=== PATIENT | female | born 1960 | race Caucasian/White ===

== ENCOUNTER 2018-04-14 08:26 | Emergency (ER) | payer BC ==
--- NOTE | 2018-04-14 09:09 | ED ---
Back Pain - HPI Summary HPI Summary: Pt. is a 57-year-old female who presents emergency department for right posterior rib pain since yesterday. Pt. states she has a history of COPD, smoker and a chronic cough. She states yesterday she went to get out of her recliner when she started coughing and felt a pop in her right low posterior rib cage. Pain is worse with deep inspiration and movement. She denies increase in SOB, cough, sputum production, fever. Pt. take lortab chronically at home. She does have a hx of blood clots but is currently therapeutic on Coumadin. Symptoms are mild in severity. - History of Current Complaint Chief Complaint: EDBackInjuryPain Stated Complaint: COUGH/BACK PAIN Time Seen by Provider: 04/14/18 08:48 Hx Obtained From: Patient Hx Last Menstrual Period: perimenopausal Pain Intensity: 10 - Allergies/Home Medications Allergies/Adverse Reactions: Allergies Allergy/AdvReac Type Severity Reaction Status Date / Time ciprofloxacin Allergy See Comment Verified 04/14/18 08:29 colchicine Allergy Nausea And Verified 04/14/18 08:29 Vomiting loratadine [From Claritin] Allergy Shortness Verified 04/14/18 08:29 of Breath Home Medications: Home Medications Allopurinol TAB* [Zyloprim 300 MG TAB*] 300 mg PO DAILY 04/14/18 [History Confirmed 04/14/18] Folic Acid 1 mg PO DAILY 04/14/18 [History Confirmed 04/14/18] Gabapentin CAP(*) [Neurontin 300 CAP(*)] 600 mg PO TID 04/14/18 [History Confirmed 04/14/18] Methotrexate TAB* 15 mg PO WEEKLY 04/14/18 [History Confirmed 04/14/18] Rosuvastatin Calcium 5 mg PO DAILY 04/14/18 [History Confirmed 04/14/18] PMH/Surg Hx/FS Hx/Imm Hx Previously Healthy: Yes Endocrine/Hematology History: Reports: Hx Anticoagulant Therapy, Hx Diabetes Denies: Hx Thyroid Disease Cardiovascular History: Reports: Hx Deep Vein Thrombosis, Hx Hypertension, Other Cardiovascular Problems/Disorders - HX OF 2 CLOTS IN LEFT LEG Denies: Hx Pacemaker/ICD Respiratory History: Reports: Hx Asthma, Hx Chronic Bronchitis, Hx Chronic Obstructive Pulmonary Disease (COPD), Hx Seasonal Allergies, Hx Sleep Apnea, Other Respiratory Problems/Disorders - COPD GI History: Reports: Hx Gastroesophageal Reflux Disease Denies: Hx Ulcer History: Denies: Hx Dialysis, Hx Renal Disease Musculoskeletal History: Reports: Hx Arthritis - PSORIATIC, Hx Back Problems - chronic low back pain, s/p laminectomy, Other Musculoskeletal History - right ankle pain Sensory History: Reports: Hx Contacts or Glasses - GLASSES Denies: Hx Hearing Aid Opthamlomology History: Reports: Hx Contacts or Glasses - GLASSES Psychiatric History: Reports: Hx Anxiety, Hx Depression Denies: Hx Panic Disorder - Surgical History Surgery Procedure, Year, and Place: laminectomy l-spine 2009. right ankle surgery X2 REMOVED ALL HARDWARE 10/31. carpal tunnel release right and left. GALLBLADDER Hx Anesthesia Reactions: No Infectious Disease History: Yes Infectious Disease History: Reports: Hx of Known/Suspected MRSA Denies: Hx Hepatitis, Hx Human Immunodeficiency Virus (HIV), Traveled Outside the [place] in Last 30 Days - Social History Occupation: Retired Lives: With Family Alcohol Use: Rare Substance Use Type: Reports: None Hx Tobacco Use: Yes - 1/2 PACK A DAY Smoking Status (MU): Current Every Day Smoker Type: Cigarettes Amount Used/How Often: 1 PPD X 30 YEARS Have You Smoked in the Last Year: Yes Review of Systems Constitutional: Negative Negative: Fever, Chills Cardiovascular: Negative Negative: Palpitations, Chest Pain Positive: Cough. Negative: Shortness Of Breath Neurological: Negative All Other Systems Reviewed And Are Negative: Yes Physical Exam Triage Information Reviewed: Yes Vital Signs On Initial Exam: Initial Vitals Temp Pulse Resp BP Pulse Ox 98.4 F 85 20 126/71 94 04/14/18 08:29 04/14/18 08:29 04/14/18 08:29 04/14/18 08:29 04/14/18 08:29 Vital Signs Reviewed: Yes Appearance: Positive: Well-Appearing - Pt. sitting on side of bed in NAD. Breathing easily on RA. Skin: Positive: Warm, Dry Head/Face: Positive: Normal Head/Face Inspection Eyes: Positive: Normal, EOMI Neck: Positive: Supple Respiratory/Lung Sounds: Positive: Other - Diminished breath sounds throughout without rales, wheezing or rhonchi. Pain on palpation to right low posterior rib cage Cardiovascular: Positive: Normal, RRR Neurological: Positive: Normal, CN Intact II-III Psychiatric: Positive: Affect/Mood Appropriate Diagnostics - Vital Signs Vital Signs Temp Pulse Resp BP Pulse Ox 04/14/18 08:29 98.4 F 85 20 126/71 94 - Laboratory Lab Statement: Any lab studies that have been ordered have been reviewed, and results considered in the medical decision making process. Back Pain Course/Dx - Course Assessment/Plan: Pt. presenting for rib pain after a coughing episode. She is afebrile. O2 saturation is 94% on RA which is low normal. Will obtain chest and rib xray. - Diagnoses Differential Diagnosis/HQI/PQRI: Positive: Strain, Sprain Provider Diagnoses: Pain in rib Discharge - Sign-Out/Discharge Documenting (check all that apply): Patient Departure - Discharge Plan Condition: Good Disposition: HOME Prescriptions: Azithromycin TAB* [Zithromax TAB (Z-ESAN) 250 mg #6 tabs] 2 tab PO .TODAY, THEN 1 DAILY #1 sean Patient Education Materials: Muscle Strain (ED), Bacterial Pneumonia (ED), Rib Contusion (ED) Referrals: Calixto Rodriguez MD [Primary Care Provider] - Additional Instructions: Schedule a follow up appointment with PCP Chest xray is showing possible pneumonia- given increase cough and sputum will start antibiotic Apply ice or heat to back Can continue pain medications as directed Return to ER for increased pain, fever, difficulty breathing - Billing Disposition and Condition Condition: GOOD Disposition: Home
--- NOTE | 2018-04-14 10:50 | RAD ---
INDICATION: Posterior right rib pain COMPARISON: CT of the chest dated August 08, 2017 TECHNIQUE: 7 views of the right ribs were obtained. FINDINGS: There are no radiographically apparent fractures or dislocations involving the ribs. There is a mild degree of cardiomegaly. The lungs overall exhibit mildly increased interstitial density. There is a questionable more focal density at the right lung base. IMPRESSION: 1. No radiographically apparent displaced rib fracture or pneumothorax. 2. Density at the right lung base possibly could represent pneumonia or atelectasis. 3. Overall the lungs exhibit increased interstitial density similar to the August 08, 2017 CT of the chest.
[2018-04-14 11:05] VITALS: BP 130/71
== END 2018-04-14 11:04 | disposition home or self-care (01) ==
LOC: ED 08:26
DX: R07.81 Pleurodynia (principal); J98.4 Other disorders of lung; I51.7 Cardiomegaly; F17.210 Nicotine dependence, cigarettes, uncomplicated; Z86.718 Personal history of other venous thrombosis and embolism; Z79.01 Long term (current) use of anticoagulants; Z88.3 Allergy status to other anti-infective agents; Z88.8 Allergy status to other drugs, medicaments and biological substances
CPT/HCPCS: 99282

== ENCOUNTER 2018-05-19 08:24 | Inpatient (IN) | payer BC ==
[2018-05-19] MEDS ORDERED: NS 0.9% 1000 ML* 1,000 ML IV ONE (09:05)
[2018-05-19] MEDS ORDERED: Diltiazem IV* 5 MG/ML 5 ML VIAL (for loading dose/IV Push) (25 MG) IV SLOW PU ONE (09:08)
--- NOTE | 2018-05-19 09:09 | ED ---
Back Pain - HPI Summary HPI Summary: This patient is a 57 year old F presenting to [facility] accompanied by with a chief complaint of R rib pain radiating to her back that began 8 weeks ago. The patient rates the pain 10/10 in severity. Symptoms aggravated by nothing. Symptoms alleviated by nothing. Patient reports swelling of bilateral feet and legs (began 3 days ago), tingling in bilateral feet (chronic), SOB, decreased urinary output, and loose stool with blood. Patient denies CP and palpitations. Patient states she was told she had a slightly dislocated rib after going to urgent care on 05/15/2018. - History of Current Complaint Chief Complaint: EDGeneral Stated Complaint: BACK PAIN Time Seen by Provider: 05/19/18 08:48 Hx Obtained From: Patient Hx Last Menstrual Period: perimenopausal Onset/Duration: Sudden Onset, Lasting Weeks, Still Present Onset/Duration: Started Weeks Ago, Still Present Timing: Constant Back Pain Location: Is Diffuse Severity Initially: Severe Severity Currently: Severe Pain Intensity: 10 Pain Scale Used: 0-10 Numeric Aggravating Symptom(s): Nothing Alleviating Symptom(s): Nothing Associated Signs And Symptoms: Positive: Other - Positive swelling of bilateral feet and legs (began 3 days ago), tingling in bilateral feet (chronic), SOB, decreased urinary output, and loose stool with blood. Negative CP and palpitations. - Allergies/Home Medications Allergies/Adverse Reactions: Allergies Allergy/AdvReac Type Severity Reaction Status Date / Time ciprofloxacin Allergy See Comment Verified 05/19/18 08:33 colchicine Allergy Nausea And Verified 05/19/18 08:33 Vomiting loratadine [From Claritin] Allergy Shortness Verified 05/19/18 08:33 of Breath Home Medications: Home Medications Gabapentin CAP(*) [Neurontin 300 CAP(*)] 1,200 mg PO BEDTIME 05/19/18 [History Confirmed 05/19/18] Warfarin TAB(*) [Coumadin TAB(*)] 5 mg PO TUTH 05/19/18 [History Confirmed 05/19] PMH/Surg Hx/FS Hx/Imm Hx Previously Healthy: No Endocrine/Hematology History: Reports: Hx Anticoagulant Therapy, Hx Diabetes Denies: Hx Thyroid Disease Cardiovascular History: Reports: Hx Deep Vein Thrombosis, Hx Hypertension, Other Cardiovascular Problems/Disorders - HX OF 2 CLOTS IN LEFT LEG Denies: Hx Pacemaker/ICD Respiratory History: Reports: Hx Asthma, Hx Chronic Bronchitis, Hx Chronic Obstructive Pulmonary Disease (COPD), Hx Seasonal Allergies, Hx Sleep Apnea, Other Respiratory Problems/Disorders - COPD GI History: Reports: Hx Gastroesophageal Reflux Disease Denies: Hx Ulcer History: Denies: Hx Dialysis, Hx Renal Disease Musculoskeletal History: Reports: Hx Arthritis - PSORIATIC, Hx Back Problems - chronic low back pain, s/p laminectomy, Other Musculoskeletal History - right ankle pain Denies: Hx Scoliosis Sensory History: Reports: Hx Contacts or Glasses - GLASSES Denies: Hx Hearing Aid Opthamlomology History: Reports: Hx Contacts or Glasses - GLASSES Neurological History: Denies: Hx Headaches Psychiatric History: Reports: Hx Anxiety, Hx Depression Denies: Hx Panic Disorder - Surgical History Surgery Procedure, Year, and Place: laminectomy l-spine 2009. right ankle surgery X2 REMOVED ALL HARDWARE 10/31. carpal tunnel release right and left. GALLBLADDER Hx Anesthesia Reactions: No - Immunization History Immunizations Up to Date: Yes Infectious Disease History: No Infectious Disease History: Reports: Hx of Known/Suspected MRSA Denies: Hx Hepatitis, Hx Human Immunodeficiency Virus (HIV), Traveled Outside the [place] in Last 30 Days - Family History Known Family History: Positive: Other - Negative anesthesia reaction - Social History Occupation: Retired Lives: With Family Alcohol Use: Rare Hx Substance Use: No Substance Use Type: Reports: None Hx Tobacco Use: Yes - 1/2 PACK A DAY Smoking Status (MU): Current Every Day Smoker Type: Cigarettes Amount Used/How Often: 1 PPD X 30 YEARS Have You Smoked in the Last Year: Yes Review of Systems Negative: Palpitations, Chest Pain Positive: Shortness Of Breath Positive: Diarrhea Genitourinary: Other - Positive decreased urinary output Positive: Edema Neurological: Other - Positive tingling in bilateral feet All Other Systems Reviewed And Are Negative: Yes Physical Exam - Summary Physical Exam Summary: VITAL SIGNS: Reviewed. GENERAL: Patient is a well-developed and obese female who is lying comfortable in the stretcher. Patient is not in any acute respiratory distress. She is able to speak in full sentences HEAD AND FACE: No signs of trauma. No ecchymosis, hematomas or skull depressions. No sinus tenderness. EYES: PERRLA, EOMI x 2, No injected conjunctiva, no nystagmus. EARS: Hearing grossly intact. Ear canals and tympanic membranes are within normal limits. MOUTH: Oropharynx within normal limits. NECK: Supple, trachea is midline, no adenopathy, no JVD, no carotid bruit, no c- spine tenderness, neck with full ROM. CHEST: Symmetric, no tenderness at palpation LUNGS: Clear to auscultation bilaterally. No wheezing or crackles. CVS: Regular rhythm, S1 and S2 present, no murmurs or gallops appreciated. Tachycardia at 160 BPM. Hypotensive ABDOMEN: Soft, non-tender. No signs of distention. No rebound no guarding, and no masses palpated. Bowel sounds are normal. EXTREMITIES: FROM in all major joints, no cyanosis or clubbing. Bilateral lower extremity swelling 2+ NEURO: Alert and oriented x 3. No acute neurological deficits. Speech is normal and follows commands. SKIN: Dry and warm Triage Information Reviewed: Yes Vital Signs On Initial Exam: Initial Vitals Temp Pulse Resp BP Pulse Ox 98.2 F 55 16 112/89 93 05/19/18 08:26 05/19/18 08:26 05/19/18 08:26 05/19/18 08:26 05/19/18 08:26 Vital Signs Reviewed: Yes Diagnostics - Vital Signs Vital Signs Temp Pulse Resp BP Pulse Ox 05/19/18 08:26 98.2 F 55 16 112/89 93 - Laboratory Result Diagrams: 05/21/18 05:25 05/21/18 05:25 Lab Statement: Any lab studies that have been ordered have been reviewed, and results considered in the medical decision making process. - Radiology CXR Radiology Interpretation Completed By: Radiologist - CXR reveals, per radiologist, 1. COPD. 2. Pulmonary vascular congestion. ED physician has reviewed this radiology report. - CT Thoracic spine CT CT Interpretation Completed By: Radiologist - Thoracic spine CT reveals, per radiologist, 1. OSTEOPENIA. 2. DEGENERATIVE DISC DISEASE AND OSTEOARTHRITIS. 3. THERE IS NARROWING OF THE CENTRAL CANAL WITH NEUROFORAMINAL NARROWING MOST PRONOUNCED ALONG THE LOWER LUMBAR SPINE. 4. THERE HAS BEEN INTERVAL DEVELOPMENT OF A LOBULATED MASS OF THE LEFT LOWER LOBE, WITH ENLARGEMENT OF THE LEFT ADRENAL GLAND, CONCERNING FOR METASTATIC DISEASE GIVEN THE HISTORY OF MALIGNANCY. ED physician has reviewed this radiology report. Lumbar Spine cT CT Interpretation Completed By: Radiologist - Lumbar spine CT reveals, per radiologist, 1. OSTEOPENIA. 2. DEGENERATIVE DISC DISEASE AND OSTEOARTHRITIS. 3. THERE IS NARROWING OF THE CENTRAL CANAL WITH NEUROFORAMINAL NARROWING MOST PRONOUNCED ALONG THE LOWER LUMBAR SPINE. 4. THERE HAS BEEN INTERVAL DEVELOPMENT OF A LOBULATED MASS OF THE LEFT LOWER LOBE, WITH ENLARGEMENT OF THE LEFT ADRENAL GLAND, CONCERNING FOR METASTATIC DISEASE GIVEN THE HISTORY OF MALIGNANCY. ED physician has reviewed this radiology report. - EKG 0918 Cardiac Rate: NL EKG Rhythm: Sinus Rhythm - [address] Segment: Normal Back Pain Course/Dx - Course Assessment/Plan: This patient is a 57 year old F presenting to [facility] accompanied by with a chief complaint of R rib pain radiating to her back that began 8 weeks ago. The patient rates the pain 10/10 in severity. Symptoms aggravated by nothing. Symptoms alleviated by nothing. Patient reports swelling of bilateral feet and legs (began 3 days ago), tingling in bilateral feet (chronic), SOB, decreased urinary output but denies any urinary retention or incontinence, and loose stool with blood but denies any fecal retention or incontinence.. Patient denies CP and palpitations. Patient states she was told she had a slightly dislocated rib after going to urgent care on . Initially the patient was placed in a nail setter which we noticed the patient was initially the patient with RVR 160 bpm. The patient was is hypotensive 80/60. The patient is afebrile. We immediately started with 2 IV assesses and the antecubital fossa is, even though the patient has musculoskeletal extremity edema the patient was given 1 L bolus of fluids due to the hypotension. The patient completed by herself to a normal sinus rhythm at 83 bpm. Blood work shows WBCs of 14.5, hemoglobin 13.1 hematocrit 41 and platelet is 110. Potassium level is 3.2, anion gap is 12, glucose 190, lactic acid is 2.4, total bili is 1.6, AST 52 AST of 92 CRP of 28 BNP of 243 total protein is 6. And T-spine CT and LS spine CT is still pending since the patient does not tolerate to light the flat and not to get the images. However it is important to get this images to rule out any type of abscess or infection in the spine. The patient continues to be a febrile however the WBCs and CRP is elevated and with the complaint of back pain we have to rule out any type of discitis, abscess or any other pathology in the lumbar spine. I didn't start the patient Zosyn as up with the spectrum antibiotics at this point. IV and gave the patient only one L of fluid since the patient seems to be in CHF versus bilateral lower extremity vascular insufficiency. I discussed all the findings and test results with and Dr. Oakley who accepted the patient for admission. Dr. Oakley will follow-up the CT scan of the lumbar spine and the thoracic spine. The patient also was given potassium chloride for hypokalemia and not place the patient in a Nitropatch since the patient's symptoms be overloaded. I will give the patient diluted 0.5 mg so she can tolerate the pain and get the CTs of the thoracic or lumbar spine. - Diagnoses Provider Diagnoses: Hypotension, Atrial fibrillation with RVR, Back pain, Bilateral lower extremity edema - Provider Notifications Discussed Care Of Patient With: Deena Oakley Time Discussed With Above Provider: 09:50 Instructed by Provider To: Other - Consult with Dr. Oakley (hospitalist) at 0950. She agrees to admit patient for further evaluation. - Critical Care Time Critical Care Time: 30-74 min Discharge - Sign-Out/Discharge Documenting (check all that apply): Patient Departure - Discharge Plan Condition: Improved Disposition: ADMITTED TO [facility] - Billing Disposition and Condition Condition: IMPROVED Disposition: Admitted to [facility] - Attestation Statements Document Initiated by Silvia: Yes Documenting Scribe: Fiona Armstrong Provider For Whom Silvia is Documenting (Include Credential): Jovani Wynn MD Scribe Attestation: IFiona, scribed for Jovani Wynn MD on 05/21/18 at 1830. Scribe Documentation Reviewed: Yes Provider Attestation: The documentation as recorded by the Fiona yee accurately reflects the service I personally performed and the decisions made by me, Jovani Wynn MD
[2018-05-19 09:37] LABS: Hematocrit 41 % (35-47); Hemoglobin 13.1 g/dl (12.0-16.0); Mean Corpuscular HGB Conc 32 g/dl (31-36); Mean Corpuscular Hemoglobin 27 pg (27-31); Mean Corpuscular Volume 86 fL (80-97); Mean Platelet Volume 9.8 um3 (7.4-10.4); Platelet Count 110 10^3/ul (150-450); Red Blood Count 4.84 10^6/ul (4.00-5.40); Red Cell Distribution Width 22 % (10.5-15); White Blood Count 14.5 10^3/ul (3.5-10.8)
[2018-05-19 09:44] LABS: INR 3.54 (0.77-1.02)
[2018-05-19 09:53] LABS: EGFR Non-African American 105.4 (>60)
--- NOTE | 2018-05-19 10:09 | RAD ---
HISTORY: SOB COMPARISONS: November 21, 2013 VIEWS: 4: Frontal dual-energy and lateral views of the chest. FINDINGS: CARDIOMEDIASTINAL SILHOUETTE: The cardiomediastinal silhouette is normal. KARLEY: The karley are normal. PLEURA: The costophrenic angles are sharp. No pleural abnormalities are noted. LUNG PARENCHYMA: There is hyperinflation with flattening of the diaphragm and expansion of the AP diameter of the chest. There is diffuse prominence of the central pulmonary vasculature. ABDOMEN: The upper abdomen is clear. There is no subphrenic gas. BONES AND SOFT TISSUES: Degenerative changes are noted along the spine. OTHER: None. IMPRESSION: 1. COPD. 2. PULMONARY VASCULAR CONGESTION.
[2018-05-19 10:21] LABS: ABS Basophils 0 10^3/ul (0-0.2); ABS Eosinophils 0.1 10^3/ul (0-0.6); ABS Lymphocytes 3.7 10^3/ul (1.0-4.8); ABS Monocytes 0.9 10^3/ul (0-0.8); ABS Neutrophils 9.8 10^3/ul (1.5-7.7)
[2018-05-19 10:23] LABS: ABS Basophils 0 10^3/ul (0-0.2); ABS Neutrophils 9.3 10^3/ul (1.5-7.7); Monocytes % 10 % (0-7)
[2018-05-19] MEDS ORDERED: Nitroglycerin 2% OINT* 1 GM PAK TOPICAL ONE (10:43)
[2018-05-19] MEDS ORDERED: Potassium Chlor TAB* 20 MEQ TAB.ER PO ONE ×2 (10:57→11:25)
[2018-05-19] MEDS ORDERED: Piperacillin/Tazobac ADVAN(*) 3.375 GM in NS 0.9% 100 ML* 100 ML IVPB ONE (11:00)
[2018-05-19] MEDS ORDERED: HYDROmorphone INJ* 2 MG/ML CARPUJECT SYRINGE IV SLOW PU ONE (11:04)
[2018-05-19] MEDS ORDERED: Furosemide IV* 10 MG/ML 2 ML VIAL (20 MG) IV ONE (11:23)
[2018-05-19] MEDS ORDERED: ALPRAZolam TAB* 0.25 MG PO PRN (11:24)
[2018-05-19] MEDS ORDERED: HYDROmorphone INJ1* 1 MG/ML SYRINGE IV SLOW PU PRN (11:26)
[2018-05-19] MEDS ORDERED: Dextrose 50% Syringe 50 ML* 25 GM/50 ML SYRINGE IV PUSH PRN (11:26)
[2018-05-19] MEDS ORDERED: Warfarin TAB(*) 5 MG PO SCH (12:00)
--- NOTE | 2018-05-19 12:41 | RAD ---
HISTORY: Back pain COMPARISONS: Head CT dated October 08, 2017 TECHNIQUE: Multiple contiguous axial CT scans were obtained of the thoracic and lumbar spine without intravenous contrast, with coronal and sagittal multiplanar reformations. FINDINGS: SPINAL CANAL: Evaluation of the central canal is limited on CT technique; however, there is no obvious canalicular mass or epidural hemorrhage. ALIGNMENT: There is a scoliotic curvature of the spine. VERTEBRAL BODIES: There is diffuse osteopenia. There is multilevel anterolateral marginal osteophyte formation. There are sclerotic reactive end plate changes most pronounced at L2-L3 and L4-L5. JOINTS: There is facet osteoarthritis most pronounced along the lower lumbar spine. There is costovertebral osteoarthritis. MUSCULATURE: There is moderate fatty infiltration. INTERVERTEBRAL DISCS: There is diffuse loss of intervertebral disc height throughout the spine. AXIAL IMAGES: On axial images, there is moderate narrowing of the central canal at L2-L3 with severe narrowing at L3-L4 and L4-L5 and moderate narrowing at L5-S1. There is multilevel neuroforaminal narrowing most pronounced along the lower thoracic spine. SOFT TISSUES: There has been interval development of a lobulated mass of the left lower lobe, measuring approximately 3.9 cm.. There is atherosclerosis of the aorta. There is masslike enlargement of the left adrenal gland. OTHER: None IMPRESSION: 1. OSTEOPENIA. 2. DEGENERATIVE DISC DISEASE AND OSTEOARTHRITIS. 3. THERE IS NARROWING OF THE CENTRAL CANAL WITH NEUROFORAMINAL NARROWING MOST PRONOUNCED ALONG THE LOWER LUMBAR SPINE. 4. THERE HAS BEEN INTERVAL DEVELOPMENT OF A LOBULATED MASS OF THE LEFT LOWER LOBE, WITH ENLARGEMENT OF THE LEFT ADRENAL GLAND, CONCERNING FOR METASTATIC DISEASE GIVEN THE HISTORY OF MALIGNANCY.
--- NOTE | 2018-05-19 14:52 | PN ---
Progress Note - Progress Note Date of Service: 05/19/18 Note: Results of Thoracic and lumbar CT scans reviewed. Note made of left lower lobe lung mass. Patient had recent workup for lung nodule, including PET scan 10/07 which was negative. Radiologist feels this is very suspicious for lung cancer with a met to the adrenal gland. Plan for ceftriaxone and doxycycline until can consult with Dr. Haro tomorrow regarding biopsy and further workup. Patient presented with elevated lactic acid, likely secondary to HR 160s, BP 80s and acute CHF. Repeat lactic acid down to 2.4. HR controlled, SBP 140s, diuresis with lasix underway. Patient has markers for sepsis, including elevated WBC, elevated lactic acid, new O2 requirement but I believe this is driven by fluid overload secondary to acute CHF as evidenced by pulmonary vascular congestion and 2+ pitting lower extremity edema. IVF are contraindicated, will continue to monitor closely.
[2018-05-19] MEDS: Insulin LISPRO* 1 UNITS UNIT SUBCUT SCH ×2 (15:15→17:00)
[2018-05-19] MEDS: oxyCODONE TAB* 5 MG TAB PO PRN (15:25)
[2018-05-19] MEDS: cefTRIAXone(*) 1 GM in NS 0.9% 50 ML* 50 ML IVPB SCH (15:25)
[2018-05-19 16:04] LABS: Urine Appearance Clear; Urine Blood Negative (Negative); Urine Color Straw; Urine Ketones Negative (Negative); Urine Protein Negative (Negative); Urine Specific Gravity 1.006 (1.010-1.030); Urine Urobilinogen Negative (Negative)
--- NOTE | 2018-05-19 16:22 | HP ---
CC: Dr. Rodriguez * [facility] MEDICINE HISTORY AND PHYSICAL: DATE OF ADMISSION: 05/19/18 PRIMARY CARE PHYSICIAN: Dr. Rodriguez. ATTENDING PHYSICIAN: Dr. Jam Rogers * (dictation provided by Karin Martinez NP ). CHIEF COMPLAINT: Back pain and shortness of breath. HISTORY OF PRESENT ILLNESS: Ms. 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 Ms. Kenyon states that 8 weeks ago, she was turning while sitting in a chair and felt a pop on the right side of her back. She had immediate worsening of her chronic underlying back pain. She presented to our ER on 04/14, with this complaint of pain, which would mean that her pain only started 4 weeks ago. She had a rib and chest x-ray that day that showed no evidence of displaced rib or pneumothorax, but it was suspected there was a possible pneumonia on the right lung base. She was patient was treated with azithromycin and discharged from the hospital. The patient states that in the interim since being here 04/14/18, she did follow up with her primary care provider's office twice, who evaluated her. She is very frustrated that they were unwilling to give her increased pain medications and "left her in pain for the past 8 weeks. " She denies any leg weakness or loss of bowel or bladder. The patient states that since the onset of the pain that she has been basically confined to a chair and has been in pain 24 hours a day. Recently, the patient has been feeling more short of breath. She has now noticed lower extremity edema. She has felt short of breath, which is worsened when trying to lie flat. She denies any sensation of rapid heart rate or palpitations. She has no known heart history per her report. Ultimately, she presented to the emergency room today primarily for pain, but also because of the shortness of breath. On arrival, the patient was noted to have a heart rate in 160s and an SBP per verbal report from the ER nursing staff. She converted back to a sinus rhythm before an EKG could be obtained. The patient now has a heart rate in the 70s with the blood pressure in 120s systolically. Her workup has included a chest x -ray that showed pulmonary vascular congestion. Her lungs are coarse crackles bilaterally to auscultation. She has lower extremity edema. Labs shows mild leukocytosis at 14.5. Her CRP is 28 only. Her BMP is 243. She has a lactic acidosis at 3.4. She has elevated liver enzymes with total bilirubin 1.6, AST 52, ALT 92, alk phos 319. Potassium is low as 3.2, but magnesium is normal at 2.0. Attempts were made for the patient to go for CT scan of lumbar and thoracic spine, but she has thus far been too uncomfortable to tolerate the procedure, but states she is feeling better now and the preparation is being made for her to go there. PAST MEDICAL HISTORY: 1. DVTs left leg approximately 15 years ago and then again 8 years ago, on chronic warfarin therapy. 2. COPD with chronic 1 pack a day smoking history. 3. Hyperlipidemia. 4. Psoriatic arthritis. 5. Hypertension. 6. Back surgery with 3 herniated disks in the past. MEDICATIONS: 1. Folic acid 1 mg p.o. daily. 2. Fexofenadine 180 mg p.o. daily. 3. Citalopram 40 mg p.o. daily. 4. Beclomethasone 40 mcg 2 puffs inhaled q.a.m. 5. Otezla 1 tablet p.o. b.i.d. 6. Allopurinol 300 mg p.o. daily. 7. Albuterol inhaler p.r.n. 8. Alprazolam 0.25 mg p.o. b.i.d. p.r.n. 9. Potassium chloride 10 mEq p.o. daily. 10. Pantoprazole 40 mg p.o. daily. 11. Methotrexate 15 mg p.o. weekly. 12. Metformin 500 mg p.o. b.i.d. 13. Lisinopril 20 mg p.o. daily. 14. Hydrocodone/acetaminophen 10/325 mg 1 to 2 tablets p.o. q.4 hours p.r.n. ( the patient was prescribed 7 tabs per day). 15. Hydrochlorothiazide 25 mg p.o. daily. 16. Warfarin 10 mg on Sunday, Sunday, Sunday, Sunday and Sunday with 5 mg on Sunday and . 17. Spiriva 1 cap inhaled daily. 18. Rosuvastatin 5 mg p.o. daily. 19. Gabapentin t.i.d. ALLERGIES: To CIPROFLOXACIN, COLCHICINE, and LORATADINE. FAMILY HISTORY: The patient reports her mother related to a brain bleed after a fall and dad related to lung cancer. SOCIAL HISTORY: The patient is a pack a day smoker. She denies alcohol use or drug use. She lives with her , Geovany, who is the healthcare proxy. REVIEW OF SYSTEMS: A 14-point review of systems was completed with Ms. Kenyon and all those not mentioned above were negative, except for the fact that the patient did note diarrhea 1 to 2 times a day with some blood on the paper when she wiped only. PHYSICAL EXAMINATION GENERAL: Ms. Kenyon is sitting in the wheelchair. 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 VITAL SIGNS: Temperature 98.2, pulse rate 72, respiratory rate 16, O2 saturation 94% on room air, blood pressure 121/88. LUNGS: Have coarse crackles bilaterally. HEART: S1, S2. No murmur, rub, or gallop and regular. ABDOMEN: Soft, protuberant, nontender. Bowel sounds are positive. EXTREMITIES: Positive for 2+ pitting edema bilateral lower extremities. NEURO: She is alert. She is oriented x3. She moves all extremities equally. There is no facial asymmetry or focal weakness. Extraocular movements are intact. SKIN: Intact. DIAGNOSTIC STUDIES/LAB DATA: WBC 14.5, hemoglobin 13.1, hematocrit 41, platelet count 110. INR 3.54. Sodium 140, potassium 3.2, chloride 101, serum bicarbonate 27, BUN 20, creatinine 0.59, glucose 109. D-lactic acid 3.4. Total bilirubin 1.6, magnesium 2.0, AST 52, ALT 92, alk phos 319. CRP 28.00. Troponin 0.01. BMP 243. TSH 0.84. Serum alcohol screen is negative. The chest x-ray is read as COPD with pulmonary vascular congestion. EKG from shows a heart rate of 83, sinus rhythm. There is some ST depressions in V3, V4, V5. ASSESSMENT AND PLAN: Ms. Kenyon is a 57-year-old female with a past medical history of morbid obesity, non-insulin dependent type 2 diabetes, chronic obstructive pulmonary disease with continued smoking, deep venous thromboses on chronic Coumadin therapy and history of back surgery with chronic back pain, for which she takes chronic hydrocodone therapy, who presents to the hospital today with concern for worsening back pain and new onset of shortness of breath , found to have tachycardia and hypotension on arrival. Our plans are for inpatient admission as I expect her length of stay to be greater than 2 days for the followin. Tachycardia: The ED physicians and nurse note that her heart rate was 160 and the blood pressure was 80/30, but unfortunately, we were not able to obtain an EKG. I have suspicion that this was atrial fibrillation related to the fact that the patient has underlying COPD, however this is not confirmed. Plan to replete electrolytes, specifically potassium, her magnesium is normal. Plan to obtain a transthoracic echocardiogram. In the event that this was AFib, the patient is already anticoagulated on Coumadin. We will continue with telemetry monitoring. 2. Acute chronic heart failure: The patient has no history of CHF, but clearly has evidence of this on physical exam and via chest x-ray. Our plans will be to treat with furosemide at low intermittent dosing given the fact that she was hypotensive on arrival. Currently, her blood pressure is in 120 systolically and she can tolerate Lasix well. Plan for a transthoracic echocardiogram to evaluate her cardiac function. She has no murmur on exam. It is possible that her heart failure symptoms are related to her tachyrhythmia. We will continue with telemetry. Her troponin was normal, but there are some EKG changes. Plan to repeat troponin and recheck EKG in the a.m. 3. Back pain. The patient has had back pain, which she says for 8 weeks, but according to the record, she was actually here only 4 weeks ago complaining that her pain started the day before. She has chronic back pain and is on high dose hydrocodone outpatient. The CT scans are pending. She has no alarm signs. I have a low suspicion for any abscess given her low CRP in the chronicity of her symptoms. We will continue to monitor for signs of infection and we will continue to consider whether or not MRI imaging would be useful during this hospitalization. Plan to continue with pain control efforts with hydromorphone IV and oxycodone p.r.n. I would like to start a long-acting pain medication for her, but I am hesitant to do so in the setting of hypotension and the need for diuresis with furosemide. I do note that the patient was seen by her primary care providers who were reluctant to change her pain medications and I would like to request the records from that office to help guide decision making here as well. 4. Diabetes. Plan to hold metformin and have blood glucose with q.a.c. with lispro sliding scale insulin coverage. 5. Anxiety and depression. Continue alprazolam and citalopram. 6. Psoriatic arthritis. The patient can continue on her methotrexate at home. I do note that this will make her immunocompromise host. 7. History of deep venous thromboses. Plan to continue her lower dose of warfarin as the patient INR is 3.54 and we will recheck in the a.m. 8. Chronic obstructive pulmonary disease . No evidence of acute exacerbation. Plan to continue her Spiriva. She will have albuterol p.r.n. 9. Question of diarrhea and reported blood per rectum. The patient reports 1 to 2 episodes of diarrhea recently. She has had report of blood on the toilet paper only at home. Her labs show a normal hemoglobin and hematocrit and stool occult blood have been ordered. 10. Elevated LFTs. I suspect that this is likely secondary to congestive heart failure given the overall collection of symptoms. She is taking significant amount of acetaminophen at 7 tabs of hydrocodone a day, but she has been doing this chronically. Plan to order a liver ultrasound. She is pain free on my exam today. Dr. Garces is aware and is offering to provide consultation this afternoon. 11. Code status is full code. TIME SPENT: Approximately 60 minutes was spent on the admission of this patient , more than half time spent with the patient at the bedside reviewing the events leading up to his hospitalization, performing the physical examination, and reviewing my plan of care. KARIN MARTINEZ NP [id number]/[facility] #: [id number] TRACEY
[2018-05-19] MEDS ORDERED: Warfarin TAB(*) 5 MG PO ONE (17:00)
[2018-05-19] MEDS: DOXYcycline CAP(*) 100 MG PO SCH (20:53)
[2018-05-19] MEDS: Gabapentin CAP(*) 400 MG PO SCH (20:53)
--- NOTE | 2018-05-19 21:47 | CONS ---
GASTROENTEROLOGY CONSULT: DATE OF CONSULT: 05/19/18 CONSULTING PHYSICIAN: Jam Rogers; Calixto Rodriguez. REASON FOR CONSULT: Elevated liver function test on a cholestatic pattern 5 weeks after an emergency room visit for back pain on 04/14/18, previous LFTs were available from 03/21/18. HISTORY OF PRESENT ILLNESS: This 57-year-old woman with morbid obesity, COPD ( still smoking), and psoriatic arthropathy, came to the emergency room with persisting fatigue and back pain and shortness of breath. Her LFTs were seemed to be elevated compared to a well documented baseline bilirubin 1.6 up from 0.6 eight weeks previously and alkaline phosphatase 319 up from 95 eight weeks previously. She gives a history of having "snapped my back 8 weeks ago," though the emergency room records document that the back injury was noted by her on . She recalls hearing something when she was arising from a chair and twisted , seen in the emergency room, she was sent home with Z-SEAN because she was also coughing. In follow-up at [facility], she was given trazodone to help her sleep despite increased back pain and then latter on given baclofen. She did overlap them and last took the baclofen yesterday. She has not had any other antibiotic. She recalls using Z-SEAN at least once before in the remote past. She states that her appetite has been poor, but there has been no vomiting. She describes her back pain and general thoracic musculoskeletal stress as "24/7 ". She has no bowel complaints. She has been on no other antibiotic recently. She denies any past history of liver problem or any family history of liver problems. PAST MEDICAL HISTORY: 1. Morbid obesity. 2. Adult onset diabetes - metformin her only agent [place] [address] Rodriguez. 3. Dyspepsia - on pantoprazole since 2011 she estimates. 4. Gout - on allopurinol 1 year. 5. Psoriatic arthropathy - on methotrexate since 2012, 15 mg weekly and then Otezla for the last 2 years. 6. Anxiety and depression - citalopram started in the late , she estimates. 7. History of DVT, left leg clots x2 without any known embolism - on warfarin, most of the time since 1997. 8. Hypercholesterolemia - Crestor since 2016. She cannot recall what preceded that. 9. Hypertension - on lisinopril since 2009. 10. COPD - still smoking. 11. Status post multiple ankle surgeries and [facility] - original ankle surgery August 2016 and much follow up with Dr. Adrian in the recent years including an infection in 2011. 12. Cholecystectomy - [address] Newton, 1 day hospitalization. Meds - reviewed all 12 on med recon form - of note Z pack not listed Allergies reviewed SOCIAL HISTORY: She lives with her who she says is overweight and in poor health. 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 REVIEW OF SYSTEMS: No history of hepatitis, jaundice, TB, hemoptysis, syncope, angina, [place], congestive failure or indeed any cardiac disease at all she says. No abdominal surgery other than the cholecystectomy. She has never had a colonoscopy or upper endoscopy. PHYSICAL EXAM: She is a morbidly obese woman, in a chair, chronically ill, oxygen applied. She is somewhat breathless at rest. HEENT exam shows no icterus, but her complexion is sallow. Mucous membranes are normal. She has no adenopathy, but obesity limits the exam. Breath sounds are diminished symmetrically, but no rhonchi. Heart sounds are distant, regular without a heart murmur. Sounds are distant. The abdomen is grossly obese and the exam is limited, but there is no tenderness. Bowel sounds are positive. Rectal deferred as it is impractical and low priority. DIAGNOSTIC STUDIES/LAB DATA: Radiology - today only chest x-ray showing congestion. A year ago, she had a lung CT showing possible nodules. Follow up PET scan was unremarkable and reassuring. Labs - KENIA 2011 negative. Rheumatoid 2011 negative. In September 2016, hepatitis B and C antibodies non-reactive. IMPRESSION: The woman with severe morbid obesity, chronic obstructive pulmonary disease, ongoing tobacco abuse, and chronic back pain on multiple medications, now with a cholestatic pattern of abnormal LFTs. Low back pain could relate to biliary tree, character of history is not compatible with that. She has had a cholecystectomy. Most likely, this cholestatic reaction and given the long-term administration of most of her meds, most likely culprit would be azithromycin and the Z-SEAN and it is expected that this will continue to improve. Cor pulmonale and congestive liver changes are possible, but probably not as likely. [id number]/[facility] #: [id number] TRACEY
[2018-05-20] MEDS: oxyCODONE TAB* 5 MG TAB PO PRN ×3 (03:51→19:31)
[2018-05-20] MEDS ORDERED: Furosemide IV* 10 MG/ML 2 ML VIAL (20 MG) IV ONE ×2 (06:00→13:00)
[2018-05-20 07:17] LABS: Hematocrit 41 % (35-47); Hemoglobin 12.6 g/dl (12.0-16.0); Mean Corpuscular HGB Conc 31 g/dl (31-36); Mean Corpuscular Hemoglobin 27 pg (27-31); Mean Corpuscular Volume 86 fL (80-97); Mean Platelet Volume 9.3 um3 (7.4-10.4); Platelet Count 86 10^3/ul (150-450); Red Blood Count 4.72 10^6/ul (4.00-5.40); Red Cell Distribution Width 22 % (10.5-15); White Blood Count 13.4 10^3/ul (3.5-10.8)
[2018-05-20 07:20] LABS: EGFR Non-African American 109.7 (>60)
[2018-05-20 07:31] LABS: INR 2.91 (0.77-1.02)
[2018-05-20 08:17] LABS: ABS Basophils 0 10^3/ul (0-0.2); ABS Eosinophils 0.1 10^3/ul (0-0.6); ABS Lymphocytes 3.1 10^3/ul (1.0-4.8); ABS Monocytes 0.5 10^3/ul (0-0.8); ABS Neutrophils 9.7 10^3/ul (1.5-7.7)
[2018-05-20] MEDS: Tiotropium CAP.INH* CAP.INH/18 MCG (USE ORDER SET !) INH SCH (08:17)
[2018-05-20 08:21] LABS: ABS Basophils 0 10^3/ul (0-0.2); ABS Neutrophils 8.6 10^3/ul (1.5-7.7); Monocytes % 6 % (0-7)
[2018-05-20] MEDS: Insulin LISPRO* 1 UNITS UNIT SUBCUT SCH ×3 (08:34→16:52)
[2018-05-20] MEDS ORDERED: Pneumococcal *Vac Polyvalent 0.5 ML VIAL IM ONE (09:00)
[2018-05-20] MEDS ORDERED: Potassium Chlor TAB* 10 MEQ TAB.ER PO SCH (09:00)
[2018-05-20] MEDS ORDERED: Insulin GLARGINE(*) 1 UNITS UNIT SUBCUT SCH (09:00)
[2018-05-20] MEDS: Gabapentin CAP(*) 300 MG PO SCH ×2 (10:02→12:12)
[2018-05-20] MEDS: Folic Acid TAB* 1 MG PO SCH (10:03)
[2018-05-20] MEDS: Allopurinol TAB* 300 MG PO SCH (10:03)
[2018-05-20] MEDS: DOXYcycline CAP(*) 100 MG PO SCH ×2 (10:03→21:07)
[2018-05-20] MEDS: Omeprazole CAP* 20 MG PO SCH (10:03)
[2018-05-20] MEDS: Potassium Chlor TAB* 10 MEQ TAB.ER PO SCH ×2 (10:03→12:11)
[2018-05-20] MEDS: Potassium Chlor TAB* 20 MEQ TAB.ER PO SCH ×2 (10:04→21:07)
[2018-05-20] MEDS: Citalopram TAB* 40 MG PO SCH (10:04)
[2018-05-20] MEDS: Nystatin TOP POWDER* 15 GM BTL TOPICAL SCH ×3 (10:10→21:08)
--- NOTE | 2018-05-20 10:23 | RAD ---
Indication: Elevated LFTs. Wheelchair bound. Hypotension, atrial fibrillation, CHF. Comparison: October 08, 2017 PET/CT. Technique: RIGHT upper quadrant ultrasound. Report: Appropriate direction flow documented in the portal and hepatic veins. 33 cm liver is markedly heterogeneous echotexture liver with innumerable focal target morphology centrally hyperechoic peripherally hypoechoic 2 cm or smaller lesions and larger more confluent heterogeneously hypoechoic regions measuring up to 14 cm which may represent focal regions of fatty sparing or confluent mass. Negative for intrahepatic biliary dilatation. 8.2 mm common bile duct. No conspicuous stones within the visualized common bile duct. Post cholecystectomy. Negative for sonographic Guzman's sign. The pancreatic tail is partially obscured due to bowel gas with the visualized pancreas unremarkable. Negative for ascites. 10.5 x 5.3 x 5.4 cm RIGHT kidney is remarkable for mild cortical atrophy. IMPRESSION: #. Markedly abnormal enlarged liver concerning for presence of metastatic disease or primary hepatic satellite lesions. Correlate with clinical assessment and consider ultrasound-guided biopsy for pathologic assessment. Screening of the colon for colon cancer. #. Negative for ascites. #. Mildly prominent common bile duct which may be a normal finding in setting of prior cholecystectomy.
--- NOTE | 2018-05-20 10:28 | PN ---
Subjective Date of Service: 05/20/18 Interval History: Ms. Kenyon reports continued low back pain. She notes continued shortness of breath but thinks that it has improved. She has noticed no real change to her lower extremity edema. Objective Active Medications: Albuterol (Ventolin Hfa Inhaler*) 2 puff INH Q4HR PRN Allopurinol (Zyloprim Tab*) 300 mg PO DAILY MARI Alprazolam (Xanax Tab*) 0.25 mg PO BID PRN Citalopram Hydrobromide (Celexa Tab*) 40 mg PO DAILY MARI Dextrose (D50w Syringe 50 Ml*) 12.5 gm IV PUSH .FOR FS < 60 - SS PRN Doxycycline Hyclate (Vibramycin Cap(*)) 100 mg PO BID MARI Folic Acid (Folvite Tab*) 1 mg PO DAILY MARI Gabapentin (Neurontin Cap(*)) 600 mg PO 0900,1200 MARI Gabapentin (Neurontin Cap(*)) 1,200 mg PO BEDTIME MARI Hydromorphone HCl (Dilaudid Inj1s*) 0.5 mg IV SLOW PU Q4H PRN Ceftriaxone Sodium 1 gm/ (Sodium Chloride) 50 mls @ 200 mls/hr IVPB Q24H MARI Insulin Glargine (Lantus(*)) 5 units SUBCUT QAM MARI Insulin Human Lispro (Humalog*) 0 units SUBCUT AC MAIR; Protocol Nystatin (Nystatin Top Powder*) 1 applic TOPICAL TID MARI Omeprazole (Prilosec Cap*) 20 mg PO DAILY@0730 MARI Oxycodone HCl (Roxycodone Tab*) 10 mg PO Q4H PRN Potassium Chloride (Klor Con Er Tab*) 20 meq PO BID MARI Potassium Chloride (Klor Con Er Tab*) 40 meq PO 0800,1200 MARI Tiotropium [place] (Spiriva Cap.Inh*) 1 cap INH DAILY MARI Vital Signs: Temp Pulse Resp BP Pulse Ox 98.5 F 76 18 134/74 97 05/20/18 07:49 05/20/18 08:19 05/20/18 10:04 05/20/18 07:49 05/20/18 08:19 Oxygen Devices in Use Now: Nasal Cannula Appearance: Female sitting up in chair in NAD Eyes: No Scleral Icterus Ears/Nose/Mouth/Throat: Mucous Membranes Moist Neck: Trachea Midline Respiratory: Symmetrical Chest Expansion and Respiratory Effort, - - Minimal crackles in bases, improved since arrival Cardiovascular: NL Sounds; No Murmurs; No JVD, - - +2 pitting edema B LEs Abdominal: NL Sounds; No Tenderness; No Distention Lymphatic: No Cervical Adenopathy Skin: No Rash or Ulcers Neurological: Alert and Oriented x 3, NL Muscle Strength and Tone Nutrition: Taking PO's Result Diagrams: 05/20/18 06:45 05/20/18 06:45 Microbiology and Other Data: Microbiology 05/19/18 10:01 Aerobic Blood Culture - Preliminary Blood Venous No Growth Day 1 Anaerobic Blood Culture - Preliminary No Growth Day 1 05/19/18 09:23 Aerobic Blood Culture - Preliminary Blood Venous No Growth Day 1 Anaerobic Blood Culture - Preliminary No Growth Day 1 Assess/Plan/Problems-Billing Assessment: Ms. 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 - Patient Problems (1) Lung mass Comment: - New left lower lobe mass noted on CT thoracic spine, as well as mass on left adrenal gland. Radiologist strongly suspicious for lung cancer with metastasis. However, patient did have a negative PET scan of the chest 10/07. She is a detention smoker, currently smoke 1 pack per day. - Plan to continue ceftriaxone and doxycycline for now. Dr. Fischer to consult. (2) Elevated LFTs Comment: - Mild elevation in LFTs, unchanged since arrival. No abdominal pain. - Appreciate consultation from Dr. Garces. Liver US shows markedly enlarged and abnormal liver, concerning for metastasis. - Dr. Fischer to consult. (3) Acute CHF Comment: - Responding well to lasix, repeat dose at 1300 today. - May be tachycardia related given high HR on arrival. No events noted on telemetry, continue monitoring. - No hx of CHF, echo pending. (4) Hypokalemia Comment: - Continue repletion (5) Diabetes Comment: - BGs 200 this AM. - Start lantus 5 units qPM with lispro SSI coverage for meals. Hold metformin. (6) Hypertension Comment: - SBP 100-130s. - Continue furosemide for CHF, resume hctz. Hold lisinopril while diuresing. (7) Chronic back pain Comment: - Acute worsening of back pain 4 weeks ago after she turned in a chair and heard a "crack." - CT lumbar and thoracic spine show degenerative disk disease and osteoarthritis only. - Continue oxycodone po with dilaudid IV prn (wean off IV today). - Question if pain related to above noted masses, though described today as only low back pain. (8) COPD (chronic obstructive pulmonary disease) Comment: - No evidence of acute exacerbation. - Continue nebs prn with spiriva (9) DVT prophylaxis Comment: - Warfarin with therapeutic INR. (10) Full code status Comment: Status and Disposition: Inpatient. Anticipate discharge to home when medically stable.
[2018-05-20] MEDS: Hydrochlorothiazide TAB* 25 MG PO SCH (11:12)
[2018-05-20] MEDS ORDERED: Phytonadione Oral Solution* 5 MG/25 ML UDC PO ONE (11:44)
--- NOTE | 2018-05-20 12:49 | ECHO ---
Patient: DARRIAN BURKETT [facility] Rec#: [id number] : 1960 Date: 05/20/2018 Age: 57y Height: 168 cm / 66.1 in Weight: 136 kg / 299.7 lbs Sex: F BSA: 2.38 Room#: 439 Admit Date#: 05/19/2018 Type: Inpatient Referring: Karin Martinez NP Reading: Bryan Inman MD Director E Learning: Sade Wilbunr RDCS,RDMS Transthoracic Echocardiogram Indication: AFIB, SOB BP: 139/52 HR: 78 Rhythm: NSR Findings History: COPD, left lung mass, EDEMA, DM, smoker Technical Comments: The study is technically limited due to the patient's history of COPD. Left Ventricle: The left ventricular chamber size is normal. Mild concentric left ventricular hypertrophy is observed. Global left ventricular wall motion and contractility are within normal limits. There is normal left ventricular systolic function. The estimated ejection fraction is 60-65%. There is no consistent Doppler evidence of clinically significant diastolic dysfunction. Left Atrium: The left atrium is moderately dilated. Right Ventricle: The right ventricle is mildly dilated. The right ventricular global systolic function is normal. Right Atrium: The right atrium is mildly dilated. Aortic Valve: The aortic valve structure is not well visualized. There is no evidence of aortic valve thickening. There is no evidence of aortic regurgitation. There is no evidence of aortic stenosis. Mitral Valve: There is mitral annular calcification. The mitral valve leaflets are mildly thickened. There is no evidence of mitral regurgitation. There is no evidence of mitral stenosis. Tricuspid Valve: The tricuspid valve leaflets are normal. There is no evidence of tricuspid valve regurgitation. Unable to estimate the right ventricular systolic pressure. Pulmonic Valve: The pulmonic valve structure is not well visualized. There is no evidence of pulmonic regurgitation. Pericardium: There is no significant pericardial effusion. Aorta: The aorta is not well visualized. The aortic arch is not well visualized. The aortic root is normal in size. Pulmonary Artery: The main pulmonary artery is not well visualized. Venous: The inferior vena cava appears normal in size. There is no change in the dimension of the inferior vena cava with respiration consistent with markedly increased right atrial pressure. Summary: There are no significant changes when compared to the previous study done on 11/29/09 Conclusions Global left ventricular wall motion and contractility are within normal limits. The estimated ejection fraction is 60-65%. The right ventricular global systolic function is normal. There is no evidence of aortic stenosis. There is no evidence of mitral regurgitation. There is no evidence of tricuspid valve regurgitation. Unable to estimate the right ventricular systolic pressure. There is no significant pericardial effusion. There are no significant changes when compared to the previous study done on 11/29/09 Measurements Name Value Normal Range RVIDd (AP) 2D 3.1 cm (0.9 - 2.6) RVDdMajor (2D) 4.6 cm (2.2 - 4.4) RAd ISD 4CH 5.5 cm (3.4 - 4.9) RA (A4C)W 3.4 cm (2.9 - 4.6) IVSd (2D) 1.3 cm (0.6 - 1) LVPWd (2D) 1.1 cm (0.6 - 1) LVIDd (2D) 5.3 cm (3.6 - 5.4) LVIDs (2D) 3.8 cm - LV FS (2D) 29 % (25 - 45) Aortic Annulus 2.3 cm (1.4 - 2.6) LA dimension (AP) 2D 4.2 cm (2.3 - 3.8) LAd ISD 4CH 6.1 cm (2.9 - 5.3) LA ISD 4CH W 4.5 cm (2.5 - 4.5) Name Value Normal Range MV E-wave Vmax 0.7 m/sec - MV deceleration time 132 msec - MV A-wave Vmax 0.6 m/sec - MV E:A ratio 1.1 ratio - LV septal e' Vmax 0.09 m/sec - LV lateral e' Vmax 0.07 m/sec - LV E:e' septal ratio 8 ratio - LV E:e' lateral ratio 10 ratio - Name Value Normal Range AV Vmax 1.4 m/sec - AV VTI 26 cm - AV peak gradient 8 mmHg - AV mean gradient 4 mmHg - LVOT Vmax 0.9 m/sec - LVOT VTI 18 cm - LVOT peak gradient 3.2 mmHg - LVOT mean gradient 2 mmHg - ALVINA Vmax 0.5 m/sec - Name Value Normal Range RAP 8 mmHg - IVC diameter 1.9 cm - Name Value Normal Range PV Vmax 1.1 m/sec - PV peak gradient 5 mmHg -
[2018-05-20] MEDS ORDERED: Iodixanol* (CONTRAST) 320 MG/ML 100 ML SDV IV ONE (14:05)
[2018-05-20] MEDS: cefTRIAXone(*) 1 GM in NS 0.9% 50 ML* 50 ML IVPB SCH (15:30)
--- NOTE | 2018-05-20 15:31 | PN ---
Medicine Progress Note - Date of Service Date of Service: 05/20/18 - Subjective Subjective: slight improvement from yesterday re: gi sx; pt with liver us showing possible mets; just returned from CT; labs about the same - Objective Objective: Vital Signs 05/19/18 05/19/18 05/19/18 15:38 19:44 19:52 Temperature 98.2 F 98.5 F Pulse Rate 76 83 Respiratory 14 16 16 Rate Blood Pressure 129/38 128/45 (mmHg) O2 Sat by Pulse 94 94 Oximetry 05/19/18 05/19/18 05/19/18 20:00 20:53 23:40 Temperature Pulse Rate Respiratory 16 16 18 Rate Blood Pressure (mmHg) O2 Sat by Pulse Oximetry 05/20/18 05/20/18 05/20/18 00:03 03:11 03:51 Temperature 97.5 F 96.1 F Pulse Rate 69 76 Respiratory 28 28 20 Rate Blood Pressure 103/48 139/52 (mmHg) O2 Sat by Pulse 99 99 Oximetry 05/20/18 05/20/18 05/20/18 05:57 07:49 07:53 Temperature 98.5 F Pulse Rate 84 Respiratory 18 20 22 Rate Blood Pressure 134/74 (mmHg) O2 Sat by Pulse 98 Oximetry 05/20/18 05/20/18 05/20/18 08:19 08:35 10:02 Temperature Pulse Rate 76 Respiratory 20 20 18 Rate Blood Pressure (mmHg) O2 Sat by Pulse 97 Oximetry 05/20/18 05/20/18 05/20/18 10:04 12:12 12:13 Temperature Pulse Rate Respiratory 18 18 18 Rate Blood Pressure (mmHg) O2 Sat by Pulse Oximetry Current Medications Albuterol (Ventolin Hfa Inhaler*) 2 puff INH Q4HR PRN PRN Reason: SOB/WHEEZING Allopurinol (Zyloprim Tab*) 300 mg PO DAILY [facility] Last Admin: 05/20/18 10:03 Dose: 300 mg Alprazolam (Xanax Tab*) 0.25 mg PO BID PRN PRN Reason: ANXIETY Citalopram Hydrobromide (Celexa Tab*) 40 mg PO DAILY [facility] Last Admin: 05/20/18 10:04 Dose: 40 mg Dextrose (D50w Syringe 50 Ml*) 12.5 gm IV PUSH .FOR FS < 60 - SS PRN PRN Reason: FS < 60 Doxycycline Hyclate (Vibramycin Cap(*)) 100 mg PO BID [facility] Last Admin: 05/20/18 10:03 Dose: 100 mg Folic Acid (Folvite Tab*) 1 mg PO DAILY [facility] Last Admin: 05/20/18 10:03 Dose: 1 mg Gabapentin (Neurontin Cap(*)) 600 mg PO 0900,1200 [facility] Last Admin: 05/20/18 12:12 Dose: 600 mg Gabapentin (Neurontin Cap(*)) 1,200 mg PO BEDTIME [facility] Last Admin: 05/19/18 20:53 Dose: 1,200 mg Hydrochlorothiazide (Hydrodiuril Tab*) 25 mg PO DAILY [facility] Last Admin: 05/20/18 11:12 Dose: 25 mg Hydromorphone HCl (Dilaudid Inj1s*) 0.5 mg IV SLOW PU Q4H PRN PRN Reason: PAIN Last Admin: 05/20/18 08:35 Dose: 0.5 mg Ceftriaxone Sodium 1 gm/ (Sodium Chloride) 50 mls @ 200 mls/hr IVPB Q24H [facility] Last Admin: 05/19/18 15:25 Dose: 200 mls/hr Insulin Glargine (Lantus(*)) 5 units SUBCUT QAM [facility] Last Admin: 05/20/18 08:34 Dose: 5 units Insulin Human Lispro (Humalog*) 0 units SUBCUT AC [facility]; Protocol Last Admin: 05/20/18 12:11 Dose: 9 units Nystatin (Nystatin Top Powder*) 1 applic TOPICAL TID [facility] Last Admin: 05/20/18 10:10 Dose: 1 applic Omeprazole (Prilosec Cap*) 20 mg PO DAILY@0730 [facility] Last Admin: 05/20/18 10:03 Dose: 20 mg Oxycodone HCl (Roxycodone Tab*) 10 mg PO Q4H PRN PRN Reason: PAIN Last Admin: 05/20/18 12:12 Dose: 10 mg Potassium Chloride (Klor Con Er Tab*) 20 meq PO BID [facility] Last Admin: 05/20/18 10:04 Dose: 20 meq Tiotropium [place] (Spiriva Cap.Inh*) 1 cap INH DAILY [facility] Last Admin: 05/20/18 08:17 Dose: 1 cap Intake & Output 05/18/18 05/19/18 05/20/18 10/02/18 06:59 06:59 06:59 06:59 Intake Total 205 480 Output Total 2100 0 Balance -1895 480 Weight 294 lb 11.2 oz 294 lb Intake: IV Fluids 155 ABX 5 IVPB 50 ABX 50 Oral 0 480 Output: Urine 2100 0 Other: # Bowel Movements 0 ADLs: Meal Record Start: 05/19/18 12: 14 Freq: DAILY@0900,1400,1800 Status: Active Protocol: Created 05/19/18 12:14 System (Rec: 05/19/18 12:14 System [email or web address]) Document 05/19/18 18:00 [id number] (Rec: 05/19/18 18:26 [id number] [email or web address]) Document 05/20/18 09:00 [id number] (Rec: 05/20/18 14:44 [id number] [id number]) Document 05/20/18 14:00 [id number] (Rec: 05/20/18 14:45 [id number]) Intake and Output Start: 05/19/18 08: 32 Freq: Status: Cancelled Protocol: Created 05/19/18 08:32 System (Rec: 05/19/18 08:32 System [id number]) Intake and Output Start: 05/19/18 12: 14 Freq: DAILY@0600,1400,2200 Status: Cancelled Protocol: Created 05/19/18 12:14 System (Rec: 05/19/18 12:14 System [email or web address]) Intake and Output Start: 05/19/18 14: 42 Freq: 06,14,2200 Status: Active Protocol: Created 05/19/18 14:42 [id number] (Rec: 05/19/18 14:42 BKG [id number]) Document 05/19/18 22:00 [id number] (Rec: 05/19/18 22:41 [id number]) Document 05/20/18 06:00 [id number] (Rec: 05/20/18 07:03 [id number] [id number]) Document 05/20/18 14:00 [id number] (Rec: 05/20/18 14:45 [id number]) Last Finger Stick Glucose Documented by Nursing: General: Lungs: Cardiovascular: Abdomen: Extremities: Neuro: - Labs Labs: Laboratory Results - last 24 hr 05/19/18 05/19/18 05/19/18 15:20 15:20 15:41 WBC RBC Hgb Hct MCV MCH MCHC RDW Plt Count MPV Neut % (Auto) Lymph % (Auto) [place] % (Auto) Eos % (Auto) Baso % (Auto) Absolute Neuts (auto) Absolute Lymphs (auto) Absolute Monos (auto) Absolute Eos (auto) Absolute Basos (auto) Absolute Nucleated RBC Neutrophils % Lymphocytes % Monocytes % Eosinophils % Basophils % Nucleated RBC % Abs Neuts (Manual) Abs Lymphs (Manual) Abs Monocytes (Manual) Absolute Eos (Manual) Abs Basophils (Manual) Nucleated RBCs/100 WBC Normal RBC Morphology INR (Anticoag Therapy) Sodium Potassium Chloride Carbon Dioxide Anion Gap BUN Creatinine Est GFR ( Amer) Est GFR (Non-Af Amer) BUN/Creatinine Ratio Glucose POC Glucose (mg/dL) Lactic Acid Calcium Total Bilirubin AST ALT Alkaline Phosphatase Troponin I 0.04 H* Total Protein Albumin Globulin Albumin/Globulin Ratio Urine Color Straw Urine Appearance Clear Urine pH 6.0 Ur Specific [place] 1.006 L Urine Protein Negative Urine Ketones Negative Urine Blood Negative Urine Nitrate Negative Urine Bilirubin Negative Urine Urobilinogen Negative Ur Leukocyte Esterase Negative Urine Glucose Negative Urine Opiates Screen Presumptive positive A Ur Barbiturates Screen None detected Ur Phencyclidine Scrn None detected Ur Amphetamines Screen None detected U Benzodiazepines Scrn None detected Urine Cocaine Screen None detected U Cannabinoids Screen None detected 05/19/18 05/19/18 05/20/18 16:30 17:07 06:45 WBC 13.4 H RBC 4.72 Hgb 12.6 Hct 41 MCV 86 MCH 27 MCHC 31 RDW 22 H Plt Count 86 L MPV 9.3 Neut % (Auto) Not Reportable Lymph % (Auto) Not Reportable [place] % (Auto) Not Reportable Eos % (Auto) Not Reportable Baso % (Auto) Not Reportable Absolute Neuts (auto) 9.7 H Absolute Lymphs (auto) 3.1 Absolute Monos (auto) 0.5 Absolute Eos (auto) 0.1 Absolute Basos (auto) 0 Absolute Nucleated RBC Not Reportable Neutrophils % 64 Lymphocytes % 29 Monocytes % 6 Eosinophils % 1 Basophils % 0 Nucleated RBC % Not Reportable Abs Neuts (Manual) 8.6 H Abs Lymphs (Manual) 3.9 Abs Monocytes (Manual) 0.8 Absolute Eos (Manual) 0.1 Abs Basophils (Manual) 0 Nucleated RBCs/100 WBC 1 H Normal RBC Morphology Normal INR (Anticoag Therapy) Sodium Potassium Chloride Carbon Dioxide Anion Gap BUN Creatinine Est GFR ( Amer) Est GFR (Non-Af Amer) BUN/Creatinine Ratio Glucose POC Glucose (mg/dL) 200 H Lactic Acid 1.4 Calcium Total Bilirubin AST ALT Alkaline Phosphatase Troponin I Total Protein Albumin Globulin Albumin/Globulin Ratio Urine Color Urine Appearance Urine pH Ur Specific [place] Urine Protein Urine Ketones Urine Blood Urine Nitrate Urine Bilirubin Urine Urobilinogen Ur Leukocyte Esterase Urine Glucose Urine Opiates Screen Ur Barbiturates Screen Ur Phencyclidine Scrn Ur Amphetamines Screen U Benzodiazepines Scrn Urine Cocaine Screen U Cannabinoids Screen 05/20/18 05/20/18 05/20/18 06:45 06:45 07:18 WBC RBC Hgb Hct MCV MCH MCHC RDW Plt Count MPV Neut % (Auto) Lymph % (Auto) [place] % (Auto) Eos % (Auto) Baso % (Auto) Absolute Neuts (auto) Absolute Lymphs (auto) Absolute Monos (auto) Absolute Eos (auto) Absolute Basos (auto) Absolute Nucleated RBC Neutrophils % Lymphocytes % Monocytes % Eosinophils % Basophils % Nucleated RBC % Abs Neuts (Manual) Abs Lymphs (Manual) Abs Monocytes (Manual) Absolute Eos (Manual) Abs Basophils (Manual) Nucleated RBCs/100 WBC Normal RBC Morphology INR (Anticoag Therapy) 2.91 H Sodium 143 Potassium 3.3 L Chloride 101 Carbon Dioxide 34 H Anion Gap 8 BUN 20 Creatinine 0.57 Est GFR ( Amer) 132.8 Est GFR (Non-Af Amer) 109.7 BUN/Creatinine Ratio 35.1 H Glucose 206 H POC Glucose (mg/dL) 221 H Lactic Acid Calcium 8.3 L Total Bilirubin 1.60 H AST 57 H ALT 93 H Alkaline Phosphatase 307 H Troponin I Total Protein 5.9 L Albumin 3.6 Globulin 2.3 Albumin/Globulin Ratio 1.6 Urine Color Urine Appearance Urine pH Ur Specific [place] Urine Protein Urine Ketones Urine Blood Urine Nitrate Urine Bilirubin Urine Urobilinogen Ur Leukocyte Esterase Urine Glucose Urine Opiates Screen Ur Barbiturates Screen Ur Phencyclidine Scrn Ur Amphetamines Screen U Benzodiazepines Scrn Urine Cocaine Screen U Cannabinoids Screen 05/20/18 11:51 WBC RBC Hgb Hct MCV MCH MCHC RDW Plt Count MPV Neut % (Auto) Lymph % (Auto) [place] % (Auto) Eos % (Auto) Baso % (Auto) Absolute Neuts (auto) Absolute Lymphs (auto) Absolute Monos (auto) Absolute Eos (auto) Absolute Basos (auto) Absolute Nucleated RBC Neutrophils % Lymphocytes % Monocytes % Eosinophils % Basophils % Nucleated RBC % Abs Neuts (Manual) Abs Lymphs (Manual) Abs Monocytes (Manual) Absolute Eos (Manual) Abs Basophils (Manual) Nucleated RBCs/100 WBC Normal RBC Morphology INR (Anticoag Therapy) Sodium Potassium Chloride Carbon Dioxide Anion Gap BUN Creatinine Est GFR ( Amer) Est GFR (Non-Af Amer) BUN/Creatinine Ratio Glucose POC Glucose (mg/dL) 280 H Lactic Acid Calcium Total Bilirubin AST ALT Alkaline Phosphatase Troponin I Total Protein Albumin Globulin Albumin/Globulin Ratio Urine Color Urine Appearance Urine pH Ur Specific [place] Urine Protein Urine Ketones Urine Blood Urine Nitrate Urine Bilirubin Urine Urobilinogen Ur Leukocyte Esterase Urine Glucose Urine Opiates Screen Ur Barbiturates Screen Ur Phencyclidine Scrn Ur Amphetamines Screen U Benzodiazepines Scrn Urine Cocaine Screen U Cannabinoids Screen - Assessment Assessment: DARRIAN BURKETT is a 57 year old F. Await read of CT; may need liver bx to rule out malignancy; will follow
--- NOTE | 2018-05-20 16:01 | RAD ---
INDICATION: Lung mass, adrenal mass, abnormal liver. COMPARISON: Comparison is made with a prior PET/CT study from October 08, 2017 and a prior abdominal ultrasound from May 20, 2018. TECHNIQUE: A CT scan of the chest, abdomen and pelvis was performed with intravenous and with oral contrast following intravenous injection of 141 ml of Visipaque 320 nonionic contrast. Contiguous axial sections were obtained from the lung apices through the symphysis pubis. Images were reconstructed in the coronal and sagittal planes. FINDINGS: LUNGS: There is mild to moderate centrilobular emphysematous change. There is a pleural-based lesion in the medial left lower lobe measuring 3.4 x 3.5 x 3.4 cm in size suspicious for mass less likely an infiltrate. This is new from the prior PET/CT study. There is mild right lower lobe atelectasis. No pleural effusion is present. MEDIASTINUM: No enlarged mediastinal lymph nodes are seen although there are enlarged left hilar lymph nodes measuring up to 2.1 cm in size. HEART: The heart is within normal limits in size. No pericardial effusion is present. THORACIC AORTA: The thoracic aorta is normal in caliber. There is mild calcific plaque present. LIVER: The liver is enlarged with a mildly nodular contour. There are multiple hypodense lesions present throughout the liver. The largest is located in the right hepatic lobe and measures 6.7 x 6.1 cm in size. These lesions would be suspicious for metastatic disease less likely multicentric hepatocellular cancer. GALLBLADDER: The patient is status post cholecystectomy. BILE DUCTS: No intra or extrahepatic ductal distention is seen. SPLEEN: The spleen is normal in size without significant focal abnormality. PANCREAS: The pancreas is normal in size. No ductal distention or calcifications are seen. ADRENAL GLANDS: The right adrenal gland appears atrophic. The left adrenal gland is enlarged. KIDNEYS: The kidneys are normal in size. No renal calculi or hydronephrosis is seen. No significant focal renal abnormality is seen. AORTA: The aorta is normal in caliber with moderate calcific plaque present. LYMPH NODES: No significantly enlarged lymph nodes are seen. BOWEL: The stomach, small and large bowel appear nondistended. There is mild descending and sigmoid diverticulosis without evidence for diverticulitis. There is a small left inguinal hernia containing fat. PELVIC ORGANS: No bladder wall thickening is seen. The uterus is normal in size. There is calcification in the fundal portion of the uterus likely representing small calcified fibroid. PERITONEUM: No free intraperitoneal air or fluid is seen. BONES: There are fractures of the right posterolateral sixth, eighth and ninth ribs which appear acute to subacute in duration. There are several old left rib fractures. There is a chronic appearing compression fracture of the superior endplate of the L2 vertebral body. IMPRESSION: 1. THERE IS A PLEURAL-BASED LESION PRESENT IN THE MEDIAL LEFT LOWER LOBE MOST CONSISTENT WITH A MASS LESS LIKELY AN INFILTRATE. 2. ENLARGED LEFT HILAR LYMPH NODES. 3. ENLARGED LIVER WITH NODULAR CONTOUR SUGGESTING THE POSSIBILITY OF CIRRHOSIS. IN ADDITION THERE ARE MULTIPLE HYPODENSE HEPATIC LESIONS SUSPICIOUS FOR METASTATIC DISEASE LESS LIKELY MULTICENTRIC HEPATOCELLULAR CANCER. 4. ENLARGED LEFT ADRENAL GLAND. 5. MULTIPLE ACUTE TO SUBACUTE RIGHT RIB FRACTURES.
--- NOTE | 2018-05-20 17:21 | CONS ---
CONSULTATION REPORT: DATE OF CONSULT: 05/20/18 REFERRING PROVIDER: Karin Martinez NP PRIMARY CARE PHYSICIAN: Dr. Rodriguez. REASON FOR CONSULT: Pulmonary mass. HISTORY OF PRESENT ILLNESS: Recent history started approximately 8 weeks ago. She developed acute back pain turning while sitting in a chair. The pain has been very severe, continuous day and night. It focuses in the lower back and goes across both sides radiating to her abdomen. It is worse with moving and she has difficult time sleeping as the pain lasts all night. She has been taking hydrocodone, which has a modest effect. Seen by primary care, but without substantial change in medication. In addition to the back pain, she developed shortness of breath just 1 to 2 days prior to admission. Shortness of breath came on fairly suddenly and she had difficult time with minimal motion. It is the shortness of breath that brought her to the emergency room. She had a heart rate of 160 per verbal report. By the time an EKG was done, she was in sinus rhythm and her rate was under 100. She did have initial blood pressure of 80/30 in the emergency room before returning to 120s when she was in sinus rhythm. Chest x-ray showed vascular congestion. She has edema on her ankles on exam. Blood work was significant for leukocytosis with a white count of 14.5 and a left shift, BNP of 233, lactic acidosis of 3.4 going to 1.4, 24 hours later, and she had elevated liver enzymes including alkaline phosphatase of 319. Because with admission with back pain, she had a CT scan of the thoracic spine. On the CT, she was noted to have a 3.3-cm pulmonary mass posterior peripherally on the left lower lobe. She was also noted to have an increased size of left adrenal gland. She had had a CT scan done in July 2017. That was a low-dose screening scan that did show a small left lower lobe lesion in identical location. At that time, the lesion was 10 x 19 mm and was not clearly mass-like. The CT was followed up with a PET scan in September 2017 where the lesion had disappeared. The left adrenal gland was increased on the CT scan in 2016 as well at 12 x 30 mm. There were no areas of activity, either the lung or the adrenal gland on the PET scan. Because of the elevated liver function tests, she also was sent for an ultrasound of the liver that shows multiple hepatic masses. The CT of the T spine, the ultrasound, the 2012 CT scan, and the prior PET scan were all reviewed by Dr. Hope. The pulmonary mass is highly suspicious for malignancy as are the discrete multifocal liver lesions. Back pain has been a little better since admission and she has been on IV narcotics. She has been quite short of breath with cough productive of green phlegm. She has remained afebrile. Currently treated with ceftriaxone for presumed bronchitis, hydromorphone IV for pain, as well as Roxanol, and she is on Spiriva for COPD. Oncology was consulted for the mass. PAST MEDICAL HISTORY: 1. Chronic DVTs. Left leg 15 years ago and then again 8 years ago, now on chronic warfarin therapy. 2. COPD, 1 pack per day smoking history. 3. Diabetes, type 2, increased sugars on steroids. 4. Hyperlipidemia. 5. Psoriatic arthritis. Followed by Dr. Mccarthy and most recently by Tia Duggan NP. She has been on methotrexate for many years, has not required other therapy. 6. Hypertension. 7. Chronic back pain. Slipped disk x3. 8. Arthritis, status post right ankle surgery twice. PAST SURGICAL HISTORY: 1. Open reduction of a fracture on right ankle, 2006. Reoperation, 2013, with removal of hardware. 2. Cholecystectomy, 1991. 3. Carpal tunnel surgery, 2010 and 2011. MEDICATIONS: 1. Folic acid 1 mg a day. 2. Fexofenadine 180 mg b.i.d. 3. Citalopram 40 a day. 4. Beclomethasone 40 mcg 2 puffs inhaled q.a.m. 5. Otezla 1 tablet b.i.d. 6. Allopurinol 300 mg daily. 7. Albuterol inhaler p.r.n. 8. Alprazolam 0.25 mg b.i.d. p.r.n. 9. Potassium chloride 10 mEq p.o. daily. 10. Pantoprazole 40 mg daily. 11. Methotrexate 15 mg weekly. 12. Metformin 500 b.i.d. 13. Lisinopril 20 mg daily. 14. Hydrocodone/aspirin 10/325 one to two tablets q.4 p.r.n. 15. Hydrochlorothiazide 25 a day. 16. Warfarin 10 mg Sunday, Sunday, Sunday, Sunday, and Sunday and 5 mg Tuesdays and . 17. Spiriva 1 capsule daily. 18. Robitussin. 19. Gabapentin 600 mg at 9 a.m. and noon, 1200 mg at bedtime. FAMILY HISTORY: Mother of ORTHOPEDIC TECHNICIAN bleed and father had lung cancer. SOCIAL HISTORY: Smokes 1 pack per day. No alcohol or drug use. She is and lives with her as well as a 24-year-old son. is a healthcare proxy. 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 Second child is 25 years old. No grandchildren. REVIEW OF SYSTEMS: As discussed above plus she has been fatigued. HEENT: Negative. Lungs: Shortness of breath, cough productive of green sputum. Cardiac: Rapid atrial fibrillation on admission, now controlled, no chest pain. GI: Eating well. Normal bowel movements. : Negative. Musculoskeletal: Severe back pain as noted above, some chronic joint pain. Skin: Negative. Neurologic: History of depression and anxiety. A 14-point review of systems is otherwise negative. PHYSICAL EXAM: BP 134/70, pulse 84 and regular, respirations 20, afebrile, O2 sat 94% on room air. HEENT: Mucosa moist. No lesions. No cervical or supraclavicular lymphadenopathy. Lungs: Decreased breath sounds bilaterally. No wheezes on my exam. No clear crackles. Heart: Regular rate and rhythm. S1 , S2. No murmurs, rubs, or gallops. Abdomen: Obese, nontender, and nondistended. Good bowel sounds. Nodes: No peripheral lymphadenopathy. Extremities: +2 edema bilaterally. Good pulses. Neuro: Alert and oriented x3. Grossly intact. LABORATORY DATA: As noted above. She continues to have leukocytosis with white count of 13.4, hemoglobin 12.6, and platelets are low at 86, 271 on admission. ASSESSMENT AND PLAN: A 57-year-old female, smoker, with history of chronic back pain, atrial fibrillation, and chronic obstructive pulmonary disease. Admitted with exacerbation of back pain, COPD and atrial fibrillation. CT scan of the T-spine showed a pulmonary mass, adrenal lesion and US with multiple hepatic lesions. . Differential diagnosis includes small cell lung cancer given rate of change of disease, non-small cell lung cancer, this could be a nonmalignant process as well. I discussed with the patient today the possibility that she has a new lung cancer and that if diagnosed, it would be metastatic. We did not discuss prognosis or possible therapies at this time. 1. Pulmonary mass and liver lesions. Recommend CT scan of chest, abdomen, and pelvis with p.o. and IV contrast to more fully stage disease. The pulmonary mass is highly suspicious as are the liver lesions, the adrenal lesion is less clear. Will plan ultrasound-guided biopsy of the liver lesions. 2. Anticoagulation. We will reverse her Coumadin with p.o. vitamin K tonight and start her on Lovenox to bridge for the biopsy, then reinitiate Coumadin on discharge. 3. Chronic obstructive pulmonary disease. Still coughing on exam today, therapy per hospitalist. 4. Atrial fibrillation. Rate controlled and pressures are stable. 5. Thrombocytopenia. Potentially medication induced. If drops further, we would consider changing antibiotics. She is not on heparin. 6. Back pain. Unclear if related to the pulmonary mass, metastatic lesion or her chronic back pain. If we confirm a diagnosis of malignancy, MRI spine. I am less concerned about narcotic addiction and we would be happy to manage her pain with long-acting narcotics. 7. Diabetes. Metformin has been on hold, slight rise in her blood sugars during admission. If caner diagnosis will stay off Metformin Management per hospitalist. 8. Anxiety and depression. Continue current medications. 9. Psoriatic arthritis. Now on weekly methotrexate. We will need to hold in the future if we initiate chemotherapy for lung cancer. We would not give while in the hospital as her platelet count is under 100,000. We will continue to follow above studies during this hospitalization. [id number]/[facility] #: [id number] TRACEY
[2018-05-20] MEDS: Gabapentin CAP(*) 400 MG PO SCH (21:07)
[2018-05-21] MEDS: oxyCODONE TAB* 5 MG TAB PO PRN ×4 (00:35→21:00)
[2018-05-21 06:16] LABS: INR 1.31 (0.77-1.02)
[2018-05-21 06:23] LABS: EGFR Non-African American 133.8 (>60)
[2018-05-21 06:42] LABS: ABS Basophils 0 10^3/ul (0-0.2); ABS Eosinophils 0.1 10^3/ul (0-0.6); ABS Monocytes 0.5 10^3/ul (0-0.8); ABS Neutrophils 7.2 10^3/ul (1.5-7.7); ABS Nucleated RBC 0 10^3/ul; Eosinophil % 0.6 % (0-6); Hematocrit 37 % (35-47); Hemoglobin 11.9 g/dl (12.0-16.0); Lymphocyte % 27.6 % (25-47); Mean Corpuscular HGB Conc 32 g/dl (31-36); Mean Corpuscular Hemoglobin 27 pg (27-31); Mean Corpuscular Volume 85 fL (80-97); Mean Platelet Volume 10.1 um3 (7.4-10.4); Nucleated Red Blood Cells % 0.3; Platelet Count 74 10^3/ul (150-450); Red Blood Count 4.38 10^6/ul (4.00-5.40); Red Cell Distribution Width 21 % (10.5-15); White Blood Count 10.8 10^3/ul (3.5-10.8)
--- NOTE | 2018-05-21 06:47 | PN ---
Subjective Date of Service: 05/21/18 Interval History: Ms. Kenyon reports feeling ok this morning though she continues to have low back pain. Her pain is much improved on the current regimen. She reports feeling short of breath after taking off bipap initially but this has resolved. She denies chest pain, nausea, or abdominal pain. Objective Active Medications: Albuterol (Ventolin Hfa Inhaler*) 2 puff INH Q4HR PRN Allopurinol (Zyloprim Tab*) 300 mg PO DAILY MARI Alprazolam (Xanax Tab*) 0.25 mg PO BID PRN Citalopram Hydrobromide (Celexa Tab*) 40 mg PO DAILY [facility]I Dextrose (D50w Syringe 50 Ml*) 12.5 gm IV PUSH .FOR FS < 60 - SS PRN Doxycycline Hyclate (Vibramycin Cap(*)) 100 mg PO BID MARI Folic Acid (Folvite Tab*) 1 mg PO DAILY [facility]I Gabapentin (Neurontin Cap(*)) 600 mg PO 0900,1200 [facility]I Gabapentin (Neurontin Cap(*)) 1,200 mg PO BEDTIME [facility]I Hydrochlorothiazide (Hydrodiuril Tab*) 25 mg PO DAILY [facility]I Hydromorphone HCl (Dilaudid Inj1s*) 0.5 mg IV SLOW PU Q4H PRN Ceftriaxone Sodium 1 gm/ (Sodium Chloride) 50 mls @ 200 mls/hr IVPB Q24H [facility] Insulin Glargine (Lantus(*)) 5 units SUBCUT QAM MARI Insulin Human Lispro (Humalog*) 0 units SUBCUT AC MARI; Protocol Nystatin (Nystatin Top Powder*) 1 applic TOPICAL TID MARI Omeprazole (Prilosec Cap*) 20 mg PO DAILY@0730 [facility]I Oxycodone HCl (Roxycodone Tab*) 10 mg PO Q4H PRN Potassium Chloride (Klor Con Er Tab*) 20 meq PO BID MARI Tiotropium [place] (Spiriva Cap.Inh*) 1 cap INH DAILY [facility] Vital Signs: Temp Pulse Resp BP Pulse Ox 97.5 F 57 20 126/80 100 05/21/18 03:11 05/21/18 03:11 05/21/18 03:11 05/21/18 03:11 05/21/18 03:11 Oxygen Devices in Use Now: Nasal Cannula, BiPAP Appearance: Female sitting up in bed in NAD Eyes: No Scleral Icterus Ears/Nose/Mouth/Throat: Mucous Membranes Moist Neck: Trachea Midline Respiratory: Symmetrical Chest Expansion and Respiratory Effort, Clear to Auscultation Cardiovascular: NL Sounds; No Murmurs; No JVD, - - scant edema to B LEs Abdominal: NL Sounds; No Tenderness; No Distention Skin: No Rash or Ulcers Neurological: Alert and Oriented x 3, NL Muscle Strength and Tone Nutrition: Taking PO's Result Diagrams: 05/21/18 05:25 05/21/18 05:25 Assess/Plan/Problems-Billing Assessment: Ms. 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 - Patient Problems (1) Acute CHF Comment: - Responded well to lasix, no further lasix today. - May be tachycardia related given high HR on arrival. No events noted on telemetry, continue monitoring. - No hx of CHF, echo with intact EF and no wall motion or valvular abnormalities. (2) Lung mass Comment: - New left lower lobe mass noted on CT thoracic spine, as well as mass on left adrenal gland. Radiologist strongly suspicious for lung cancer with metastasis. However, patient did have a negative PET scan of the chest 10/07. She is a [facility] smoker, currently smoke 1 pack per day. Liver US abnormal with concern for metastatic disease. - Plan to continue ceftriaxone and doxycycline for now. - Appreciate Dr. Fischer's consult, plan for CT abd/pelvis, reversal of coumadin and biopsy of liver mass. (3) Elevated LFTs Comment: - Mild elevation in LFTs, unchanged since arrival. No abdominal pain. - Appreciate consultation from Dr. Garces. Liver US shows markedly enlarged and abnormal liver, concerning for metastasis. - Appreciate Dr. Fischer's consult. CT abd pelvis showing multiple lesions. Plan for reversal of coumadin and liver biopsy. (4) Hypokalemia Comment: - Continue repletion (5) Diabetes Comment: - BGs 200 this AM. - Increase lantus to 10 units qAM with lispro SSI coverage for meals. Hold metformin. (6) Hypertension Comment: - SBP 130s. - Continue hctz. Resume lisinopril. (7) Chronic back pain Comment: - Acute worsening of back pain 4 weeks ago after she turned in a chair and heard a "crack." - CT lumbar and thoracic spine show degenerative disk disease and osteoarthritis only. - Continue oxycodone po. D/C dilaudid IV prn, not used in 24 hours. (8) COPD (chronic obstructive pulmonary disease) Comment: - No evidence of acute exacerbation. - Continue nebs prn with spiriva (9) DVT prophylaxis Comment: - Warfarin reversed for liver biopsy, start bridging therapy after procedure - Hx of unprovoked DVTs on lifelong coumadin therapy, appreciate recommendations from hematology for bridging with lovenox and resumption of warfarin therapy. (10) Full code status Comment: Status and Disposition: Inpatient. Anticipate discharge to home when medically stable.
[2018-05-21] MEDS: Tiotropium CAP.INH* CAP.INH/18 MCG (USE ORDER SET !) INH SCH (08:47)
[2018-05-21] MEDS: Potassium Chlor TAB* 20 MEQ TAB.ER PO SCH ×4 (09:32→21:00)
[2018-05-21] MEDS: DOXYcycline CAP(*) 100 MG PO SCH ×2 (09:33→21:00)
[2018-05-21] MEDS: Gabapentin CAP(*) 300 MG PO SCH ×2 (09:33→12:27)
[2018-05-21] MEDS: Omeprazole CAP* 20 MG PO SCH (09:33)
[2018-05-21] MEDS: Lisinopril TAB* 10 MG PO SCH (09:34)
[2018-05-21] MEDS: Folic Acid TAB* 1 MG PO SCH (09:34)
[2018-05-21] MEDS: Allopurinol TAB* 300 MG PO SCH (09:34)
[2018-05-21] MEDS: Hydrochlorothiazide TAB* 25 MG PO SCH (09:34)
[2018-05-21] MEDS: Insulin LISPRO* 1 UNITS UNIT SUBCUT SCH ×3 (09:35→17:55)
[2018-05-21] MEDS: Citalopram TAB* 40 MG PO SCH (09:35)
[2018-05-21] MEDS: Insulin GLARGINE(*) 1 UNITS UNIT SUBCUT SCH (09:36)
[2018-05-21] MEDS: Nystatin TOP POWDER* 15 GM BTL TOPICAL SCH ×3 (09:43→21:05)
[2018-05-21] MEDS ORDERED: Warfarin TAB(*) 5 MG PO SCH (11:24)
--- NOTE | 2018-05-21 12:05 | PN ---
Progress Note - Progress Note Date of Service: 05/21/18 SOAP: Subjective: [Patient offers no new complaints. Plan for US guided liver biopsy today. Communicated results of yesterday's CT to patient. 3.5 cm lung mass with multiple liver lesions. No additional sites of concern noted.] Objective: [ Laboratory Results - last 24 hr 05/20/18 05/20/18 05/21/18 11:51 16:31 05:25 WBC RBC Hgb Hct MCV MCH MCHC RDW Plt Count MPV Neut % (Auto) Lymph % (Auto) Grant % (Auto) Eos % (Auto) Baso % (Auto) Absolute Neuts (auto) Absolute Lymphs (auto) Absolute Monos (auto) Absolute Eos (auto) Absolute Basos (auto) Absolute Nucleated RBC Nucleated RBC % INR (Anticoag Therapy) 1.31 H Sodium Potassium Chloride Carbon Dioxide Anion Gap BUN Creatinine Est GFR ( Amer) Est GFR (Non-Af Amer) BUN/Creatinine Ratio Glucose POC Glucose (mg/dL) 280 H 198 H Calcium 05/21/18 05/21/18 05/21/18 05:25 05:25 08:01 WBC 10.8 RBC 4.38 Hgb 11.9 L Hct 37 MCV 85 MCH 27 MCHC 32 RDW 21 H Plt Count 74 L MPV 10.1 Neut % (Auto) 67.0 Lymph % (Auto) 27.6 Grant % (Auto) 4.7 Eos % (Auto) 0.6 Baso % (Auto) 0.1 Absolute Neuts (auto) 7.2 Absolute Lymphs (auto) 3.0 Absolute Monos (auto) 0.5 Absolute Eos (auto) 0.1 Absolute Basos (auto) 0 Absolute Nucleated RBC 0 Nucleated RBC % 0.3 INR (Anticoag Therapy) Sodium 140 Potassium 3.4 L Chloride 98 L Carbon Dioxide 37 H Anion Gap 5 BUN 18 Creatinine 0.48 L Est GFR ( Amer) 161.9 Est GFR (Non-Af Amer) 133.8 BUN/Creatinine Ratio 37.5 H Glucose 184 H POC Glucose (mg/dL) 241 H Calcium 8.4 L Albuterol (Ventolin Hfa Inhaler*) 2 puff INH Q4HR PRN PRN Reason: SOB/WHEEZING Allopurinol (Zyloprim Tab*) 300 mg PO DAILY MARI Last Admin: 05/21/18 09:34 Dose: 300 mg Alprazolam (Xanax Tab*) 0.25 mg PO BID PRN PRN Reason: ANXIETY Citalopram Hydrobromide (Celexa Tab*) 40 mg PO DAILY [facility] Last Admin: 05/21/18 09:35 Dose: 40 mg Dextrose (D50w Syringe 50 Ml*) 12.5 gm IV PUSH .FOR FS < 60 - SS PRN PRN Reason: FS < 60 Doxycycline Hyclate (Vibramycin Cap(*)) 100 mg PO BID [facility] Last Admin: 05/21/18 09:33 Dose: 100 mg Folic Acid (Folvite Tab*) 1 mg PO DAILY [facility] Last Admin: 05/21/18 09:34 Dose: 1 mg Gabapentin (Neurontin Cap(*)) 600 mg PO 0900,1200 [facility] Last Admin: 05/21/18 09:33 Dose: 600 mg Gabapentin (Neurontin Cap(*)) 1,200 mg PO BEDTIME [facility] Last Admin: 05/20/18 21:07 Dose: 1,200 mg Hydrochlorothiazide (Hydrodiuril Tab*) 25 mg PO DAILY [facility] Last Admin: 05/21/18 09:34 Dose: 25 mg Ceftriaxone Sodium 1 gm/ (Sodium Chloride) 50 mls @ 200 mls/hr IVPB Q24H [facility] Last Admin: 05/20/18 15:30 Dose: 200 mls/hr Insulin Glargine (Lantus(*)) 10 units SUBCUT QAM [facility] Last Admin: 05/21/18 09:36 Dose: 10 units Insulin Human Lispro (Humalog*) 0 units SUBCUT AC [facility]; Protocol Last Admin: 05/21/18 09:35 Dose: 6 units Lisinopril (Prinivil Tab*) 20 mg PO DAILY [facility] Last Admin: 05/21/18 09:34 Dose: 20 mg Nystatin (Nystatin Top Powder*) 1 applic TOPICAL TID [facility] Last Admin: 05/21/18 09:43 Dose: 1 applic Omeprazole (Prilosec Cap*) 20 mg PO DAILY@0730 [facility] Last Admin: 05/21/18 09:33 Dose: 20 mg Oxycodone HCl (Roxycodone Tab*) 10 mg PO Q4H PRN PRN Reason: PAIN Last Admin: 05/21/18 09:35 Dose: 10 mg Potassium Chloride (Klor Con Er Tab*) 20 meq PO BID MARI Last Admin: 05/21/18 09:32 Dose: 20 meq Tiotropium [place] (Spiriva Cap.Inh*) 1 cap INH DAILY [facility] Last Admin: 05/21/18 08:47 Dose: 1 cap Vital Signs: Temp Pulse Resp BP Pulse Ox 97.7 F 86 20 123/54 94 05/21/18 07:46 05/21/18 08:49 05/21/18 09:35 05/21/18 07:46 05/21/18 08:49 Exam: Gen: Well appearing obese female in NAD HEENT: MMM CV: RRR, no m/r/g Resp: few wheezes and rhonchi noted Abd: soft, nonTTP Skin: multiple areas of ecchymosis] Assessment: [57 yo female with a complicated medical history now with a new lung mass and multiple liver lesions.] Plan: [1. Lung and liver lesions - concern that this represents metastatic lung CA - Coumadin reversed with vit K - plan for US guided liver biospy today 2. CHF - management per hospitalist group 3. Chronic back pain - plan for outpatient contrasted MRI of spine to eval for bony lesions 4. Morbid obesity 5. Multiple DVTs - lifelong anticoagulation with Coumadin - reversed for liver biopsy - bridge with Lovenox and resume Coumadin following biopsy procedure 6. COPD 7. DM 8. Psoriatic arthritis Dispo: Oncology will follow up after pathology is available for review. If patient is discharged prior to pathology returning, patient can see Dr Fischer in close follow up.]
[2018-05-21] MEDS ORDERED: fentaNYL* 50 MCG/ML 2 ML VIAL (100 MCG VIAL) ONE (12:52)
--- NOTE | 2018-05-21 15:57 | RAD ---
INDICATION: Multifocal liver lesions. Malignancy is suspected. COMPARISON: CT chest abdomen pelvis dated May 20, 2018 ANESTHESIA: Intravenous fentanyl and lidocaine injected locally. IMAGING FINDINGS AND PROCEDURE: The benefits and risks of procedure explained to the patient and the patient signed informed consent. Multiple images of the liver were obtained and a superficial left lobe lesion identified from previous imaging was located with sonographic imaging. A percutaneous tract was determined leading into the liver lesion in question. Color flow imaging did not show any pulsating arteries in the intended biopsy tract or within the intended liver parenchyma biopsy site. Prebiopsy ultrasound images were saved. A time out was performed before beginning the procedure. The patient was prepped and draped in the usual sterile fashion. The overlying skin, subcutaneous tissue and liver capsule were anesthetized with 1% lidocaine under sonographic guidance. Percutaneously and under sonographic control fine-needle aspiration was performed. Imaging was saved. The needle and syringe were provided to the attending cytopathologist who indicated the sample acquired was adequate for diagnosis. According to the same technique a second fine-needle aspiration was acquired and provided to the attending cytopathologist. The requesting oncologist specifically requested core biopsies of a lesion. Utilizing an 18-gauge [place] needle 3 core biopsies were obtained from this superficial left lobe liver lesion under sonographic guidance. Each core was placed in formalin and after the last biopsy the sample was provided to the attending medical technologist generalist. The post procedure ultrasound demonstrates no evidence of a large hematoma or subcapsular bleed. The biopsy site was dressed with sterile gauze and direct manual pressure was held for 5 minutes. The patient tolerated procedure well without incident. The patient was transferred back to her inpatient room. IMPRESSION: Uncomplicated ultrasound-guided fine-needle aspiration and 18-gauge core biopsy of a superficial left lobe liver lesion as described above.
[2018-05-21] MEDS: cefTRIAXone(*) 1 GM in NS 0.9% 50 ML* 50 ML IVPB SCH (16:40)
[2018-05-21] MEDS: Gabapentin CAP(*) 400 MG PO SCH (21:01)
[2018-05-21] MEDS ORDERED: Enoxaparin(*) 150 MG/ML 1 ML SYRINGE SUBCUT SCH (22:00)
[2018-05-21] MEDS ORDERED: Warfarin TAB(*) 10 MG PO ONE (22:00)
[2018-05-22] MEDS: oxyCODONE TAB* 5 MG TAB PO PRN ×4 (01:13→20:31)
[2018-05-22 06:27] LABS: INR 1.08 (0.77-1.02)
[2018-05-22] MEDS: Tiotropium CAP.INH* CAP.INH/18 MCG (USE ORDER SET !) INH SCH (08:13)
[2018-05-22] MEDS: DOXYcycline CAP(*) 100 MG PO SCH ×2 (09:22→20:31)
[2018-05-22] MEDS: Allopurinol TAB* 300 MG PO SCH (09:22)
[2018-05-22] MEDS: Gabapentin CAP(*) 300 MG PO SCH ×2 (09:22→13:39)
[2018-05-22] MEDS: Hydrochlorothiazide TAB* 25 MG PO SCH (09:22)
[2018-05-22] MEDS: Citalopram TAB* 40 MG PO SCH (09:22)
[2018-05-22] MEDS: Folic Acid TAB* 1 MG PO SCH (09:22)
[2018-05-22] MEDS: Omeprazole CAP* 20 MG PO SCH (09:23)
[2018-05-22] MEDS: Potassium Chlor TAB* 20 MEQ TAB.ER PO SCH ×2 (09:23→20:31)
[2018-05-22] MEDS: Lisinopril TAB* 10 MG PO SCH (09:23)
[2018-05-22] MEDS: Insulin GLARGINE(*) 1 UNITS UNIT SUBCUT SCH (09:24)
[2018-05-22] MEDS: Insulin LISPRO* 1 UNITS UNIT SUBCUT SCH ×3 (09:24→17:33)
[2018-05-22] MEDS: Nystatin TOP POWDER* 15 GM BTL TOPICAL SCH ×3 (09:25→20:33)
[2018-05-22 09:43] LABS: EGFR Non-African American 156.1 (>60)
[2018-05-22] MEDS: Albuterol HFA INHALER* 8 gm MDI INH PRN (10:59)
[2018-05-22] MEDS ORDERED: Enoxaparin(*) 150 MG/ML 1 ML SYRINGE SUBCUT SCH (12:00)
[2018-05-22 12:33] LABS: Urine Appearance Cloudy; Urine Blood 2+ (Negative); Urine Color Amber; Urine Ketones Negative (Negative); Urine Protein Negative (Negative); Urine Red Blood Cell 3+(>10/hpf) (Absent); Urine Urobilinogen Positive (Negative); Urine White Blood Cell 1+(6-10/hpf) (Absent)
[2018-05-22] MEDS: Enoxaparin(*) 150 MG/ML 1 ML SYRINGE SUBCUT SCH (13:39)
[2018-05-22] MEDS: cefTRIAXone(*) 1 GM in NS 0.9% 50 ML* 50 ML IVPB SCH (15:19)
--- NOTE | 2018-05-22 15:22 | PN ---
Subjective Date of Service: 05/22/18 Interval History: Patient continues to have unchanged LBP. Patient has been having improvement in her LE edema. Patient denies CP, SOB, N/V, abdominal pain, dizziness, dysuria, urgency or a feeling of incomplete emptying, or other pain. Patient understands the possibilities of her diagnosis and her questions were answered to her satisfaction. Family History: Unchanged from Admission Social History: Unchanged from Admission Past Medical History: Unchanged from Admission Objective Active Medications: Albuterol (Ventolin Hfa Inhaler*) 2 puff INH Q4HR PRN PRN Reason: SOB/WHEEZING Last Admin: 05/22/18 10:59 Dose: 2 puff Allopurinol (Zyloprim Tab*) 300 mg PO DAILY [facility] Last Admin: 05/22/18 09:22 Dose: 300 mg Alprazolam (Xanax Tab*) 0.25 mg PO BID PRN PRN Reason: ANXIETY Citalopram Hydrobromide (Celexa Tab*) 40 mg PO DAILY [facility] Last Admin: 05/22/18 09:22 Dose: 40 mg Dextrose (D50w Syringe 50 Ml*) 12.5 gm IV PUSH .FOR FS < 60 - SS PRN PRN Reason: FS < 60 Doxycycline Hyclate (Vibramycin Cap(*)) 100 mg PO BID [facility] Last Admin: 05/22/18 09:22 Dose: 100 mg Enoxaparin Sodium (Lovenox(*)) 135 mg SUBCUT Q12H [facility] Last Admin: 05/22/18 13:39 Dose: 135 mg Folic Acid (Folvite Tab*) 1 mg PO DAILY [facility] Last Admin: 05/22/18 09:22 Dose: 1 mg Gabapentin (Neurontin Cap(*)) 600 mg PO 0900,1200 [facility] Last Admin: 05/22/18 13:39 Dose: 600 mg Gabapentin (Neurontin Cap(*)) 1,200 mg PO BEDTIME [facility] Last Admin: 05/21/18 21:01 Dose: 1,200 mg Hydrochlorothiazide (Hydrodiuril Tab*) 25 mg PO DAILY [facility] Last Admin: 05/22/18 09:22 Dose: 25 mg Ceftriaxone Sodium 1 gm/ (Sodium Chloride) 50 mls @ 200 mls/hr IVPB Q24H [facility] Last Admin: 05/21/18 16:40 Dose: 200 mls/hr Insulin Glargine (Lantus(*)) 20 units SUBCUT QAM [facility] Insulin Human Lispro (Humalog*) 0 units SUBCUT AC [facility]; Protocol Last Admin: 05/22/18 13:40 Dose: 9 units Lisinopril (Prinivil Tab*) 20 mg PO DAILY [facility] Last Admin: 05/22/18 09:23 Dose: 20 mg Nystatin (Nystatin Top Powder*) 1 applic TOPICAL TID [facility] Last Admin: 05/22/18 13:40 Dose: Not Given Omeprazole (Prilosec Cap*) 20 mg PO DAILY@0730 [facility] Last Admin: 05/22/18 09:23 Dose: 20 mg Oxycodone HCl (Roxycodone Tab*) 10 mg PO Q4H PRN PRN Reason: PAIN Last Admin: 05/22/18 09:21 Dose: 10 mg Pharmacy Profile Note (Coumadin Daily Reminder*) 1 note FOLLOW UP 1700 [facility] Potassium Chloride (Klor Con Er Tab*) 20 meq PO BID [facility] Last Admin: 05/22/18 09:23 Dose: 20 meq Tiotropium [place] (Spiriva Cap.Inh*) 1 cap INH DAILY [facility] Last Admin: 05/22/18 08:13 Dose: 1 cap Vital Signs - 8 hr 05/22/18 05/22/18 05/22/18 07:39 08:00 09:21 Temperature 97.7 F Pulse Rate 87 Respiratory 18 20 20 Rate Blood Pressure 121/85 (mmHg) O2 Sat by Pulse 98 Oximetry 05/22/18 05/22/18 05/22/18 09:22 11:16 11:30 Temperature 98.2 F Pulse Rate 72 Respiratory 20 20 18 Rate Blood Pressure 123/65 (mmHg) O2 Sat by Pulse 97 Oximetry 05/22/18 13:39 Temperature Pulse Rate Respiratory 20 Rate Blood Pressure (mmHg) O2 Sat by Pulse Oximetry Oxygen Devices in Use Now: Nasal Cannula Appearance: Patient is a 57yo female who appears stated age and is sitting in the bed in [facility]. Eyes: No Scleral Icterus, PERRLA Ears/Nose/Mouth/Throat: NL Teeth, Lips, Gums, Clear Oropharnyx, Mucous Membranes Moist Neck: NL Appearance and Movements; NL JVP, Trachea Midline Respiratory: Symmetrical Chest Expansion and Respiratory Effort, Clear to Auscultation Cardiovascular: NL Sounds; No Murmurs; No JVD, RRR, - - 1+ edema in LLE Abdominal: NL Sounds; No Tenderness; No Distention, No Hepatosplenomegaly Lymphatic: No Cervical Adenopathy Extremities: No Clubbing, Cyanosis Skin: No Rash or Ulcers, No Nodules or Sclerosis Neurological: Alert and Oriented x 3, NL Sensation, NL Muscle Strength and Tone , - - CN II-XII intact. Result Diagrams: 05/23/18 06:06 05/23/18 06:06 Microbiology and Other Data: Microbiology 05/19/18 10:01 Aerobic Blood Culture - Preliminary Blood Venous No Growth Day 1 Anaerobic Blood Culture - Preliminary No Growth Day 1 05/19/18 09:23 Aerobic Blood Culture - Preliminary Blood Venous No Growth Day 1 Anaerobic Blood Culture - Preliminary No Growth Day 1 Assess/Plan/Problems-Billing Assessment: Ms. 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 Patient's respiratory status is improving and her liver biopsy showed metastatic SSLC. Patient is being bridged with lovenox until INR is therapeutic. - Patient Problems (1) Lung mass Current Visit: Yes Status: Acute Code(s): R91.8 - OTHER NONSPECIFIC ABNORMAL FINDING OF LUNG FIELD SNOMED Code(s): 960243049 Comment: - New left lower lobe mass noted on CT thoracic spine, as well as mass on left adrenal gland. Radiologist strongly suspicious for lung cancer with metastasis. However, patient did have a negative PET scan of the chest 10/07. 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 Liver US abnormal with concern for metastatic disease. - Plan to continue ceftriaxone and doxycycline for now. - Appreciate Dr. Fischer's consult - Biopsy showed SSLC, awaiting oncology recommendations. (2) Pyuria Current Visit: Yes Status: Acute Code(s): N39.0 - URINARY TRACT INFECTION, SITE NOT SPECIFIED SNOMED Code(s): 8591784 Comment: - Pyuria with signs of dehydration - UA shows leukocyte esterase - Continue ceftriaxone and await culture. (3) Acute CHF Current Visit: Yes Status: Acute Code(s): I50.9 - HEART FAILURE, UNSPECIFIED SNOMED Code(s): 89019308 Comment: - Responded well to lasix, no further lasix today - May be tachycardia related given high HR on arrival. No events noted on telemetry, continue monitoring. - No hx of CHF, echo with intact EF and no wall motion or valvular abnormalities. - Will possibly need outpatient event monitor. (4) COPD (chronic obstructive pulmonary disease) Current Visit: Yes Status: Acute Code(s): J44.9 - CHRONIC OBSTRUCTIVE PULMONARY DISEASE, UNSPECIFIED SNOMED Code(s): 41119966 Comment: - No evidence of acute exacerbation. - Continue nebs prn with spiriva (5) Chronic back pain Current Visit: Yes Status: Acute Code(s): M54.9 - DORSALGIA, UNSPECIFIED; G89.29 - OTHER CHRONIC PAIN SNOMED Code(s): 655357698 Comment: - Acute worsening of back pain 4 weeks ago after she turned in a chair and heard a "crack." - CT lumbar and thoracic spine show degenerative disk disease and osteoarthritis only. - Continue oxycodone po. - Non-emergent lumbar MRI to assess for metastatic lesions - Right sided rib fractures also likely contributing. (6) Diabetes Current Visit: Yes Status: Acute Code(s): E11.9 - TYPE 2 DIABETES MELLITUS WITHOUT COMPLICATIONS SNOMED Code(s): 49629024 Comment: - BGs 200 this AM. - Increase lantus to 20 units qAM with lispro SSI coverage for meals. (7) Elevated LFTs Current Visit: Yes Status: Acute Code(s): R94.5 - ABNORMAL RESULTS OF LIVER FUNCTION STUDIES SNOMED Code(s): 382520737 Comment: - Mild elevation in LFTs, unchanged since arrival. - Likely due to metastatic liver lesions. (8) Hypertension Current Visit: Yes Status: Acute Code(s): I10 - ESSENTIAL (PRIMARY) HYPERTENSION SNOMED Code(s): 86722481 Comment: - Normotensive - Continue hctz, lisinopril. (9) DVT prophylaxis Current Visit: Yes Status: Acute Code(s): ASF1783 - SNOMED Code(s): 947840830 Comment: - Warfarin reversed for liver biopsy, Bridging started - History of unprovoked DVTs on lifelong coumadin therapy, appreciate recommendations from hematology for bridging with lovenox and resumption of warfarin therapy. (10) Full code status Current Visit: Yes Status: Acute Code(s): Z78.9 - OTHER SPECIFIED HEALTH STATUS SNOMED Code(s): 919636310 Comment: Status and Disposition: Inpatient. Anticipate discharge to home when medically stable.
[2018-05-22] MEDS ORDERED: Warfarin TAB(*) 10 MG PO ONE (17:00)
[2018-05-22] MEDS: Gabapentin CAP(*) 400 MG PO SCH (20:31)
[2018-05-23] MEDS: oxyCODONE TAB* 5 MG TAB PO PRN ×6 (00:22→20:20)
[2018-05-23] MEDS: Enoxaparin(*) 150 MG/ML 1 ML SYRINGE SUBCUT SCH ×2 (00:22→13:22)
[2018-05-23 06:33] LABS: Hematocrit 35 % (35-47); Hemoglobin 11.2 g/dl (12.0-16.0); Mean Corpuscular HGB Conc 32 g/dl (31-36); Mean Corpuscular Hemoglobin 28 pg (27-31); Mean Corpuscular Volume 85 fL (80-97); Mean Platelet Volume 9.6 um3 (7.4-10.4); Platelet Count 58 10^3/ul (150-450); Red Cell Distribution Width 21 % (10.5-15); White Blood Count 10.1 10^3/ul (3.5-10.8)
[2018-05-23 06:35] LABS: INR 1.09 (0.77-1.02)
[2018-05-23 06:51] LABS: EGFR Non-African American 144.1 (>60)
[2018-05-23 06:53] LABS: ABS Basophils 0 10^3/ul (0-0.2); ABS Neutrophils 6.6 10^3/ul (1.5-7.7); Monocytes % 2 % (0-7)
[2018-05-23] MEDS ORDERED: Potassium Chloride LIQUID* 20 MEQ PACKET PO ONE (07:00)
[2018-05-23] MEDS: Tiotropium CAP.INH* CAP.INH/18 MCG (USE ORDER SET !) INH SCH (07:59)
[2018-05-23] MEDS: Potassium Chlor TAB* 20 MEQ TAB.ER PO SCH ×2 (08:07→20:21)
[2018-05-23] MEDS: Folic Acid TAB* 1 MG PO SCH (08:07)
[2018-05-23] MEDS: Citalopram TAB* 40 MG PO SCH (08:07)
[2018-05-23] MEDS: Allopurinol TAB* 300 MG PO SCH (08:07)
[2018-05-23] MEDS: Omeprazole CAP* 20 MG PO SCH (08:07)
[2018-05-23] MEDS: Gabapentin CAP(*) 300 MG PO SCH ×2 (08:07→12:39)
[2018-05-23] MEDS: Hydrochlorothiazide TAB* 25 MG PO SCH (08:07)
[2018-05-23] MEDS: DOXYcycline CAP(*) 100 MG PO SCH (08:07)
[2018-05-23] MEDS: Lisinopril TAB* 10 MG PO SCH (08:07)
[2018-05-23] MEDS: Insulin GLARGINE(*) 1 UNITS UNIT SUBCUT SCH (08:08)
[2018-05-23] MEDS: Insulin LISPRO* 1 UNITS UNIT SUBCUT SCH ×3 (08:08→17:39)
[2018-05-23] MEDS: Nystatin TOP POWDER* 15 GM BTL TOPICAL SCH ×3 (08:11→20:28)
--- NOTE | 2018-05-23 08:40 | PN ---
Progress Note - Progress Note Date of Service: 05/23/18 SOAP: Subjective: still w significant back pain that she does NOT feel is adequately controlled. having BMs. breathing better. Objective: Vital Signs Temp Pulse Resp BP Pulse Ox 98.1 F 78 16 124/63 94 05/23/18 07:15 05/23/18 07:59 05/23/18 08:07 05/23/18 07:15 05/23/18 07:59 sitting in chair, dyspneic after ambulating perr eomi op moist CTA bl, distant s1 s2 nl obese NT +BS 1 LE edema bl A+O x 3, wide based unsteady gait limited by pain Laboratory Results - last 24 hr 05/22/18 05/22/18 05/22/18 05:50 11:02 11:50 WBC RBC Hgb Hct MCV MCH MCHC RDW Plt Count MPV Neut % (Auto) Lymph % (Auto) [place] % (Auto) Eos % (Auto) Baso % (Auto) Absolute Neuts (auto) Absolute Lymphs (auto) Absolute Monos (auto) Absolute Eos (auto) Absolute Basos (auto) Absolute Nucleated RBC Immature Gran % Neutrophils % Band Neutrophils % Lymphocytes % Reactive Lymphs % Monocytes % Eosinophils % Basophils % Metamyelocytes % Myelocytes % Nucleated RBC % Abs Neuts (Manual) Abs Lymphs (Manual) Abs Monocytes (Manual) Absolute Eos (Manual) Abs Basophils (Manual) Normal RBC Morphology Polychromasia Anisocytosis Elliptocytes INR (Anticoag Therapy) Sodium 140 Potassium 3.9 Chloride 98 L Carbon Dioxide 37 H Anion Gap 5 BUN 17 Creatinine 0.42 L Est GFR ( Amer) 188.8 Est GFR (Non-Af Amer) 156.1 BUN/Creatinine Ratio 40.5 H Glucose 189 H POC Glucose (mg/dL) 280 H Calcium 8.4 L Magnesium Total Bilirubin AST ALT Alkaline Phosphatase Total Protein Albumin Globulin Albumin/Globulin Ratio Urine Color [place] Urine Appearance Cloudy Urine pH 6.0 Ur Specific [place] 1.020 Urine Protein Negative Urine Ketones Negative Urine Blood 2+ A Urine Nitrate Negative Urine Bilirubin Negative Urine Urobilinogen Positive A Ur Leukocyte Esterase 3+ A Urine WBC (Auto) 1+(6-10/hpf) A Urine RBC (Auto) 3+(>10/hpf) A Ur Squamous Epith Cells Present A Ur Transition Epith Cell Present A Urine Bacteria Absent Urine Yeast Present A Urine Glucose 2+(150 mg/dl) A 05/22/18 05/23/18 05/23/18 17:06 06:06 06:06 WBC 10.1 RBC 4.10 Hgb 11.2 L Hct 35 MCV 85 MCH 28 MCHC 32 RDW 21 H Plt Count 58 L MPV 9.6 Neut % (Auto) Not Reportable Lymph % (Auto) Not Reportable [place]icks[place] % (Auto) Not Reportable Eos % (Auto) Not Reportable Baso % (Auto) Not Reportable Absolute Neuts (auto) 6.6 Absolute Lymphs (auto) Not Reportable Absolute Monos (auto) Not Reportable Absolute Eos (auto) Not Reportable Absolute Basos (auto) Not Reportable Absolute Nucleated RBC Not Reportable Immature Gran % 7 Neutrophils % 59 Band Neutrophils % 5 Lymphocytes % 31 Reactive Lymphs % 1 Monocytes % 2 Eosinophils % 0 Basophils % 0 Metamyelocytes % 1 Myelocytes % 1 Nucleated RBC % Not Reportable Abs Neuts (Manual) 6.0 Abs Lymphs (Manual) 3.1 Abs Monocytes (Manual) 0.2 Absolute Eos (Manual) 0 Abs Basophils (Manual) 0 Normal RBC Morphology Not Reportable Polychromasia 1+ Anisocytosis 1+ Elliptocytes 1+ INR (Anticoag Therapy) 1.09 H Sodium Potassium Chloride Carbon Dioxide Anion Gap BUN Creatinine Est GFR ( Amer) Est GFR (Non-Af Amer) BUN/Creatinine Ratio Glucose POC Glucose (mg/dL) 188 H Calcium Magnesium Total Bilirubin AST ALT Alkaline Phosphatase Total Protein Albumin Globulin Albumin/Globulin Ratio Urine Color Urine Appearance Urine pH Ur Specific [place] Urine Protein Urine Ketones Urine Blood Urine Nitrate Urine Bilirubin Urine Urobilinogen Ur Leukocyte Esterase Urine WBC (Auto) Urine RBC (Auto) Ur Squamous Epith Cells Ur Transition Epith Cell Urine Bacteria Urine Yeast Urine Glucose 05/23/18 05/23/18 06:06 07:46 WBC RBC Hgb Hct MCV MCH MCHC RDW Plt Count MPV Neut % (Auto) Lymph % (Auto) [place] % (Auto) Eos % (Auto) Baso % (Auto) Absolute Neuts (auto) Absolute Lymphs (auto) Absolute Monos (auto) Absolute Eos (auto) Absolute Basos (auto) Absolute Nucleated RBC Immature Gran % Neutrophils % Band Neutrophils % Lymphocytes % Reactive Lymphs % Monocytes % Eosinophils % Basophils % Metamyelocytes % Myelocytes % Nucleated RBC % Abs Neuts (Manual) Abs Lymphs (Manual) Abs Monocytes (Manual) Absolute Eos (Manual) Abs Basophils (Manual) Normal RBC Morphology Polychromasia Anisocytosis Elliptocytes INR (Anticoag Therapy) Sodium 138 Potassium 3.2 L Chloride 97 L Carbon Dioxide 36 H Anion Gap 5 BUN 18 Creatinine 0.45 L Est GFR ( Amer) 174.4 Est GFR (Non-Af Amer) 144.1 BUN/Creatinine Ratio 40.0 H Glucose 216 H POC Glucose (mg/dL) 191 H Calcium 8.1 L Magnesium 1.9 Total Bilirubin 1.90 H AST 63 H ALT 116 H Alkaline Phosphatase 273 H Total Protein 5.0 L Albumin 3.0 L Globulin 2.0 Albumin/Globulin Ratio 1.5 Urine Color Urine Appearance Urine pH Ur Specific [place] Urine Protein Urine Ketones Urine Blood Urine Nitrate Urine Bilirubin Urine Urobilinogen Ur Leukocyte Esterase Urine WBC (Auto) Urine RBC (Auto) Ur Squamous Epith Cells Ur Transition Epith Cell Urine Bacteria Urine Yeast Urine Glucose Albuterol (Ventolin Hfa Inhaler*) 2 puff INH Q4HR PRN PRN Reason: SOB/WHEEZING Last Admin: 05/22/18 10:59 Dose: 2 puff Allopurinol (Zyloprim Tab*) 300 mg PO DAILY [facility] Last Admin: 05/23/18 08:07 Dose: 300 mg Alprazolam (Xanax Tab*) 0.25 mg PO BID PRN PRN Reason: ANXIETY Citalopram Hydrobromide (Celexa Tab*) 40 mg PO DAILY [facility] Last Admin: 05/23/18 08:07 Dose: 40 mg Dextrose (D50w Syringe 50 Ml*) 12.5 gm IV PUSH .FOR FS < 60 - SS PRN PRN Reason: FS < 60 Doxycycline Hyclate (Vibramycin Cap(*)) 100 mg PO BID [facility] Last Admin: 05/23/18 08:07 Dose: 100 mg Folic Acid (Folvite Tab*) 1 mg PO DAILY [facility] Last Admin: 05/23/18 08:07 Dose: 1 mg Gabapentin (Neurontin Cap(*)) 600 mg PO 0900,1200 [facility] Last Admin: 05/23/18 08:07 Dose: 600 mg Gabapentin (Neurontin Cap(*)) 1,200 mg PO BEDTIME [facility] Last Admin: 05/22/18 20:31 Dose: 1,200 mg Hydrochlorothiazide (Hydrodiuril Tab*) 25 mg PO DAILY [facility] Last Admin: 05/23/18 08:07 Dose: 25 mg Ceftriaxone Sodium 1 gm/ (Sodium Chloride) 50 mls @ 200 mls/hr IVPB Q24H [facility] Last Admin: 05/22/18 15:19 Dose: 200 mls/hr Insulin Glargine (Lantus(*)) 20 units SUBCUT QAM [facility] Last Admin: 05/23/18 08:08 Dose: 20 units Insulin Human Lispro (Humalog*) 0 units SUBCUT AC [facility]; Protocol Last Admin: 05/23/18 08:08 Dose: 3 units Lisinopril (Prinivil Tab*) 20 mg PO DAILY [facility] Last Admin: 05/23/18 08:07 Dose: 20 mg Morphine Sulfate (Ms Contin(*)) 15 mg PO Q12H [facility] Nystatin (Nystatin Top Powder*) 1 applic TOPICAL TID [facility] Last Admin: 05/23/18 08:11 Dose: Not Given Omeprazole (Prilosec Cap*) 20 mg PO DAILY@0730 [facility] Last Admin: 05/23/18 08:07 Dose: 20 mg Oxycodone HCl (Roxycodone Tab*) 10 mg PO Q4H PRN PRN Reason: PAIN Last Admin: 05/23/18 04:39 Dose: 10 mg Pharmacy Profile Note (Coumadin Daily Reminder*) 1 note FOLLOW UP 1700 [facility] Last Admin: 05/22/18 16:44 Dose: Not Given Potassium Chloride (Klor Con Er Tab*) 20 meq PO BID [facility] Last Admin: 05/23/18 08:07 Dose: 20 meq Tiotropium [place] (Spiriva Cap.Inh*) 1 cap INH DAILY [facility] Last Admin: 05/23/18 07:59 Dose: 1 cap Assessment: 57 yo F we multiple medical problems and newly diagnosed extensive stage small cell lung cancer. Her liver enzymes are going up and her platelets are falling, which may make us more pressed to treat sooner rather than later. I will discuss with Dr. Fischer. I did review the rationale for and side effects of carbo/etoposide with Mari at length. She will have formal chemotherapy teaching today. In terms of her pain control, I have added a long acting narcotic. We will check an MRI of her L/S spine and brain today as well. She will remain off of her coumadin given the falling platelets, and we will likely need to hold her lovenox at some point in the near future. She will stay off of her metformin as well, and is currently on Lantus and lispro. She will need teaching on this. I will defer management of her ongoing COPD and CHF to the primary team.
[2018-05-23] MEDS: Morphine TAB Extended Release (*) 15 MG TAB.ER PO SCH ×2 (08:52→20:21)
[2018-05-23] MEDS ORDERED: Gadoteridol* (CONTRAST) 279.3 MG/ML 10 ML IV ONE (12:07)
[2018-05-23] MEDS ORDERED: Gadoteridol* (CONTRAST) 279.3 MG/ML 10 ML IV SCH (13:00)
[2018-05-23] MEDS ORDERED: Albuterol/Ipratropium NEB.SOL* Albuterol 2.5 MG/Ipratropium 0.5 MG 3 ML INH PRN (13:03)
--- NOTE | 2018-05-23 13:34 | RAD ---
HISTORY: small cell lung ca COMPARISONS: None TECHNIQUE: The following sequences were obtained of the head: Sagittal T1-weighted images, axial T2-weighted images, axial FLAIR images, axial susceptibility weighted images, axial T1-weighted images. Additionally, axial diffusion-weighted images were obtained with calculated apparent diffusion coefficients. Additionally, sagittal, coronal, and axial T1-weighted images were obtained after contrast enhancement with a gadolinium-based intravenous contrast agent. FINDINGS: HEMORRHAGE/INFARCT: There is no hemorrhage or acute infarct. MASSES/SHIFT: There is no mass or shift. EXTRA-AXIAL SPACES/MENINGES: There are no extra-axial fluid collections. SULCI AND VENTRICLES: The sulci and ventricles are normal in size and position for the patient's stated age. CEREBRUM: There are no focal parenchymal abnormalities. BRAINSTEM: There are no focal parenchymal abnormalities. CEREBELLUM: There are no focal parenchymal abnormalities. The cerebellar tonsils are normal in size and position. SELLA: The sella is normal. PINEAL: The pineal region is clear. CP ANGLE/TEMPORAL BONES: The labyrinthine structures are grossly normal. VESSELS: Normal flow-voids are noted within the visualized vertebral vasculature. DIFFUSION ABNORMALITIES: There are no diffusion abnormalities. PARANASAL SINUSES/MASTOIDS: There is mucosal thickening of the sphenoid sinus. There is large right mastoid effusion. There is a small left mastoid effusion. ORBITS: The orbits are unremarkable. BONES AND SOFT TISSUE: No bone or soft tissue abnormalities are noted. OTHER: There is no abnormal enhancement. IMPRESSION: 1. THERE ARE MULTIPLE FOCI OF ELEVATED T2/FLAIR SIGNAL WITHIN THE PERIVENTRICULAR AND SUBCORTICAL WHITE MATTER. WHILE THESE FINDINGS ARE NONSPECIFIC, THEY CAN BE SEEN IN ASSOCIATION WITH MIGRAINE HEADACHE, THE SEQUELA OF PREVIOUS INFECTION OR INFLAMMATION, AND CHRONIC SMALL VESSEL ISCHEMIA. DEMYELINATING DISEASE IS ALSO WITHIN THE DIFFERENTIAL, BUT IS CONSIDERED LESS LIKELY IN THE ABSENCE OF THE APPROPRIATE CLINICAL PRESENTATION. 2. BILATERAL, RIGHT GREATER THAN LEFT, MASTOID EFFUSIONS. 3. NO ABNORMAL ENHANCEMENT, VASOGENIC EDEMA, OR SPACE-OCCUPYING LESION TO SUGGEST METASTATIC DISEASE TO THE BRAIN.
--- NOTE | 2018-05-23 13:40 | RAD ---
HISTORY: small cell lung ca and back pain COMPARISONS: CT dated May 19, 2018 TECHNIQUE: The following sequences were obtained of the lumbar spine: Sagittal and axial T1- and T2-weighted images, coronal T2-weighted images, and sagittal STIR images. Additionally, axial and sagittal T1 weighted images were obtained after contrast enhancement with a gadolinium-based intravenous contrast agent.. FINDINGS: The study is limited by patient motion artifact. SPINAL CORD, CONUS, AND CAUDA EQUINA: The visualized spinal cord, conus, and cauda equina are normal in caliber, position, and signal intensity. ALIGNMENT: The alignment is normal. VERTEBRAL BODIES: There is multilevel anterolateral marginal osteophyte formation. There are Modic type II reactive endplate changes at L2-L3 and L4-L5. There is an enhancing lesion within the left T12 vertebral body along the superior endplate best seen on sagittal image 12 measuring 1.2 cm in size. There is no appreciable epidural extension of tumor on the sagittal images. JOINTS: There is diffuse facet osteoarthritis. MUSCULATURE: There is moderate fatty infiltration INTERVERTEBRAL DISCS: There is diffuse loss of intervertebral disc height and T2 signal throughout the spine. AXIAL IMAGES: L1-L2: There is marginal osteophyte formation at the neural foramina bilaterally. There is mild bilateral neuroforaminal narrowing. There is mild narrowing of the central canal. L2-L3: There is broad-based disc bulge with ligamentous and facet hypertrophy. There is marginal osteophyte formation at the neural foramina bilaterally. There is severe bilateral neuroforaminal narrowing. There is severe narrowing of the central canal. L3-L4: There is broad-based disc bulge with ligamentous and facet hypertrophy. There is marginal osteophyte formation at the neural foramina bilaterally. There is severe bilateral neuroforaminal narrowing. There is severe narrowing of the central canal. L4-L5: There is broad-based disc bulge with ligamentous and facet hypertrophy. There is marginal osteophyte formation at the neural foramina bilaterally. There is severe bilateral neuroforaminal narrowing. There is severe narrowing of the central canal. L5-S1: There is bilateral facet hypertrophy. There is marginal osteophyte formation at the neural foramina bilaterally. There is severe bilateral neuroforaminal narrowing. There is moderate narrowing of the central canal. SOFT TISSUES: The visualized soft tissues of the abdomen are unremarkable. OTHER: None. IMPRESSION: 1. THERE IS AN ENHANCING LESION WITHIN THE T12 VERTEBRAL BODY ALONG THE SUPERIOR ENDPLATE OF THE LEFT OF MIDLINE CONCERNING FOR METASTATIC DISEASE GIVEN THE HISTORY OF SMALL CELL LUNG CANCER. THERE IS NO APPRECIABLE EPIDURAL EXTENSION OF TUMOR. 2. DEGENERATIVE DISC DISEASE AND OSTEOARTHRITIS. 3. THERE IS SEVERE NARROWING OF THE CENTRAL CANAL AT L2-L3, L3-L4, AND L4-L5 WITH MODERATE NARROWING AT L5-S1 AND MILD NARROWING AT L1-L2. 4. THERE IS MULTILEVEL NEUROFORAMINAL NARROWING DESCRIBED ABOVE.
[2018-05-23] MEDS ORDERED: oxyCODONE TAB* 5 MG TAB ONE (16:07)
--- NOTE | 2018-05-23 17:22 | PN ---
Subjective Date of Service: 05/23/18 Interval History: Patient states her pain is slightly better controlled with long acting morphine. Patient denies bowel or bladder dysfunction. Denies CP, SOB, feels like she is getting weaker. Patient denies F/C, N/V, abdominal pain, diarrhea, dysuria, dizziness, headache, changes in vision, or other pain. Patient is coping well with recent grave diagnosis. Family History: Unchanged from Admission Social History: Unchanged from Admission Past Medical History: Unchanged from Admission Objective Active Medications: Albuterol (Ventolin Hfa Inhaler*) 2 puff INH Q4HR PRN PRN Reason: SOB/WHEEZING Last Admin: 05/22/18 10:59 Dose: 2 puff Albuterol/Ipratropium (Duoneb (Albuterol 2.5 Mg/Ipratropium 0.5 Mg)) 1 neb INH Q4H PRN PRN Reason: SOB/WHEEZING Allopurinol (Zyloprim Tab*) 300 mg PO DAILY [facility] Last Admin: 05/23/18 08:07 Dose: 300 mg Alprazolam (Xanax Tab*) 0.25 mg PO BID PRN PRN Reason: ANXIETY Citalopram Hydrobromide (Celexa Tab*) 40 mg PO DAILY [facility] Last Admin: 05/23/18 08:07 Dose: 40 mg Dextrose (D50w Syringe 50 Ml*) 12.5 gm IV PUSH .FOR FS < 60 - SS PRN PRN Reason: FS < 60 Enoxaparin Sodium (Lovenox(*)) 135 mg SUBCUT Q12H [facility] Last Admin: 05/23/18 13:22 Dose: 135 mg Folic Acid (Folvite Tab*) 1 mg PO DAILY [facility] Last Admin: 05/23/18 08:07 Dose: 1 mg Gabapentin (Neurontin Cap(*)) 600 mg PO 0900,1200 [facility] Last Admin: 05/23/18 12:39 Dose: 600 mg Gabapentin (Neurontin Cap(*)) 1,200 mg PO BEDTIME [facility] Last Admin: 05/22/18 20:31 Dose: 1,200 mg Gadoteridol (Prohance* (Contrast)) 20 ml IV ONCE [facility] Stop: 05/25/18 12:06 Hydrochlorothiazide (Hydrodiuril Tab*) 25 mg PO DAILY [facility] Last Admin: 05/23/18 08:07 Dose: 25 mg Insulin Glargine (Lantus(*)) 20 units SUBCUT QAM [facility] Last Admin: 05/23/18 08:08 Dose: 20 units Insulin Human Lispro (Humalog*) 0 units SUBCUT AC [facility]; Protocol Last Admin: 05/23/18 12:44 Dose: 6 units Lisinopril (Prinivil Tab*) 20 mg PO DAILY [facility] Last Admin: 05/23/18 08:07 Dose: 20 mg Morphine Sulfate (Ms Contin(*)) 15 mg PO Q12H [facility] Last Admin: 05/23/18 08:52 Dose: 15 mg Nystatin (Nystatin Top Powder*) 1 applic TOPICAL TID [facility] Last Admin: 05/23/18 15:11 Dose: Not Given Omeprazole (Prilosec Cap*) 20 mg PO DAILY@0730 [facility] Last Admin: 05/23/18 08:07 Dose: 20 mg Oxycodone HCl (Roxycodone Tab*) 10 mg PO Q3H PRN PRN Reason: PAIN Last Admin: 05/23/18 16:10 Dose: 10 mg Potassium Chloride (Klor Con Er Tab*) 20 meq PO BID [facility] Last Admin: 05/23/18 08:07 Dose: 20 meq Tiotropium [place] (Spiriva Cap.Inh*) 1 cap INH DAILY [facility] Last Admin: 05/23/18 07:59 Dose: 1 cap Vital Signs - 8 hr 05/23/18 05/23/18 05/23/18 11:54 11:55 12:39 Temperature Pulse Rate Respiratory 16 16 18 Rate Blood Pressure (mmHg) O2 Sat by Pulse Oximetry 05/23/18 05/23/18 05/23/18 13:47 14:05 15:12 Temperature 98.1 F Pulse Rate 74 79 Respiratory 16 Rate Blood Pressure 124/61 (mmHg) O2 Sat by Pulse 87 88 Oximetry 05/23/18 05/23/18 15:13 16:10 Temperature Pulse Rate Respiratory 16 18 Rate Blood Pressure (mmHg) O2 Sat by Pulse Oximetry Oxygen Devices in Use Now: Nasal Cannula Appearance: Patient is a 57yo female who appears older than stated age and is sitting in the bed in [facility]. Eyes: No Scleral Icterus, PERRLA Ears/Nose/Mouth/Throat: NL Teeth, Lips, Gums, Clear Oropharnyx, Mucous Membranes Moist Neck: NL Appearance and Movements; NL JVP Respiratory: Symmetrical Chest Expansion and Respiratory Effort, - - Slight wheezes throughout. Cardiovascular: NL Sounds; No Murmurs; No JVD, RRR, - - 1+ edema, stable from previous exam. Abdominal: NL Sounds; No Tenderness; No Distention, No Hepatosplenomegaly Lymphatic: No Cervical Adenopathy Extremities: No Edema, No Clubbing, Cyanosis Skin: No Rash or Ulcers, No Nodules or Sclerosis Neurological: Alert and Oriented x 3, NL Sensation, NL Muscle Strength and Tone , - - CN II-XII intact. Result Diagrams: 05/23/18 06:06 05/23/18 06:06 Microbiology and Other Data: Microbiology 05/19/18 10:01 Aerobic Blood Culture - Preliminary Blood Venous No Growth Day 1 Anaerobic Blood Culture - Preliminary No Growth Day 1 05/19/18 09:23 Aerobic Blood Culture - Preliminary Blood Venous No Growth Day 1 Anaerobic Blood Culture - Preliminary No Growth Day 1 Assess/Plan/Problems-Billing Assessment: Ms. 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 Patient's respiratory status is improving and her liver biopsy showed metastatic SSLC. Patient is being bridged with lovenox until INR is therapeutic. - Patient Problems (1) Lung mass Current Visit: Yes Status: Acute Code(s): R91.8 - OTHER NONSPECIFIC ABNORMAL FINDING OF LUNG FIELD SNOMED Code(s): 596998320 Comment: - New left lower lobe mass noted on CT thoracic spine, as well as mass on left adrenal gland. Radiologist strongly suspicious for lung cancer with metastasis. - Stop antibiotics without evidence of pneumonia. - Appreciate Dr. Fischer's consult - Biopsy showed SSLC, plan to begin chemotherapy tomorrow. (2) Thrombocytopenia Current Visit: Yes Status: Acute Code(s): D69.6 - THROMBOCYTOPENIA, UNSPECIFIED SNOMED Code(s): 050301890 Comment: - Significant decrease in platelets since admission, most recently 58. - Likely due to liver disease and not HIT - Appreciate Hematology/Oncology input - Continue anticoagulation until less than 50K - Discontinue Warfarin. (3) Pyuria Current Visit: Yes Status: Acute Code(s): N39.0 - URINARY TRACT INFECTION, SITE NOT SPECIFIED SNOMED Code(s): 3949654 Comment: - Pyuria with signs of dehydration - No growth on UA, stop antibiotics. (4) Acute CHF Current Visit: Yes Status: Acute Code(s): I50.9 - HEART FAILURE, UNSPECIFIED SNOMED Code(s): 08985898 Comment: - Responded well to lasix, no further lasix today - May be tachycardia related given high HR on arrival. No events noted on telemetry, continue monitoring. - No hx of CHF, echo with intact EF and no wall motion or valvular abnormalities. - Will possibly need outpatient event monitor. (5) COPD (chronic obstructive pulmonary disease) Current Visit: Yes Status: Acute Code(s): J44.9 - CHRONIC OBSTRUCTIVE PULMONARY DISEASE, UNSPECIFIED SNOMED Code(s): 68154296 Comment: - No evidence of acute exacerbation. - Continue nebs prn with spiriva (6) Chronic back pain Current Visit: Yes Status: Acute Code(s): M54.9 - DORSALGIA, UNSPECIFIED; G89.29 - OTHER CHRONIC PAIN SNOMED Code(s): 407597335 Comment: - Acute worsening of back pain 4 weeks ago after she turned in a chair and heard a "crack." - CT lumbar and thoracic spine show degenerative disk disease and osteoarthritis only. - Continue oxycodone po and long acting morphine - MRI spine shows lesion in T12 as well as severe degenerative disc disease - Right sided rib fractures also likely contributing. (7) Diabetes Current Visit: Yes Status: Acute Code(s): E11.9 - TYPE 2 DIABETES MELLITUS WITHOUT COMPLICATIONS SNOMED Code(s): 36527060 Comment: - BGs 200 this AM. - Increase lantus to 20 units qAM with lispro SSI coverage for meals. (8) Elevated LFTs Current Visit: Yes Status: Acute Code(s): R94.5 - ABNORMAL RESULTS OF LIVER FUNCTION STUDIES SNOMED Code(s): 813274201 Comment: - Worsening - Likely due to metastatic liver lesions. (9) Hypertension Current Visit: Yes Status: Acute Code(s): I10 - ESSENTIAL (PRIMARY) HYPERTENSION SNOMED Code(s): 40937345 Comment: - Normotensive - Continue hctz, lisinopril. (10) DVT prophylaxis Current Visit: Yes Status: Acute Code(s): PHQ8325 - SNOMED Code(s): 861629807 Comment: - Lovenox full dose (11) Full code status Current Visit: Yes Status: Acute Code(s): Z78.9 - OTHER SPECIFIED HEALTH STATUS SNOMED Code(s): 660384552 Comment: Status and Disposition: Inpatient. Anticipate discharge to home when medically stable.
[2018-05-23] MEDS: Gabapentin CAP(*) 400 MG PO SCH (20:20)
[2018-05-24] MEDS: Enoxaparin(*) 150 MG/ML 1 ML SYRINGE SUBCUT SCH (02:09)
[2018-05-24] MEDS: oxyCODONE TAB* 5 MG TAB PO PRN ×5 (02:13→21:15)
[2018-05-24 06:25] LABS: EGFR Non-African American 147.9 (>60)
[2018-05-24 06:36] LABS: ABS Basophils 0 10^3/ul (0-0.2); ABS Eosinophils 0 10^3/ul (0-0.6); ABS Lymphocytes 2.6 10^3/ul (1.0-4.8); ABS Monocytes 0.8 10^3/ul (0-0.8); ABS Nucleated RBC 0.1 10^3/ul; Eosinophil % 0.4 % (0-6); Hematocrit 35 % (35-47); Hemoglobin 11.3 g/dl (12.0-16.0); Lymphocyte % 24.9 % (25-47); Mean Corpuscular HGB Conc 32 g/dl (31-36); Mean Corpuscular Hemoglobin 27 pg (27-31); Mean Corpuscular Volume 86 fL (80-97); Mean Platelet Volume 9.3 um3 (7.4-10.4); Nucleated Red Blood Cells % 0.5; Platelet Count 57 10^3/ul (150-450); Red Blood Count 4.12 10^6/ul (4.00-5.40); Red Cell Distribution Width 22 % (10.5-15); White Blood Count 10.5 10^3/ul (3.5-10.8)
[2018-05-24] MEDS: Tiotropium CAP.INH* CAP.INH/18 MCG (USE ORDER SET !) INH SCH (07:43)
[2018-05-24] MEDS: Albuterol HFA INHALER* 8 gm MDI INH PRN (07:43)
[2018-05-24] MEDS: Insulin LISPRO* 1 UNITS UNIT SUBCUT SCH ×3 (08:04→17:29)
[2018-05-24] MEDS: Insulin GLARGINE(*) 1 UNITS UNIT SUBCUT SCH (08:05)
[2018-05-24] MEDS: Lisinopril TAB* 10 MG PO SCH (08:05)
[2018-05-24] MEDS: Gabapentin CAP(*) 300 MG PO SCH ×2 (08:06→12:17)
[2018-05-24] MEDS: Hydrochlorothiazide TAB* 25 MG PO SCH (08:07)
[2018-05-24] MEDS: Morphine TAB Extended Release (*) 15 MG TAB.ER PO SCH ×2 (08:07→21:09)
[2018-05-24] MEDS: Citalopram TAB* 40 MG PO SCH (08:08)
[2018-05-24] MEDS: Allopurinol TAB* 300 MG PO SCH (08:08)
[2018-05-24] MEDS: Omeprazole CAP* 20 MG PO SCH (08:08)
[2018-05-24] MEDS: Potassium Chlor TAB* 20 MEQ TAB.ER PO SCH ×2 (08:09→21:09)
[2018-05-24] MEDS: Folic Acid TAB* 1 MG PO SCH (08:09)
[2018-05-24] MEDS: Nystatin TOP POWDER* 15 GM BTL TOPICAL SCH ×3 (08:57→21:21)
[2018-05-24] MEDS ORDERED: Prochlorperazine TAB* 10 MG PO PRN (10:01)
--- NOTE | 2018-05-24 10:01 | PN ---
Progress Note - Progress Note Date of Service: 05/24/18 SOAP: Subjective: []Breathing is better. Not eating much. Back pain still sever but pain medication is helping. No fevers. Albuterol (Ventolin Hfa Inhaler*) 2 puff INH Q4HR PRN PRN Reason: SOB/WHEEZING Last Admin: 05/24/18 07:43 Dose: 2 puff Albuterol/Ipratropium (Duoneb (Albuterol 2.5 Mg/Ipratropium 0.5 Mg)) 1 neb INH Q4H PRN PRN Reason: SOB/WHEEZING Allopurinol (Zyloprim Tab*) 300 mg PO DAILY [facility] Last Admin: 05/24/18 08:08 Dose: 300 mg Alprazolam (Xanax Tab*) 0.25 mg PO BID PRN PRN Reason: ANXIETY Citalopram Hydrobromide (Celexa Tab*) 40 mg PO DAILY [facility] Last Admin: 05/24/18 08:08 Dose: 40 mg Dextrose (D50w Syringe 50 Ml*) 12.5 gm IV PUSH .FOR FS < 60 - SS PRN PRN Reason: FS < 60 Enoxaparin Sodium (Lovenox(*)) 100 mg SUBCUT Q12H [facility] Folic Acid (Folvite Tab*) 1 mg PO DAILY [facility] Last Admin: 05/24/18 08:09 Dose: 1 mg Gabapentin (Neurontin Cap(*)) 600 mg PO 0900,1200 [facility] Last Admin: 05/24/18 08:06 Dose: 600 mg Gabapentin (Neurontin Cap(*)) 1,200 mg PO BEDTIME [facility] Last Admin: 05/23/18 20:20 Dose: 1,200 mg Gadoteridol (Prohance* (Contrast)) 20 ml IV ONCE [facility] Stop: 05/25/18 12:06 Hydrochlorothiazide (Hydrodiuril Tab*) 25 mg PO DAILY [facility] Last Admin: 05/24/18 08:07 Dose: 25 mg Insulin Glargine (Lantus(*)) 20 units SUBCUT QAM [facility] Last Admin: 05/24/18 08:05 Dose: 20 units Insulin Human Lispro (Humalog*) 0 units SUBCUT AC [facility]; Protocol Last Admin: 05/24/18 08:04 Dose: 3 units Lisinopril (Prinivil Tab*) 20 mg PO DAILY [facility] Last Admin: 05/24/18 08:05 Dose: 20 mg Morphine Sulfate (Ms Contin(*)) 15 mg PO Q12H [facility] Last Admin: 05/24/18 08:07 Dose: 15 mg Nystatin (Nystatin Top Powder*) 1 applic TOPICAL TID [facility] Last Admin: 05/24/18 08:57 Dose: Not Given Omeprazole (Prilosec Cap*) 20 mg PO DAILY@0730 [facility] Last Admin: 05/24/18 08:08 Dose: 20 mg Oxycodone HCl (Roxycodone Tab*) 10 mg PO Q3H PRN PRN Reason: PAIN Last Admin: 05/24/18 06:12 Dose: 10 mg Potassium Chloride (Klor Con Er Tab*) 20 meq PO BID [facility] Last Admin: 05/24/18 08:09 Dose: 20 meq Tiotropium [place] (Spiriva Cap.Inh*) 1 cap INH DAILY [facility] Last Admin: 05/24/18 07:43 Dose: 1 cap Objective: [] Vital Signs Temp Pulse Resp BP Pulse Ox 97.8 F 76 18 149/74 98 05/24/18 07:16 05/24/18 07:51 05/24/18 08:07 05/24/18 07:16 05/24/18 07:51 HEENT sclera icterus. OM moist. No wheezing, decreased BS but improved RRR S1S2 +BS obese, non specific exam, non tender Etxt +1 edema Neuro AAOx3 MRI brain- no cancer MRI LS spine + T12 lesion, no CC T bili 3.1 Plts 57 Assessment: []57 year old with new diagnosis SSLC with rapidly expanding disease, progressive thrombocytopenia and liver dysfunction. Discussed diagnosis with patient, and son. Cancer is often responsive to chemotherapy and will shrink. Not curable and comes back, can be treated again but less effective. Will of cancer. Prognosis variable, average around a year. Possible radiation to spine lesion if pain persistent. Discussed SE of chemotherapy including low counts, infection, hair loss, nausea, constipation. Plan: []1. Carboplatin and Etoposide. - Carbo AUC 6, max 900 mg d1 - Etoposide at 50 mg/m2 d 1-3 - Premeds:: Aloxi, Emend, Dex - Compazine, Zofran PRN 2. 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 Hope to see improvement. - Transfuse < 10,000 or bleeding 3. Lovenox. Continue for now, hold for plts < 50,000 - We may be overdosing: Check Xa inhibitor level 1400 and will reduce to 100 mg sq bid for tonight. 4. Liver dysfunction. - Celexa to 20 mg per day 5. Low Potassium. Stop HCTZ 6. DM. On ISS, will see higher BS with steroids. 7. Counts, Mg and CMP daily.
[2018-05-24] MEDS ORDERED: Ondansetron ODT TAB* 4 MG SL PRN (10:02)
[2018-05-24] MEDS ORDERED: Palonosetron* 0.25 MG in PREMIX* 0 ML IVPB ONE (11:00)
[2018-05-24] MEDS ORDERED: Fosaprepitant IV* 150 MG in NS 0.9% 250 ML* 145 ML IVPB ONE (11:00)
[2018-05-24] MEDS ORDERED: Dexamethasone IV* 8 MG in PREMIX* 0 ML IVPB ONE (11:00)
[2018-05-24] MEDS ORDERED: NS 0.9% IVPB ONE ×2 (11:30→12:00)
[2018-05-24] MEDS ORDERED: ETOPOSIDE IVPB ONE (11:30)
[2018-05-24] MEDS ORDERED: CARBOPLATIN IVPB ONE (12:00)
[2018-05-24] MEDS: Gabapentin CAP(*) 400 MG PO SCH (21:08)
[2018-05-24] MEDS: Enoxaparin(*) 100 MG/ML SYR SUBCUT SCH (21:16)
[2018-05-25 06:21] LABS: Hematocrit 35 % (35-47); Hemoglobin 11.1 g/dl (12.0-16.0); Mean Corpuscular HGB Conc 32 g/dl (31-36); Mean Corpuscular Hemoglobin 27 pg (27-31); Mean Corpuscular Volume 86 fL (80-97); Mean Platelet Volume 8.9 um3 (7.4-10.4); Platelet Count 54 10^3/ul (150-450); Red Blood Count 4.05 10^6/ul (4.00-5.40); Red Cell Distribution Width 22 % (10.5-15); White Blood Count 10.3 10^3/ul (3.5-10.8)
[2018-05-25 06:35] LABS: EGFR Non-African American 144.1 (>60)
[2018-05-25] MEDS: oxyCODONE TAB* 5 MG TAB PO PRN ×3 (06:42→21:21)
[2018-05-25 06:49] LABS: ABS Basophils 0 10^3/ul (0-0.2); ABS Eosinophils 0 10^3/ul (0-0.6); ABS Lymphocytes 2.7 10^3/ul (1.0-4.8); ABS Monocytes 0.7 10^3/ul (0-0.8); ABS Neutrophils 6.9 10^3/ul (1.5-7.7); ABS Nucleated RBC 0 10^3/ul
[2018-05-25 06:53] LABS: ABS Basophils 0 10^3/ul (0-0.2); ABS Neutrophils 5.9 10^3/ul (1.5-7.7); Monocytes % 6 % (0-7); Tear Drop Cells 1+
[2018-05-25] MEDS: Tiotropium CAP.INH* CAP.INH/18 MCG (USE ORDER SET !) INH SCH (08:11)
[2018-05-25] MEDS: Albuterol HFA INHALER* 8 gm MDI INH PRN (08:11)
[2018-05-25] MEDS ORDERED: Senna TAB PO PRN (08:18)
--- NOTE | 2018-05-25 08:26 | PN ---
Progress Note - Progress Note Date of Service: 05/25/18 SOAP: Subjective: stools harder. pain better than but still 4-6 and needing to take meds frequently. breathing a little harder this am. Objective: Vital Signs Temp Pulse Resp BP Pulse Ox 98.2 F 86 20 123/61 91 05/25/18 07:47 05/25/18 08:15 05/25/18 07:47 05/25/18 07:47 05/25/18 03:37 sitting up mildly dyspneic perr eomi op moist exp wheeze throughout s1 s2nl obese Nt +bs 1+LEedema nonfocal neurological exam Albuterol (Ventolin Hfa Inhaler*) 2 puff INH Q4HR PRN PRN Reason: SOB/WHEEZING Last Admin: 05/25/18 08:11 Dose: 2 puff Albuterol/Ipratropium (Duoneb (Albuterol 2.5 Mg/Ipratropium 0.5 Mg)) 1 neb INH Q4H PRN PRN Reason: SOB/WHEEZING Allopurinol (Zyloprim Tab*) 300 mg PO DAILY [facility] Last Admin: 05/24/18 08:08 Dose: 300 mg Alprazolam (Xanax Tab*) 0.25 mg PO BID PRN PRN Reason: ANXIETY Citalopram Hydrobromide (Celexa Tab*) 20 mg PO DAILY [facility] Dexamethasone Sodium Phosphate (Decadron Iv*) 8 mg IV SLOW PU DAILY@0900 [facility] Stop: 05/26/18 09:01 Dextrose (D50w Syringe 50 Ml*) 12.5 gm IV PUSH .FOR FS < 60 - SS PRN PRN Reason: FS < 60 Docusate Sodium (Colace Cap*) 100 mg PO BID PRN PRN Reason: CONSTIPATION Enoxaparin Sodium (Lovenox(*)) 100 mg SUBCUT Q12H [facility] Last Admin: 05/24/18 21:16 Dose: 100 mg Folic Acid (Folvite Tab*) 1 mg PO DAILY [facility] Last Admin: 05/24/18 08:09 Dose: 1 mg Gabapentin (Neurontin Cap(*)) 600 mg PO 0900,1200 [facility] Last Admin: 05/24/18 12:17 Dose: 600 mg Gabapentin (Neurontin Cap(*)) 1,200 mg PO BEDTIME [facility] Last Admin: 05/24/18 21:08 Dose: 1,200 mg Gadoteridol (Prohance* (Contrast)) 20 ml IV ONCE [facility] Stop: 05/25/18 12:06 Etoposide 120 mg/ Sodium (Chloride) 506 mls @ 1,012 mls/hr IVPB DAILY@1000 [facility] Stop: 05/26/18 10:29 Potassium Chloride (Potassium Chloride 20 Meq/100 Ml Ivpremix*) 20 meq in 100 mls @ 50 mls/hr IV Q2H [facility] Stop: 05/25/18 12:59 Insulin Glargine (Lantus(*)) 20 units SUBCUT QAM [facility] Last Admin: 05/24/18 08:05 Dose: 20 units Insulin Human Lispro (Humalog*) 0 units SUBCUT AC [facility]; Protocol Last Admin: 05/24/18 17:29 Dose: 6 units Lisinopril (Prinivil Tab*) 20 mg PO DAILY [facility] Last Admin: 05/24/18 08:05 Dose: 20 mg Morphine Sulfate (Ms Contin(*)) 30 mg PO Q12H [facility] Nystatin (Nystatin Top Powder*) 1 applic TOPICAL TID [facility] Last Admin: 05/24/18 21:21 Dose: Not Given Omeprazole (Prilosec Cap*) 20 mg PO DAILY@0730 [facility] Last Admin: 05/24/18 08:08 Dose: 20 mg Ondansetron HCl (Zofran Odt Tab*) 8 mg SL Q8H PRN PRN Reason: NAUSEA/VOMITING Oxycodone HCl (Roxycodone Tab*) 10 mg PO Q3H PRN PRN Reason: PAIN Last Admin: 05/25/18 06:42 Dose: 10 mg Potassium Chloride (Klor Con Er Tab*) 40 meq PO BID [facility] Prochlorperazine (Compazine Tab*) 10 mg PO Q6HR PRN PRN Reason: NAUSEA Senna (Senokot Tab*) 2 tab PO BEDTIME PRN PRN Reason: CONSTIPATION Tiotropium [place] (Spiriva Cap.Inh*) 1 cap INH DAILY [facility] Last Admin: 05/25/18 08:11 Dose: 1 cap Assessment: 57 yo F we multiple medical problems and newly diagnosed extensive stage small cell lung cancer. -cont carbo/dose adjusted etoposide, cycle 1 day 2 today -watch liver enzymes, though will Pain: broken ribs and spinal lesion, in addition to chronic back pain. -increase long acting to 30 mg po bid -may add in RT but need to get liver disease controlled first constipation: narcotic induced add colace and senna transaminitis: related to liver infiltration with cancer DM: cont lantus and lispro no metformin h/o DVTs: holding coumadin given thrombocytopenia -hold lovenox if plts <50 COPD/CHF: will need O2 on discharge cont alexandro-i seems stable off of lasix hypokalemia: will replete more aggressively today given presumed arrhythmia on admission leading to CHF exacerbation full code
[2018-05-25] MEDS ORDERED: Potassium Chlor TAB* 20 MEQ TAB.ER PO SCH (09:00)
[2018-05-25] MEDS: Dexamethasone IV* 4 MG/ML 1 ML (4 MG) IV SLOW PU SCH (09:34)
[2018-05-25] MEDS: NS 0.9% IVPB SCH (09:37)
[2018-05-25] MEDS: ETOPOSIDE IVPB SCH (09:37)
[2018-05-25] MEDS: Insulin LISPRO* 1 UNITS UNIT SUBCUT SCH ×3 (09:39→17:32)
[2018-05-25] MEDS: Insulin GLARGINE(*) 1 UNITS UNIT SUBCUT SCH (09:39)
[2018-05-25] MEDS: Nystatin TOP POWDER* 15 GM BTL TOPICAL SCH ×3 (09:40→21:23)
[2018-05-25] MEDS: Enoxaparin(*) 100 MG/ML SYR SUBCUT SCH ×2 (09:40→21:23)
[2018-05-25] MEDS: Omeprazole CAP* 20 MG PO SCH (09:42)
[2018-05-25] MEDS: Folic Acid TAB* 1 MG PO SCH (09:47)
[2018-05-25] MEDS: Morphine TAB Extended Release (*) 15 MG TAB.ER PO SCH ×2 (09:47→21:21)
[2018-05-25] MEDS: Docusate CAP* 100 MG PO PRN ×2 (09:48→21:20)
[2018-05-25] MEDS: Citalopram TAB* 40 MG PO SCH (09:48)
[2018-05-25] MEDS: Lisinopril TAB* 10 MG PO SCH (09:48)
[2018-05-25] MEDS: Allopurinol TAB* 300 MG PO SCH (09:49)
[2018-05-25] MEDS: Gabapentin CAP(*) 300 MG PO SCH ×2 (09:49→12:58)
[2018-05-25] MEDS: KCL 20 MEQ/100 ML IVPREMIX* 20 MEQ/100 ML BAG IV SCH ×2 (12:00→13:51)
[2018-05-25] MEDS: Diltiazem TAB* 30 MG PO SCH ×2 (12:59→20:17)
[2018-05-25] MEDS: Potassium Chloride LIQUID* 20 MEQ PACKET PO SCH (21:18)
[2018-05-25] MEDS: Gabapentin CAP(*) 400 MG PO SCH (21:20)
[2018-05-26] MEDS: Diltiazem TAB* 30 MG PO SCH ×4 (01:54→18:45)
[2018-05-26] MEDS: oxyCODONE TAB* 5 MG TAB PO PRN ×2 (01:54→18:50)
[2018-05-26 05:19] LABS: Hematocrit 34 % (35-47); Hemoglobin 10.7 g/dl (12.0-16.0); Mean Corpuscular HGB Conc 32 g/dl (31-36); Mean Corpuscular Hemoglobin 27 pg (27-31); Mean Corpuscular Volume 86 fL (80-97); Platelet Count 57 10^3/ul (150-450); Red Blood Count 3.92 10^6/ul (4.00-5.40); Red Cell Distribution Width 22 % (10.5-15); White Blood Count 9.5 10^3/ul (3.5-10.8)
[2018-05-26 05:30] LABS: EGFR Non-African American 151.9 (>60)
[2018-05-26 05:43] LABS: ABS Basophils 0 10^3/ul (0-0.2); ABS Neutrophils 5.9 10^3/ul (1.5-7.7); ABS Neutrophils 6.6 10^3/ul (1.5-7.7); Monocytes % 3 % (0-7)
[2018-05-26] MEDS: Tiotropium CAP.INH* CAP.INH/18 MCG (USE ORDER SET !) INH SCH (07:38)
[2018-05-26] MEDS: Albuterol HFA INHALER* 8 gm MDI INH PRN (07:38)
[2018-05-26] MEDS: Insulin LISPRO* 1 UNITS UNIT SUBCUT SCH ×3 (08:24→17:04)
[2018-05-26] MEDS: Insulin GLARGINE(*) 1 UNITS UNIT SUBCUT SCH (08:24)
[2018-05-26] MEDS: Dexamethasone IV* 4 MG/ML 1 ML (4 MG) IV SLOW PU SCH (08:26)
[2018-05-26] MEDS: Gabapentin CAP(*) 300 MG PO SCH ×2 (08:27→12:15)
[2018-05-26] MEDS: Lisinopril TAB* 10 MG PO SCH (08:28)
[2018-05-26] MEDS: Allopurinol TAB* 300 MG PO SCH (08:29)
[2018-05-26] MEDS: Morphine TAB Extended Release (*) 15 MG TAB.ER PO SCH ×2 (08:29→21:18)
[2018-05-26] MEDS: Citalopram TAB* 40 MG PO SCH (08:31)
[2018-05-26] MEDS: Potassium Chloride LIQUID* 20 MEQ PACKET PO SCH ×2 (08:31→21:16)
[2018-05-26] MEDS: Folic Acid TAB* 1 MG PO SCH (08:31)
[2018-05-26] MEDS: Omeprazole CAP* 20 MG PO SCH (08:31)
[2018-05-26] MEDS: Polyethylene Glycol 3350* 17 GM PACKET PO SCH (10:57)
[2018-05-26] MEDS: Nystatin TOP POWDER* 15 GM BTL TOPICAL SCH ×4 (10:58→23:24)
[2018-05-26] MEDS: Docusate CAP* 100 MG PO PRN (10:58)
[2018-05-26] MEDS: Enoxaparin(*) 100 MG/ML SYR SUBCUT SCH ×2 (10:58→21:18)
--- NOTE | 2018-05-26 11:04 | PN ---
Subjective Date of Service: 05/26/18 Interval History: Patient has stable pain in lower back which has improved from admission. Patient has been having cough without sputum production. Patient has mild persistent SOB which has not gotten worse. Patient was unaware yesterday of HR in the 150s with no dizziness, chest discomfort, increased SOB, or palpitations. Patient has not noticed any significant adverse reaction from chemotherapy. Patient feels somewhat constipated and has not had a BM in 4 days. Patient denies F/C, N/V, abdominal pain, dysuria, or other pain. Family History: Unchanged from Admission Social History: Unchanged from Admission Past Medical History: Unchanged from Admission Objective Active Medications: Albuterol (Ventolin Hfa Inhaler*) 2 puff INH Q4HR PRN PRN Reason: SOB/WHEEZING Last Admin: 05/26/18 07:38 Dose: 2 puff Albuterol/Ipratropium (Duoneb (Albuterol 2.5 Mg/Ipratropium 0.5 Mg)) 1 neb INH Q4H PRN PRN Reason: SOB/WHEEZING Allopurinol (Zyloprim Tab*) 300 mg PO DAILY [facility] Last Admin: 05/26/18 08:29 Dose: 300 mg Alprazolam (Xanax Tab*) 0.25 mg PO BID PRN PRN Reason: ANXIETY Citalopram Hydrobromide (Celexa Tab*) 20 mg PO DAILY [facility] Last Admin: 05/26/18 08:31 Dose: 20 mg Dextrose (D50w Syringe 50 Ml*) 12.5 gm IV PUSH .FOR FS < 60 - SS PRN PRN Reason: FS < 60 Diltiazem HCl (Cardizem Tab*) 30 mg PO Q6H [facility] Last Admin: 05/26/18 08:30 Dose: 30 mg Docusate Sodium (Colace Cap*) 100 mg PO BID PRN PRN Reason: CONSTIPATION Last Admin: 05/26/18 10:58 Dose: 100 mg Enoxaparin Sodium (Lovenox(*)) 100 mg SUBCUT Q12H [facility] Last Admin: 05/26/18 10:58 Dose: 100 mg Folic Acid (Folvite Tab*) 1 mg PO DAILY [facility] Last Admin: 05/26/18 08:31 Dose: 1 mg Gabapentin (Neurontin Cap(*)) 600 mg PO 0900,1200 [facility] Last Admin: 05/26/18 08:27 Dose: 600 mg Gabapentin (Neurontin Cap(*)) 1,200 mg PO BEDTIME [facility] Last Admin: 05/25/18 21:20 Dose: 1,200 mg Guaifenesin (Mucinex*) 1,200 mg PO BID [facility] Insulin Glargine (Lantus(*)) 20 units SUBCUT QAM [facility] Last Admin: 05/26/18 08:24 Dose: 20 units Insulin Human Lispro (Humalog*) 0 units SUBCUT AC [facility]; Protocol Last Admin: 05/26/18 08:24 Dose: 3 units Lisinopril (Prinivil Tab*) 20 mg PO DAILY [facility] Last Admin: 05/26/18 08:28 Dose: 20 mg Morphine Sulfate (Ms Contin(*)) 30 mg PO Q12H [facility] Last Admin: 05/26/18 08:29 Dose: 30 mg Nystatin (Nystatin Top Powder*) 1 applic TOPICAL TID [facility] Last Admin: 05/26/18 10:58 Dose: 1 applic Omeprazole (Prilosec Cap*) 20 mg PO DAILY@0730 [facility] Last Admin: 05/26/18 08:31 Dose: 20 mg Ondansetron HCl (Zofran Odt Tab*) 8 mg SL Q8H PRN PRN Reason: NAUSEA/VOMITING Oxycodone HCl (Roxycodone Tab*) 10 mg PO Q3H PRN PRN Reason: PAIN Last Admin: 05/26/18 01:54 Dose: 10 mg Polyethylene Glycol/Electrolytes (Miralax*) 17 gm PO DAILY [facility] Last Admin: 05/26/18 10:57 Dose: 17 gm Potassium Chloride (Klor-Con Liquid*) 40 meq PO BID [facility] Last Admin: 05/26/18 08:31 Dose: 40 meq Prochlorperazine (Compazine Tab*) 10 mg PO Q6HR PRN PRN Reason: NAUSEA Senna (Senokot Tab*) 2 tab PO BEDTIME PRN PRN Reason: CONSTIPATION Last Admin: 05/25/18 21:20 Dose: 2 tab Tiotropium [place] (Spiriva Cap.Inh*) 1 cap INH DAILY [facility] Last Admin: 05/26/18 07:38 Dose: 1 cap Vital Signs - 8 hr 05/26/18 05/26/18 05/26/18 03:29 04:00 07:38 Temperature 97.1 F Pulse Rate 83 76 Respiratory 20 18 Rate Blood Pressure 141/56 (mmHg) O2 Sat by Pulse 94 Oximetry 05/26/18 05/26/18 08:27 08:29 Temperature Pulse Rate Respiratory 16 18 Rate Blood Pressure (mmHg) O2 Sat by Pulse Oximetry Oxygen Devices in Use Now: Nasal Cannula Appearance: Patient is a 57yo female who appears older than stated age and is sitting in the bed in NAD. Eyes: No Scleral Icterus, PERRLA Ears/Nose/Mouth/Throat: NL Teeth, Lips, Gums, Clear Oropharnyx, Mucous Membranes Moist Neck: NL Appearance and Movements; NL JVP, Trachea Midline Respiratory: Symmetrical Chest Expansion and Respiratory Effort, - - Rhonchi Cardiovascular: NL Sounds; No Murmurs; No JVD, RRR, No Edema Abdominal: NL Sounds; No Tenderness; No Distention, No Hepatosplenomegaly Lymphatic: No Cervical Adenopathy Extremities: No Edema, No Clubbing, Cyanosis Skin: No Nodules or Sclerosis, - - Ecchymosis on arms Neurological: Alert and Oriented x 3, NL Sensation, NL Muscle Strength and Tone , - - CN II-XII intact Result Diagrams: 05/26/18 05:05 05/26/18 05:05 Microbiology and Other Data: Microbiology 05/19/18 10:01 Aerobic Blood Culture - Preliminary Blood Venous No Growth Day 1 Anaerobic Blood Culture - Preliminary No Growth Day 1 05/19/18 09:23 Aerobic Blood Culture - Preliminary Blood Venous No Growth Day 1 Anaerobic Blood Culture - Preliminary No Growth Day 1 Assess/Plan/Problems-Billing Assessment: Ms. 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 Patient's respiratory status is improving and her liver biopsy showed metastatic SSLC. Patient is being bridged with lovenox until INR is therapeutic. - Patient Problems (1) Lung mass Current Visit: Yes Status: Acute Code(s): R91.8 - OTHER NONSPECIFIC ABNORMAL FINDING OF LUNG FIELD SNOMED Code(s): 570654195 Comment: - Appreciate Dr. Fischer's consult - Biopsy showed SSLC, Day 3/3 of chemotherapy (2) Thrombocytopenia Current Visit: Yes Status: Acute Code(s): D69.6 - THROMBOCYTOPENIA, UNSPECIFIED SNOMED Code(s): 058498468 Comment: - Significant decrease in platelets since admission, but now stable - Likely due to liver disease and not HIT - Appreciate Hematology/Oncology input - Continue anticoagulation until less than 50K (3) Acute CHF Current Visit: Yes Status: Acute Code(s): I50.9 - HEART FAILURE, UNSPECIFIED SNOMED Code(s): 07666917 Comment: - Responded well to lasix, no further lasix. - May be tachycardia related given high HR on arrival. Recurrent afib with RVR on telemetry. - Start diltiazem for rate control in PAF - No hx of CHF, echo with intact EF and no wall motion or valvular abnormalities. - No signs of recurrent exacerbation. (4) COPD (chronic obstructive pulmonary disease) Current Visit: Yes Status: Acute Code(s): J44.9 - CHRONIC OBSTRUCTIVE PULMONARY DISEASE, UNSPECIFIED SNOMED Code(s): 20694979 Comment: - No evidence of acute exacerbation. - Continue nebs prn with spiriva (5) Chronic back pain Current Visit: Yes Status: Acute Code(s): M54.9 - DORSALGIA, UNSPECIFIED; G89.29 - OTHER CHRONIC PAIN SNOMED Code(s): 527301934 Comment: - Continue oxycodone po and long acting morphine - MRI spine shows lesion in T12 as well as severe degenerative disc disease - Right sided rib fractures also likely contributing. (6) Diabetes Current Visit: Yes Status: Acute Code(s): E11.9 - TYPE 2 DIABETES MELLITUS WITHOUT COMPLICATIONS SNOMED Code(s): 63500774 Comment: - BGs 200 this AM. - Increase lantus to 30 units qAM with lispro SSI coverage for meals. (7) Elevated LFTs Current Visit: Yes Status: Acute Code(s): R94.5 - ABNORMAL RESULTS OF LIVER FUNCTION STUDIES SNOMED Code(s): 751982039 Comment: - Stable - Likely due to metastatic liver lesions. (8) Hypertension Current Visit: Yes Status: Acute Code(s): I10 - ESSENTIAL (PRIMARY) HYPERTENSION SNOMED Code(s): 21986000 Comment: - Normotensive - Continue hctz, lisinopril. (9) DVT prophylaxis Current Visit: Yes Status: Acute Code(s): TUR8512 - SNOMED Code(s): 114566005 Comment: - Lovenox full dose (10) Full code status Current Visit: Yes Status: Acute Code(s): Z78.9 - OTHER SPECIFIED HEALTH STATUS SNOMED Code(s): 992499351 Comment: Status and Disposition: Inpatient. Anticipate discharge to home when medically stable.
[2018-05-26] MEDS: ETOPOSIDE IVPB SCH (15:24)
[2018-05-26] MEDS: NS 0.9% IVPB SCH (15:24)
[2018-05-26] MEDS: Clotrimazole TROCHE* 10 MG TROCHE PO SCH ×2 (15:29→21:17)
[2018-05-26] MEDS: Gabapentin CAP(*) 400 MG PO SCH (21:17)
[2018-05-26] MEDS: guaiFENesin ER TAB 600 MG PO SCH (21:18)
[2018-05-27] MEDS: Diltiazem TAB* 30 MG PO SCH ×4 (00:56→19:15)
[2018-05-27] MEDS: oxyCODONE TAB* 5 MG TAB PO PRN ×2 (04:38→20:03)
[2018-05-27 04:49] LABS: ABS Neutrophils 6.3 10^3/ul (1.5-7.7); Hematocrit 34 % (35-47); Hemoglobin 10.7 g/dl (12.0-16.0); Mean Corpuscular HGB Conc 32 g/dl (31-36); Mean Corpuscular Hemoglobin 27 pg (27-31); Mean Corpuscular Volume 86 fL (80-97); Mean Platelet Volume 9.5 um3 (7.4-10.4); Platelet Count 58 10^3/ul (150-450); Red Blood Count 3.95 10^6/ul (4.00-5.40); Red Cell Distribution Width 22 % (10.5-15); White Blood Count 8.7 10^3/ul (3.5-10.8)
[2018-05-27 04:58] LABS: EGFR Non-African American 127.6 (>60)
[2018-05-27 05:25] LABS: ABS Basophils 0 10^3/ul (0-0.2); ABS Eosinophils 0 10^3/ul (0-0.6); ABS Lymphocytes 2.1 10^3/ul (1.0-4.8); ABS Monocytes 0.3 10^3/ul (0-0.8); ABS Nucleated RBC 0 10^3/ul; Eosinophil % 0.5 % (0-6); Nucleated Red Blood Cells % 0.1
[2018-05-27] MEDS: Omeprazole CAP* 20 MG PO SCH (07:40)
[2018-05-27] MEDS: Albuterol HFA INHALER* 8 gm MDI INH PRN (07:49)
[2018-05-27] MEDS: Tiotropium CAP.INH* CAP.INH/18 MCG (USE ORDER SET !) INH SCH (07:49)
[2018-05-27] MEDS: Insulin LISPRO* 1 UNITS UNIT SUBCUT SCH ×3 (09:36→19:15)
[2018-05-27] MEDS: Insulin GLARGINE(*) 1 UNITS UNIT SUBCUT SCH (09:36)
[2018-05-27] MEDS: Polyethylene Glycol 3350* 17 GM PACKET PO SCH (09:36)
[2018-05-27] MEDS: Citalopram TAB* 40 MG PO SCH (09:37)
[2018-05-27] MEDS: Enoxaparin(*) 100 MG/ML SYR SUBCUT SCH ×2 (09:37→22:28)
[2018-05-27] MEDS: Gabapentin CAP(*) 300 MG PO SCH ×2 (09:37→12:30)
[2018-05-27] MEDS: Nystatin TOP POWDER* 15 GM BTL TOPICAL SCH ×3 (09:37→20:04)
[2018-05-27] MEDS: Lisinopril TAB* 10 MG PO SCH (09:38)
[2018-05-27] MEDS: Morphine TAB Extended Release (*) 15 MG TAB.ER PO SCH ×2 (09:38→20:02)
[2018-05-27] MEDS: guaiFENesin ER TAB 600 MG PO SCH ×2 (09:39→20:03)
[2018-05-27] MEDS: Folic Acid TAB* 1 MG PO SCH (09:39)
[2018-05-27] MEDS: Allopurinol TAB* 300 MG PO SCH (09:39)
[2018-05-27] MEDS: Clotrimazole TROCHE* 10 MG TROCHE PO SCH ×3 (09:42→20:02)
--- NOTE | 2018-05-27 10:13 | PN ---
Progress Note - Progress Note Date of Service: 05/27/18 SOAP: Subjective: []Feels better. HR has been steady, breathing has been better. Does not have oxygen at home. No fevers, no nausea. Back pain is better 10 today Medicaitons: Albuterol (Ventolin Hfa Inhaler*) 2 puff INH Q4HR PRN PRN Reason: SOB/WHEEZING Last Admin: 05/27/18 07:49 Dose: 2 puff Albuterol/Ipratropium (Duoneb (Albuterol 2.5 Mg/Ipratropium 0.5 Mg)) 1 neb INH Q4H PRN PRN Reason: SOB/WHEEZING Allopurinol (Zyloprim Tab*) 300 mg PO DAILY [facility] Last Admin: 05/27/18 09:39 Dose: 300 mg Citalopram Hydrobromide (Celexa Tab*) 20 mg PO DAILY [facility] Last Admin: 05/27/18 09:37 Dose: 20 mg Clotrimazole (Mycelex Kori*) 10 mg PO TID [facility] Last Admin: 05/27/18 09:42 Dose: 10 mg Dextrose (D50w Syringe 50 Ml*) 12.5 gm IV PUSH .FOR FS < 60 - SS PRN PRN Reason: FS < 60 Diltiazem HCl (Cardizem Tab*) 30 mg PO Q6H [facility] Last Admin: 05/27/18 07:40 Dose: 30 mg Docusate Sodium (Colace Cap*) 100 mg PO BID PRN PRN Reason: CONSTIPATION Last Admin: 05/26/18 10:58 Dose: 100 mg Enoxaparin Sodium (Lovenox(*)) 100 mg SUBCUT Q12H [facility] Last Admin: 05/27/18 09:37 Dose: 100 mg Folic Acid (Folvite Tab*) 1 mg PO DAILY [facility] Last Admin: 05/27/18 09:39 Dose: 1 mg Gabapentin (Neurontin Cap(*)) 600 mg PO 0900,1200 [facility] Last Admin: 05/27/18 09:37 Dose: 600 mg Gabapentin (Neurontin Cap(*)) 1,200 mg PO BEDTIME [facility] Last Admin: 05/26/18 21:17 Dose: 1,200 mg Guaifenesin (Mucinex*) 1,200 mg PO BID [facility] Last Admin: 05/27/18 09:39 Dose: 1,200 mg Insulin Glargine (Lantus(*)) 30 units SUBCUT QAM [facility] Last Admin: 05/27/18 09:36 Dose: 30 units Insulin Human Lispro (Humalog*) 0 units SUBCUT AC [facility]; Protocol Last Admin: 05/27/18 09:36 Dose: 6 units Lisinopril (Prinivil Tab*) 20 mg PO DAILY [facility] Last Admin: 05/27/18 09:38 Dose: 20 mg Morphine Sulfate (Ms Contin(*)) 30 mg PO Q12H [facility] Last Admin: 05/27/18 09:38 Dose: 30 mg Nystatin (Nystatin Top Powder*) 1 applic TOPICAL TID [facility] Last Admin: 05/27/18 09:37 Dose: Not Given Omeprazole (Prilosec Cap*) 20 mg PO DAILY@0730 [facility] Last Admin: 05/27/18 07:40 Dose: 20 mg Ondansetron HCl (Zofran Odt Tab*) 8 mg SL Q8H PRN PRN Reason: NAUSEA/VOMITING Oxycodone HCl (Roxycodone Tab*) 10 mg PO Q3H PRN PRN Reason: PAIN Last Admin: 05/27/18 04:38 Dose: 10 mg Polyethylene Glycol/Electrolytes (Miralax*) 17 gm PO DAILY [facility] Last Admin: 05/27/18 09:36 Dose: 17 gm Prochlorperazine (Compazine Tab*) 10 mg PO Q6HR PRN PRN Reason: NAUSEA Senna (Senokot Tab*) 2 tab PO BEDTIME PRN PRN Reason: CONSTIPATION Last Admin: 05/25/18 21:20 Dose: 2 tab Tiotropium [place] (Spiriva Cap.Inh*) 1 cap INH DAILY [facility] Last Admin: 05/27/18 07:49 Dose: 1 cap Objective: [] Vital Signs Temp Pulse Resp BP Pulse Ox 98.3 F 85 18 113/49 90 05/27/18 07:15 05/27/18 07:50 05/27/18 09:38 05/27/18 07:15 05/27/18 07:50 HEENT sclera icterus. OM moist. No wheezing, decreased BS but improved RRR S1S2 +BS obese, non specific exam, non tender Etxt +1 edema Neuro AAOx3 MRI brain- no cancer MRI LS spine + T12 lesion, no CC T bili 1.9 Plts 59 Assessment: []57 year old with new diagnosis SSLC with rapidly expanding disease, progressive thrombocytopenia and liver dysfunction. Day 4 cycle 1 of Carbo/ Etoposide Plan: []1. Carboplatin and Etoposide, day 4 of cycle 1. 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 Hope to see improvement. 3. Home on Aritxtra 10 mg daily, hold for plts < 50,000 - Stop Coumadin - Check CBC on 05/29 4. Liver dysfunction. Improved and home on Celexa 40 mg daily 5. A-fib. DC on Cardizem CD 180 mg po daily - Hold HCTZ - Lisinopril to 10 mg po dialy - Hold [place]iral[place] 6. DM. Will discharge on Glucovance 2.5/500 po bid 7. RA. Hold MTX 8. Pain. Morphine ER 15 bid and Oxycodone 10 mg po q6 on discharge. Hold [place]. - consider XRT as out patient. 9. Discharge home.
--- NOTE | 2018-05-27 14:09 | DS ---
CC: Dr. Rodriguez DISCHARGE SUMMARY: DATE OF ADMISSION: 05/19/18 DATE OF DISCHARGE: 05/27/18 DISCHARGE DIAGNOSES: 1. Atrial fibrillation with congestive heart failure. 2. New diagnosis: Small cell lung cancer, status post chemotherapy. 3. Diabetes. 4. Thrombocytopenia. HOSPITAL COURSE: The patient came in with shortness of breath and fluid overload. She had an intermittent arrhythmia at home, but was in sinus rhythm in the emergency room. Echocardiogram was done that showed normal EF and no significant valvular disease. Shortness of breath attributed to COPD. She was treated with COPD exacerbation and had a CT scan of the chest with IV contrast. No embolic disease. She did have a new left lower lobe pulmonary mass measuring just under 4 cm, multiple hypodense liver lesions. She had an ultrasound of the liver that confirmed lesions suspicious for metastatic disease. There was also enlargement of the right atrium, but this was seen previously on CT scans of the last year. She had an ultrasound-guided biopsy of the liver lesion that showed small cell carcinoma consistent with a lung origin without strongly positive TTF1. During the hospitalization, she had increase in liver function, liver compromise and decision was made to treat with chemotherapy, [place]-etoposide starting last Sunday. She tolerated chemotherapy quite well. Her bilirubin, which had been 1.6 on admission went to 3.1 on day of starting chemotherapy and is 1.9 today. She had thrombocytopenia, platelets down to 54, was up to 58 today. Other blood counts have been stable. Over the weekend, she developed atrial fibrillation with rapid ventricular response. In retrospect, this is likely reason for her admission. She was started on short-acting Cardizem with a heart rate now in the 80s. We will plan discharge today with close followup in clinic over the next week and will be continuing her chemotherapy. Other staging studies including MRI of the brain, which did not show metastatic disease. MEDICATIONS: Medications stopped: 1. Nirali-D 180 mg daily. 2. Hydrochlorothiazide. 3. [place]. 4. Methotrexate. 5. Warfarin. 6. Lisinopril 20 mg a day. 7. Metformin. Medications started: 1. Lisinopril 10 mg a day. 2. Cardizem CD 180 daily. 3. Arixtra 10 mg daily. 4. Glucovance 2.5/500 one tab twice a day. MEDICATIONS ON DISCHARGE: 1. Ventolin 2 puffs q.4 p.r.n. 2. Allopurinol 300 mg daily. 3. Citalopram 40 mg p.o. daily. 4. Diltiazem CD 180 mg p.o. daily. 5. Docusate 100 mg p.o. b.i.d. 6. Arixtra 10 mg subcu daily. 7. Folic acid 1 mg daily. 8. Gabapentin 600 mg, then 900, and 1200 mg at bedtime. 9. Mucinex b.i.d. p.r.n. 10. Lisinopril 10 mg a day. 11. Morphine sulfate/MS Contin 15 mg p.o. q.12. 13. Omeprazole 20 mg daily. 14. Oxycodone 10 mg q.6 p.r.n. 15. Glucovance 2.5/500 one tab b.i.d. FOLLOWUP: Followup will be this coming Sunday, in 2 days in our clinic, and we will recheck her CBC and review her medications. Discussed calling us for any questions, concerns or complaints. Specifically, she needs to call with any change in breathing, temperature over 100.5. [id number]/[facility] #: [id number] TRACEY
[2018-05-27] MEDS: Gabapentin CAP(*) 400 MG PO SCH (20:03)
[2018-05-28] MEDS: Diltiazem TAB* 30 MG PO SCH ×4 (00:45→18:46)
[2018-05-28] MEDS: Tiotropium CAP.INH* CAP.INH/18 MCG (USE ORDER SET !) INH SCH (07:50)
[2018-05-28] MEDS: Albuterol HFA INHALER* 8 gm MDI INH PRN (07:54)
[2018-05-28] MEDS: Polyethylene Glycol 3350* 17 GM PACKET PO SCH (08:27)
[2018-05-28] MEDS: Citalopram TAB* 40 MG PO SCH (08:27)
[2018-05-28] MEDS: Omeprazole CAP* 20 MG PO SCH (08:27)
[2018-05-28] MEDS: Gabapentin CAP(*) 300 MG PO SCH ×2 (08:28→11:40)
[2018-05-28] MEDS: Allopurinol TAB* 300 MG PO SCH (08:28)
[2018-05-28] MEDS: Folic Acid TAB* 1 MG PO SCH (08:28)
[2018-05-28] MEDS: Morphine TAB Extended Release (*) 15 MG TAB.ER PO SCH ×2 (08:29→21:49)
[2018-05-28] MEDS: Lisinopril TAB* 10 MG PO SCH (08:30)
[2018-05-28] MEDS: guaiFENesin ER TAB 600 MG PO SCH ×2 (08:30→21:49)
[2018-05-28] MEDS: Clotrimazole TROCHE* 10 MG TROCHE PO SCH ×3 (08:31→21:48)
[2018-05-28] MEDS: Insulin LISPRO* 1 UNITS UNIT SUBCUT SCH ×3 (08:31→16:57)
[2018-05-28] MEDS: Enoxaparin(*) 100 MG/ML SYR SUBCUT SCH ×2 (08:32→21:48)
[2018-05-28] MEDS: Nystatin TOP POWDER* 15 GM BTL TOPICAL SCH ×3 (08:32→21:53)
[2018-05-28] MEDS: Insulin GLARGINE(*) 1 UNITS UNIT SUBCUT SCH (08:32)
[2018-05-28] MEDS ORDERED: Furosemide TAB* 40 MG PO ONE (10:36)
--- NOTE | 2018-05-28 10:36 | PN ---
Progress Note - Progress Note Date of Service: 05/28/18 SOAP: Subjective: [Discharge canceled yesterday as she did not think she could climb the 8 stairs required to get in to her home. PT re-evaluated her this morning, and she was unable to do the stairs in the PT gym. She feels that she would benefit from a rehab stay.] Objective: [ Laboratory Results - last 24 hr 05/27/18 05/27/18 05/28/18 11:57 16:59 07:25 POC Glucose (mg/dL) 316 H 218 H 144 H Albuterol (Ventolin Hfa Inhaler*) 2 puff INH Q4HR PRN PRN Reason: SOB/WHEEZING Last Admin: 05/28/18 07:54 Dose: 2 puff Albuterol/Ipratropium (Duoneb (Albuterol 2.5 Mg/Ipratropium 0.5 Mg)) 1 neb INH Q4H PRN PRN Reason: SOB/WHEEZING Allopurinol (Zyloprim Tab*) 300 mg PO DAILY [facility] Last Admin: 05/28/18 08:28 Dose: 300 mg Citalopram Hydrobromide (Celexa Tab*) 20 mg PO DAILY [facility] Last Admin: 05/28/18 08:27 Dose: 20 mg Clotrimazole (Mycelex Kori*) 10 mg PO TID [facility] Last Admin: 05/28/18 08:31 Dose: 10 mg Dextrose (D50w Syringe 50 Ml*) 12.5 gm IV PUSH .FOR FS < 60 - SS PRN PRN Reason: FS < 60 Diltiazem HCl (Cardizem Tab*) 30 mg PO Q6H [facility] Last Admin: 05/28/18 08:30 Dose: 30 mg Docusate Sodium (Colace Cap*) 100 mg PO BID PRN PRN Reason: CONSTIPATION Last Admin: 05/26/18 10:58 Dose: 100 mg Enoxaparin Sodium (Lovenox(*)) 100 mg SUBCUT Q12H [facility] Last Admin: 05/28/18 08:32 Dose: 100 mg Folic Acid (Folvite Tab*) 1 mg PO DAILY [facility] Last Admin: 05/28/18 08:28 Dose: 1 mg Gabapentin (Neurontin Cap(*)) 600 mg PO 0900,1200 [facility] Last Admin: 05/28/18 08:28 Dose: 600 mg Gabapentin (Neurontin Cap(*)) 1,200 mg PO BEDTIME [facility] Last Admin: 05/27/18 20:03 Dose: 1,200 mg Guaifenesin (Mucinex*) 1,200 mg PO BID [facility] Last Admin: 05/28/18 08:30 Dose: 1,200 mg Insulin Glargine (Lantus(*)) 30 units SUBCUT QAM [facility] Last Admin: 05/28/18 08:32 Dose: 30 units Insulin Human Lispro (Humalog*) 0 units SUBCUT AC [facility]; Protocol Last Admin: 05/28/18 08:31 Dose: 2 units Lisinopril (Prinivil Tab*) 20 mg PO DAILY [facility] Last Admin: 05/28/18 08:30 Dose: 20 mg Morphine Sulfate (Ms Contin(*)) 30 mg PO Q12H [facility] Last Admin: 05/28/18 08:29 Dose: 30 mg Nystatin (Nystatin Top Powder*) 1 applic TOPICAL TID [facility] Last Admin: 05/28/18 08:32 Dose: Not Given Omeprazole (Prilosec Cap*) 20 mg PO DAILY@0730 [facility] Last Admin: 05/28/18 08:27 Dose: 20 mg Ondansetron HCl (Zofran Odt Tab*) 8 mg SL Q8H PRN PRN Reason: NAUSEA/VOMITING Oxycodone HCl (Roxycodone Tab*) 10 mg PO Q3H PRN PRN Reason: PAIN Last Admin: 05/27/18 20:03 Dose: 10 mg Polyethylene Glycol/Electrolytes (Miralax*) 17 gm PO DAILY [facility] Last Admin: 05/28/18 08:27 Dose: 17 gm Prochlorperazine (Compazine Tab*) 10 mg PO Q6HR PRN PRN Reason: NAUSEA Senna (Senokot Tab*) 2 tab PO BEDTIME PRN PRN Reason: CONSTIPATION Last Admin: 05/25/18 21:20 Dose: 2 tab Tiotropium [place] (Spiriva Cap.Inh*) 1 cap INH DAILY [facility] Last Admin: 05/28/18 07:50 Dose: 1 cap Vital Signs: Temp Pulse Resp BP Pulse Ox 97.3 F 80 18 124/43 91 05/28/18 07:46 05/28/18 08:25 05/28/18 08:29 05/28/18 08:25 05/28/18 07:56 Exam: Gen: obese 57 yo female in NAD, sitting in recliner at bedside HEENT: MMM, no thrush CV: RRR, no m/r/g Resp: occasional wheeze and rhonchi Abd: soft, nonTTP Ext: 1-2+ LE edema bilaterally] [Assessment: []57 year old with new diagnosis SSLC with rapidly expanding disease, progressive thrombocytopenia and liver dysfunction. Day 5 cycle 1 of Carbo/ Etoposide Plan: []1. Carboplatin and Etoposide, day 4 of cycle 1. - No neulasta - Will follow closely, C2 to start 06/17 - Compazine, Zofran PRN 2. 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 - cont to follow and anticipate improvement with treatment 3. Anticoagulation - Home on Arixtra 10 mg daily, hold for plts < 50,000 - Stop Coumadin 4. Liver dysfunction. Improved and home on Celexa 40 mg daily 5. A-fib. DC on Cardizem CD 180 mg po daily - Hold HCTZ - Lisinopril to 10 mg po daily 6. DM. Will discharge on Glucovance 2.5/500 po bid 7. RA. Hold MTX 8. Pain. Morphine ER 15 bid and Oxycodone 10 mg po q6 on discharge. Hold [place]. - consider XRT as out patient. Dispo: initial plan for dc home, but unable to climb stairs to enter the house. Recommend rehab, CM/SW involved in dc planning]
[2018-05-28] MEDS: oxyCODONE TAB* 5 MG TAB PO PRN ×2 (13:47→21:52)
[2018-05-28] MEDS: Gabapentin CAP(*) 400 MG PO SCH (21:48)
[2018-05-29] MEDS: Diltiazem TAB* 30 MG PO SCH ×3 (00:24→12:41)
[2018-05-29 04:51] LABS: EGFR Non-African American 156.1 (>60)
[2018-05-29 05:01] LABS: ABS Basophils 0 10^3/ul (0-0.2); ABS Eosinophils 0 10^3/ul (0-0.6); ABS Lymphocytes 2.2 10^3/ul (1.0-4.8); ABS Monocytes 0 10^3/ul (0-0.8); ABS Neutrophils 2.9 10^3/ul (1.5-7.7); ABS Nucleated RBC 0 10^3/ul; Eosinophil % 0.8 % (0-6); Hematocrit 32 % (35-47); Hemoglobin 10.3 g/dl (12.0-16.0); Lymphocyte % 41.8 % (25-47); Mean Corpuscular HGB Conc 32 g/dl (31-36); Mean Corpuscular Hemoglobin 27 pg (27-31); Mean Corpuscular Volume 85 fL (80-97); Mean Platelet Volume 9.2 um3 (7.4-10.4); Nucleated Red Blood Cells % 0.1; Platelet Count 48 10^3/ul (150-450); Red Blood Count 3.78 10^6/ul (4.00-5.40); Red Cell Distribution Width 21 % (10.5-15); White Blood Count 5.2 10^3/ul (3.5-10.8)
[2018-05-29] MEDS: Insulin LISPRO* 1 UNITS UNIT SUBCUT SCH ×2 (07:43→12:41)
[2018-05-29] MEDS: Omeprazole CAP* 20 MG PO SCH (07:43)
[2018-05-29] MEDS: Albuterol HFA INHALER* 8 gm MDI INH PRN (07:53)
[2018-05-29] MEDS: Tiotropium CAP.INH* CAP.INH/18 MCG (USE ORDER SET !) INH SCH (07:53)
[2018-05-29] MEDS ORDERED: Furosemide TAB* 20 MG PO SCH (09:00)
[2018-05-29] MEDS: Polyethylene Glycol 3350* 17 GM PACKET PO SCH (09:48)
[2018-05-29] MEDS: Gabapentin CAP(*) 300 MG PO SCH ×2 (09:48→12:41)
[2018-05-29] MEDS: Allopurinol TAB* 300 MG PO SCH (09:49)
[2018-05-29] MEDS: Citalopram TAB* 40 MG PO SCH (09:49)
[2018-05-29] MEDS: Clotrimazole TROCHE* 10 MG TROCHE PO SCH (09:49)
[2018-05-29] MEDS: Morphine TAB Extended Release (*) 15 MG TAB.ER PO SCH (09:50)
[2018-05-29] MEDS: Lisinopril TAB* 10 MG PO SCH (09:50)
--- NOTE | 2018-05-29 09:50 | DCNOTE ---
Please see full discharge summary from Dr Fischer 05/27/18. Patient was unable to be discharged to home as she was unable to walk up the stairs into her home. She continued to work with PT and instead will be discharged to subacute rehab at [facility]. Repeat CBC prior to discharge showed a platelet count of 48K, so her anticoagulation will be held at this time. The indication for her anticoagulation for afib and remote history of DVT (2009). She was also persistently edematous in her legs and Lasix was started at just 20mg daily. These changes were reflected in her discharge medications. She will be seen in the oncology clinic for follow up and repeat lab work 06/06/18. There were no additional changes to her hospitalization that are not reflected in the original discharge summary.
[2018-05-29] MEDS: Insulin GLARGINE(*) 1 UNITS UNIT SUBCUT SCH (09:51)
[2018-05-29] MEDS: guaiFENesin ER TAB 600 MG PO SCH (09:51)
[2018-05-29] MEDS: Folic Acid TAB* 1 MG PO SCH (09:51)
[2018-05-29] MEDS: Nystatin TOP POWDER* 15 GM BTL TOPICAL SCH (09:53)
[2018-05-29 13:32] VITALS: BP 115/48
== END 2018-05-29 13:13 | DRG 136 ==
LOC: ED 08:24 → MEDTELE 12:08
PROVIDERS: ADMIT Hospitalist; ATTEND Internal Medicine Hematology & Oncology
PROC: 5A09457 Assistance with Respiratory Ventilation, 24-96 Consecutive Hours, Continuous Positive Airway Pressure (ICD-10-PCS; principal; 2018-05-19)
PROC: 0FB23ZX Excision of Left Lobe Liver, Percutaneous Approach, Diagnostic (ICD-10-PCS; 2018-05-26)
PROC: 3E03305 Introduction of Other Antineoplastic into Peripheral Vein, Percutaneous Approach (ICD-10-PCS; 2018-05-26)
DX: C34.32 Malignant neoplasm of lower lobe, left bronchus or lung (principal); C78.7 Secondary malignant neoplasm of liver and intrahepatic bile duct; J44.1 Chronic obstructive pulmonary disease with (acute) exacerbation; I82.509 Chronic embolism and thrombosis of unspecified deep veins of unspecified lower extremity; N39.0 Urinary tract infection, site not specified; G95.9 Disease of spinal cord, unspecified; Z68.42 Body mass index [BMI] 45.0-49.9, adult; I11.0 Hypertensive heart disease with heart failure; R20.2 Paresthesia of skin; E11.9 Type 2 diabetes mellitus without complications; G47.30 Sleep apnea, unspecified; K21.9 Gastro-esophageal reflux disease without esophagitis; L40.50 Arthropathic psoriasis, unspecified; G89.29 Other chronic pain; M54.5 Low back pain; F41.9 Anxiety disorder, unspecified; F32.9 Major depressive disorder, single episode, unspecified; F17.210 Nicotine dependence, cigarettes, uncomplicated; E78.5 Hyperlipidemia, unspecified; E66.01 Morbid (severe) obesity due to excess calories; K59.00 Constipation, unspecified; I48.91 Unspecified atrial fibrillation; E27.9 Disorder of adrenal gland, unspecified; D69.6 Thrombocytopenia, unspecified; E87.6 Hypokalemia; I50.9 Heart failure, unspecified; Z90.49 Acquired absence of other specified parts of digestive tract; Z88.1 Allergy status to other antibiotic agents; Z88.8 Allergy status to other drugs, medicaments and biological substances; Z23 Encounter for immunization; Z86.14 Personal history of Methicillin resistant Staphylococcus aureus infection
CPT/HCPCS: 36415; 47000; 70553; 71046; 71260; 72128; 72131; 72158; 74177; 76705; 76942; 80048; 80053; 80307; 80320; 81003; 81015; 82550; 83605; 83735; 83880; 84443; 84484; 85025; 85520; 85610; 85730; 86140; 87040; 87086; 88172; 88173; 88184; 88187; 88188; 88189; 88305; 88341; 88342; 88360; 90686; 90732; 93005; 93306; 94640; 94660; 99223; 99232; 99233; 99239; 99285; A9270-GY; A9579; G0480; G8987-GO-CJ; G8988-GO-CH; J0696; J1100; J1170; J1453; J1650; J1940; J2469; J2543; J3010; J3480; J9045; J9181; Q9967

== ENCOUNTER 2018-11-08 15:54 | Inpatient (IN) | payer BC ==
[2018-11-08] MEDS ORDERED: HYDROmorphone INJ* 0.5 MG/0.5 ML SYRINGE IV SLOW PU PRN (16:38)
[2018-11-08] MEDS ORDERED: Ondansetron INJ* 2 MG/ML VIAL IV PRN (16:45)
[2018-11-08] MEDS ORDERED: ALPRAZolam TAB* 0.25 MG PO PRN (16:55)
[2018-11-08] MEDS ORDERED: Enoxaparin(*) 40 MG/0.4 ML SYR SUBCUT SCH (17:00)
[2018-11-08] MEDS: HYDROmorphone INJ1* 1 MG/ML SYRINGE IV SLOW PU PRN ×2 (17:01→20:34)
[2018-11-08] MEDS: Morphine TAB Extended Release (*) 30 MG TAB.ER PO SCH (20:24)
[2018-11-09] MEDS: Insulin LISPRO* 1 UNITS UNIT SUBCUT SCH ×5 (00:12→21:24)
[2018-11-09] MEDS: Gabapentin CAP(*) 400 MG PO SCH ×2 (00:45→21:25)
[2018-11-09] MEDS: HYDROmorphone INJ1* 1 MG/ML SYRINGE IV PRN ×6 (00:45→17:22)
[2018-11-09 06:46] LABS: ABS Basophils 0 10^3/ul (0-0.2); ABS Eosinophils 0.2 10^3/ul (0-0.6); ABS Monocytes 0.7 10^3/ul (0-0.8); ABS Neutrophils 5.6 10^3/ul (1.5-7.7); ABS Nucleated RBC 0 10^3/ul; Eosinophil % 2.8 %; Hematocrit 30 % (33-41); Hemoglobin 9.2 g/dL (12.0-16.0); Lymphocyte % 13.3 %; Mean Corpuscular HGB Conc 31 g/dL (31-36); Mean Corpuscular Hemoglobin 29 pg (27-31); Mean Corpuscular Volume 93 fL (80-97); Nucleated Red Blood Cells % 0.1; Platelet Count 231 10^3/uL (150-450); Red Blood Count 3.24 10^6 /uL (3.70-4.87); Red Cell Distribution Width 23 % (10.5-15); White Blood Count 7.6 10^3/uL (3.5-10.8)
[2018-11-09 06:49] LABS: Calcium 8.9 mg/dL (8.6-10.3); EGFR African American 120.1 (>60); EGFR Non-African American 99.2 (>60); Potassium 3.6 mmol/L (3.5-5.0)
[2018-11-09] MEDS ORDERED: Polyethylene Glycol 3350* 17 GM PACKET PO PRN (07:43)
--- NOTE | 2018-11-09 07:51 | PN ---
Progress Note - Progress Note Date of Service: 11/09/18 SOAP: Subjective: still reports severe pain (though honestly looks fairly comfortable). MS contin increased to TID yesterday and dilaudid IV increased overnight to 4 mg q2. reports continued pain in right hip and bilateral shoulders primarily. very thirsty. last BM yesterday am Objective: Vital Signs Temp Pulse Resp BP Pulse Ox 97.6 F 76 16 108/52 95 11/09/18 02:37 11/09/18 02:37 11/09/18 07:10 11/09/18 02:37 11/09/18 02:37 sitting in a chair in nad perr eomi op dry CTA ant s1 s2 nl obese nt +bs 2+ LE hard, brauny edema A+O x 3 did not ambulate Laboratory Results - last 24 hr 11/08/18 11/09/18 11/09/18 23:49 06:23 06:27 WBC 7.6 RBC 3.24 L Hgb 9.2 L Hct 30 L MCV 93 MCH 29 MCHC 31 RDW 23 H Plt Count 231 MPV 8.0 Neut % (Auto) 74.4 Lymph % (Auto) 13.3 Kerr % (Auto) 9.0 Eos % (Auto) 2.8 Baso % (Auto) 0.5 Absolute Neuts (auto) 5.6 Absolute Lymphs (auto) 1.0 Absolute Monos (auto) 0.7 Absolute Eos (auto) 0.2 Absolute Basos (auto) 0 Absolute Nucleated RBC 0 Nucleated RBC % 0.1 Sodium 137 Potassium 3.6 Chloride 99 L Carbon Dioxide 31 Anion Gap 7 BUN 18 Creatinine 0.62 Est GFR ( Amer) 120.1 Est GFR (Non-Af Amer) 99.2 BUN/Creatinine Ratio 29.0 H Glucose 106 H POC Glucose (mg/dL) 117 H Calcium 8.9 Acetaminophen (Tylenol Tab*) 650 mg PO Q4H PRN PRN Reason: FEVER/PAIN Allopurinol (Zyloprim Tab*) 300 mg PO DAILY [facility] Alprazolam (Xanax Tab*) 0.25 mg PO BID PRN PRN Reason: ANXIETY Cetirizine HCl (Zyrtec*) 10 mg PO DAILY [facility]; Protocol Citalopram Hydrobromide (Celexa Tab*) 40 mg PO DAILY [facility] Diltiazem HCl (Cardizem Cd Cap*) 180 mg PO DAILY [facility] Docusate Sodium (Colace Cap*) 100 mg PO BID [facility] Enoxaparin Sodium (Lovenox(*)) 40 mg SUBCUT Q24H [facility] Last Admin: 11/08/18 18:29 Dose: 40 mg Gabapentin (Neurontin Cap(*)) 1,200 mg PO BEDTIME [facility] Last Admin: 11/09/18 00:45 Dose: 1,200 mg Glyburide (Diabeta Tab*) 2.5 mg PO BID [facility] Hydromorphone HCl (Dilaudid Inj1s*) 4 mg IV Q2H PRN PRN Reason: PAIN Last Admin: 11/09/18 06:08 Dose: 4 mg Insulin Human Lispro (Humalog*) 0 units SUBCUT ACHS [facility]; Protocol Last Admin: 11/09/18 00:12 Dose: Not Given Metformin HCl (Glucophage*) 500 mg PO BID [facility] Metformin HCl (Metformin Er (Nf)) 500 mg PO BID [facility] Mometasone Furoate (Asmanex 220 Mcg Mdi *) 1 puff INH BEDTIME [facility] Morphine Sulfate (Ms Contin(*)) 90 mg PO TID [facility] Last Admin: 11/08/18 20:24 Dose: 90 mg Ondansetron HCl (Zofran Inj*) 4 mg IV Q4H PRN PRN Reason: NAUSEA/VOMITING Polyethylene Glycol/Electrolytes (Miralax*) 17 gm PO DAILY PRN PRN Reason: CONSTIPATION Assessment: 58 yo F w recurrent widely metastatic small cell lung cancer 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 Now on IV dilaudid. I do wonder if some of her pain flare could be psoriatic arthritis, in which case immunotherapy may make this worse. I would like to get a bone scan to see the extent of bony lesions, but will give her a pulse of steroids to see if this helps (unclear to me if recent oral steroids for URI did or not). Plan: -MS contin increased yesterday to 90 mg TID (increased to 90 mg BID on the ) . Can increase tomorrow to 120 TID -IV dilaudid increased overnight to 4 mg iv q2 hrs, will watch for 12 -18 hours prior to increasing further -add gabapentin to am and mid-day to see if there is a component of neuropathic pain -consider pain consult in no improvement in next 24-48 hours -add bowel regimen -cont metformin and glyburide, watch fingersticks closely with steroid pulse -resume eliquis for DVT prophylaxis I had an extensive conversation with Mari about her overall poor prognosis and code status. Though I do not anticipate demise on this hospitalization we discussed goals of care and she is very clear that she wants to be a full code
[2018-11-09] MEDS: Tiotropium CAP.INH* CAP.INH/18 MCG (USE ORDER SET !) INH SCH (08:26)
[2018-11-09] MEDS ORDERED: Dexamethasone IV* 40 MG in NS 0.9% 50 ML* 50 ML IVPB ONE (08:30)
[2018-11-09] MEDS ORDERED: Dexamethasone IV* 4 MG/ML 5 ML VIAL (20 MG) ONE ×2 (08:38→09:17)
[2018-11-09] MEDS: Morphine TAB Extended Release (*) 30 MG TAB.ER PO SCH ×3 (08:59→21:25)
[2018-11-09] MEDS ORDERED: Metformin ER (NF) 500 MG TAB PO SCH (09:00)
[2018-11-09] MEDS ORDERED: Beclomethasone 40 MCG MDI(NF) 40 MCG/PUFF MDI SCH (09:00)
[2018-11-09] MEDS ORDERED: Beclomethasone 40 MCG MDI(NF) 40 MCG/PUFF MDI INH SCH (09:00)
[2018-11-09] MEDS ORDERED: Spiriva Inhaler DEVICE* 1 EACH DEVICE INH SCH (09:00)
[2018-11-09] MEDS: Apixaban* 2.5 MG TAB PO SCH ×2 (09:02→21:26)
[2018-11-09] MEDS: Allopurinol TAB* 300 MG PO SCH (09:02)
[2018-11-09] MEDS: Cetirizine* 10 MG TAB PO SCH (09:02)
[2018-11-09] MEDS: metFORMIN* 500 MG TAB PO SCH ×2 (09:02→21:25)
[2018-11-09] MEDS: Citalopram TAB* 40 MG PO SCH (09:02)
[2018-11-09] MEDS: Docusate CAP* 100 MG PO SCH ×2 (09:03→21:25)
[2018-11-09] MEDS: Diltiazem CD CAP* 180 MG PO SCH (09:03)
[2018-11-09] MEDS: Potassium Chlor TAB* 20 MEQ TAB.ER PO SCH ×2 (09:03→10:14)
[2018-11-09] MEDS: Folic Acid TAB* 1 MG PO SCH (09:03)
[2018-11-09] MEDS: Furosemide TAB* 20 MG PO SCH (09:03)
[2018-11-09] MEDS: Gabapentin CAP(*) 300 MG PO SCH ×2 (09:04→13:23)
[2018-11-09] MEDS: Magnesium Oxide TAB* 400 MG PO SCH (09:08)
[2018-11-09] MEDS: glyBURIDE TAB* 2.5 MG PO SCH ×2 (09:28→21:26)
[2018-11-09] MEDS: Potassium Chloride LIQUID* 20 MEQ PACKET PO SCH (09:34)
[2018-11-09] MEDS: Mometasone 220 MCG MDI INH SCH (19:55)
[2018-11-10] MEDS: HYDROmorphone INJ1* 1 MG/ML SYRINGE IV PRN (03:51)
[2018-11-10] MEDS: Tiotropium CAP.INH* CAP.INH/18 MCG (USE ORDER SET !) INH SCH (08:02)
--- NOTE | 2018-11-10 08:14 | PN ---
Progress Note - Progress Note Date of Service: 11/10/18 SOAP: Subjective: pain much better controlled. shoulder pain improved. hip pain still there but better. able to go 4 hours between IV doses. Objective: Vital Signs Temp Pulse Resp BP Pulse Ox 98.0 F 73 16 141/62 97 11/10/18 03:48 11/10/18 08:04 11/10/18 08:04 11/10/18 03:48 11/10/18 08:04 sitting up, awake, smiling perr eomi op moist cta distant distant heart sounds obese nt +bs thick, brauny edema bilaterally A+O x 3 clean port Acetaminophen (Tylenol Tab*) 650 mg PO Q4H PRN PRN Reason: FEVER/PAIN Allopurinol (Zyloprim Tab*) 300 mg PO DAILY [facility] Last Admin: 11/09/18 09:02 Dose: 300 mg Alprazolam (Xanax Tab*) 0.25 mg PO BID PRN PRN Reason: ANXIETY Apixaban (Eliquis*) 2.5 mg PO BID [facility] Last Admin: 11/09/18 21:26 Dose: 2.5 mg Cetirizine HCl (Zyrtec*) 10 mg PO DAILY [facility]; Protocol Last Admin: 11/09/18 09:02 Dose: 10 mg Citalopram Hydrobromide (Celexa Tab*) 40 mg PO DAILY [facility] Last Admin: 11/09/18 09:02 Dose: 40 mg Device (Tiotropium Inhaler Device*) 1 each INH .USE w/ SPIRIVA CAPS [facility] Diltiazem HCl (Cardizem Cd Cap*) 180 mg PO DAILY [facility] Last Admin: 11/09/18 09:03 Dose: 180 mg Docusate Sodium (Colace Cap*) 100 mg PO BID [facility] Last Admin: 11/09/18 21:25 Dose: 100 mg Folic Acid (Folvite Tab*) 1 mg PO DAILY [facility] Last Admin: 11/09/18 09:03 Dose: 1 mg Furosemide (Lasix Tab*) 20 mg PO DAILY [facility] Last Admin: 11/09/18 09:03 Dose: 20 mg Gabapentin (Neurontin Cap(*)) 1,200 mg PO BEDTIME [facility] Last Admin: 11/09/18 21:25 Dose: 1,200 mg Gabapentin (Neurontin Cap(*)) 600 mg PO DAILY [facility] Last Admin: 11/09/18 09:04 Dose: 300 mg Gabapentin (Neurontin Cap(*)) 600 mg PO DAILY@1400 [facility] Last Admin: 11/09/18 13:23 Dose: 600 mg Glyburide (Diabeta Tab*) 2.5 mg PO BID [facility] Last Admin: 11/09/18 21:26 Dose: 2.5 mg Heparin Sodium (Porcine) (Heparin Flush Port (Ivad)) 5 ml FLUSH DAILY [facility]; Protocol Last Admin: 11/09/18 17:23 Dose: 5 ml Hydromorphone HCl (Dilaudid Tab*) 10 mg PO Q4H PRN PRN Reason: PAIN Insulin Human Lispro (Humalog*) 0 units SUBCUT ACHS [facility]; Protocol Last Admin: 11/09/18 21:24 Dose: 15 units Magnesium Oxide (Magox 400 Tab*) 400 mg PO DAILY [facility] Last Admin: 11/09/18 09:08 Dose: 400 mg Metformin HCl (Glucophage*) 500 mg PO BID [facility] Last Admin: 11/09/18 21:25 Dose: 500 mg Mometasone Furoate (Asmanex 220 Mcg Mdi *) 1 puff INH BEDTIME [facility] Last Admin: 11/09/18 19:55 Dose: 1 puff Morphine Sulfate (Ms Contin(*)) 90 mg PO TID [facility] Last Admin: 11/09/18 21:25 Dose: 90 mg Ondansetron HCl (Zofran Inj*) 4 mg IV Q4H PRN PRN Reason: NAUSEA/VOMITING Polyethylene Glycol/Electrolytes (Miralax*) 17 gm PO DAILY PRN PRN Reason: CONSTIPATION Last Admin: 11/09/18 09:00 Dose: 17 gm Potassium Chloride (Klor-Con Liquid*) 20 meq PO DAILY [facility] Last Admin: 11/09/18 09:34 Dose: 20 meq Tiotropium [place] (Spiriva Cap.Inh*) 1 cap INH DAILY [facility] Last Admin: 11/10/18 08:02 Dose: 1 cap Assessment: 58 yo F w recurrent widely metastatic small cell lung cancer getting palliative RT to [employer]IE [employer]ST [employer] and right hip, with progressive pain over last 2 weeks failing outpatient management. Now on IV dilaudid. I do wonder if some of her pain flare could be psoriatic arthritis, as she did get better with a 40 mg IV dose of dexamethasone, though this was at the same time we increased gabapentin and dilaudid. Regardless, I would like to try converting to oral dilaudid today in anticipation of discharge anna. Plan: -MS contin increased 11/08 to 90 mg TID (increased to 90 mg BID on the ). -dilaudid 10 mg PO q4 hrs prn pain -cont 600/600/1200 of gabapentin -cont bowel regimen -cont metformin and glyburide, watch fingersticks closely with steroid pulse -eliquis for DVT prophylaxis full code
[2018-11-10] MEDS: Furosemide TAB* 20 MG PO SCH (10:07)
[2018-11-10] MEDS: Folic Acid TAB* 1 MG PO SCH (10:07)
[2018-11-10] MEDS: Insulin LISPRO* 1 UNITS UNIT SUBCUT SCH ×4 (10:07→21:20)
[2018-11-10] MEDS: Citalopram TAB* 40 MG PO SCH (10:07)
[2018-11-10] MEDS: Allopurinol TAB* 300 MG PO SCH (10:07)
[2018-11-10] MEDS: glyBURIDE TAB* 2.5 MG PO SCH ×2 (10:08→21:22)
[2018-11-10] MEDS: Morphine TAB Extended Release (*) 30 MG TAB.ER PO SCH ×3 (10:08→21:18)
[2018-11-10] MEDS: Gabapentin CAP(*) 300 MG PO SCH ×2 (10:08→12:32)
[2018-11-10] MEDS: Cetirizine* 10 MG TAB PO SCH (10:08)
[2018-11-10] MEDS: Magnesium Oxide TAB* 400 MG PO SCH (10:09)
[2018-11-10] MEDS: Docusate CAP* 100 MG PO SCH ×3 (10:09→21:24)
[2018-11-10] MEDS: metFORMIN* 500 MG TAB PO SCH ×2 (10:09→21:18)
[2018-11-10] MEDS: Apixaban* 2.5 MG TAB PO SCH ×2 (10:09→21:18)
[2018-11-10] MEDS: Diltiazem CD CAP* 180 MG PO SCH (10:09)
[2018-11-10] MEDS: Potassium Chloride LIQUID* 20 MEQ PACKET PO SCH (10:09)
[2018-11-10] MEDS: HYDROmorphone TAB* 4 MG PO PRN ×3 (10:26→21:19)
[2018-11-10] MEDS: Acetaminophen TAB* 325 MG PO PRN ×2 (10:53→17:30)
[2018-11-10] MEDS ORDERED: HYDROmorphone INJ1* 1 MG/ML SYRINGE IV ONE (12:25)
[2018-11-10] MEDS: Mometasone 220 MCG MDI INH SCH (20:34)
[2018-11-10] MEDS: Gabapentin CAP(*) 400 MG PO SCH (21:17)
[2018-11-11] MEDS: HYDROmorphone TAB* 4 MG PO PRN ×4 (03:43→19:55)
[2018-11-11] MEDS: Acetaminophen TAB* 325 MG PO PRN ×3 (05:17→19:58)
[2018-11-11 05:21] LABS: Hematocrit 33 % (33-41); Hemoglobin 10.1 g/dL (12.0-16.0); Mean Corpuscular HGB Conc 30 g/dL (31-36); Mean Corpuscular Hemoglobin 28 pg (27-31); Mean Corpuscular Volume 94 fL (80-97); Mean Platelet Volume 7.9 fL (7.4-10.4); Platelet Count 257 10^3/uL (150-450); Red Blood Count 3.55 10^6 /uL (3.70-4.87); Red Cell Distribution Width 22 % (10.5-15); White Blood Count 11.1 10^3/uL (3.5-10.8)
[2018-11-11 05:39] LABS: BUN/Creatinine Ratio 31.3 (8-20); Calcium 9.2 mg/dL (8.6-10.3); EGFR African American 115.7 (>60); EGFR Non-African American 95.6 (>60)
[2018-11-11 05:53] LABS: ABS Basophils 0 10^3/ul (0-0.2); ABS Eosinophils 0.2 10^3/ul (0-0.6); ABS Lymphocytes 1.5 10^3/ul (1.0-4.8); ABS Monocytes 1.1 10^3/ul (0-0.8); ABS Neutrophils 8.2 10^3/ul (1.5-7.7); ABS Nucleated RBC 0 10^3/ul; Eosinophil % 1.9 %; Lymphocyte % 13.6 %; Nucleated Red Blood Cells % 0.1
[2018-11-11] MEDS: Tiotropium CAP.INH* CAP.INH/18 MCG (USE ORDER SET !) INH SCH (07:54)
[2018-11-11] MEDS: Insulin LISPRO* 1 UNITS UNIT SUBCUT SCH ×4 (08:24→21:57)
[2018-11-11] MEDS: Apixaban* 2.5 MG TAB PO SCH ×2 (09:42→19:59)
[2018-11-11] MEDS: Morphine TAB Extended Release (*) 30 MG TAB.ER PO SCH ×3 (09:42→19:57)
[2018-11-11] MEDS: Furosemide TAB* 20 MG PO SCH (09:43)
[2018-11-11] MEDS: Allopurinol TAB* 300 MG PO SCH (09:43)
[2018-11-11] MEDS: Gabapentin CAP(*) 300 MG PO SCH ×2 (09:44→16:46)
[2018-11-11] MEDS: metFORMIN* 500 MG TAB PO SCH ×2 (09:44→20:00)
[2018-11-11] MEDS: Folic Acid TAB* 1 MG PO SCH (09:44)
[2018-11-11] MEDS: Cetirizine* 10 MG TAB PO SCH (09:44)
[2018-11-11] MEDS: Citalopram TAB* 40 MG PO SCH (09:45)
[2018-11-11] MEDS: Magnesium Oxide TAB* 400 MG PO SCH (09:45)
[2018-11-11] MEDS: Potassium Chloride LIQUID* 20 MEQ PACKET PO SCH (09:45)
[2018-11-11] MEDS: Diltiazem CD CAP* 180 MG PO SCH (09:45)
[2018-11-11] MEDS: glyBURIDE TAB* 2.5 MG PO SCH ×2 (09:46→19:55)
[2018-11-11] MEDS: Docusate CAP* 100 MG PO SCH ×2 (09:46→19:57)
--- NOTE | 2018-11-11 10:57 | PN ---
Progress Note - Progress Note Date of Service: 11/11/18 SOAP: Subjective: []Pain is a little better but not much. Cannot walk, go up stairs. Most pain is lower back and shoulders. Hard to tell if inflammatory arthritis pain. Has increased skin lesions for psoriasis. Eating fine. Breating is fine. Worried about discharge. Still on XRT, tolerating. Acetaminophen (Tylenol Tab*) 650 mg PO Q4H PRN PRN Reason: FEVER/PAIN Last Admin: 11/11/18 05:17 Dose: 650 mg Allopurinol (Zyloprim Tab*) 300 mg PO DAILY [facility] Last Admin: 11/11/18 09:43 Dose: 300 mg Alprazolam (Xanax Tab*) 0.25 mg PO BID PRN PRN Reason: ANXIETY Apixaban (Eliquis*) 2.5 mg PO BID [facility] Last Admin: 11/11/18 09:42 Dose: 2.5 mg Cetirizine HCl (Zyrtec*) 10 mg PO DAILY [facility]; Protocol Last Admin: 11/11/18 09:44 Dose: 10 mg Citalopram Hydrobromide (Celexa Tab*) 40 mg PO DAILY [facility] Last Admin: 11/11/18 09:45 Dose: 40 mg Device (Tiotropium Inhaler Device*) 1 each INH .USE w/ SPIRIVA CAPS [facility] Diltiazem HCl (Cardizem Cd Cap*) 180 mg PO DAILY [facility] Last Admin: 11/11/18 09:45 Dose: 180 mg Docusate Sodium (Colace Cap*) 100 mg PO BID [facility] Last Admin: 11/11/18 09:46 Dose: 100 mg Folic Acid (Folvite Tab*) 1 mg PO DAILY [facility] Last Admin: 11/11/18 09:44 Dose: 1 mg Furosemide (Lasix Tab*) 20 mg PO DAILY [facility] Last Admin: 11/11/18 09:43 Dose: 20 mg Gabapentin (Neurontin Cap(*)) 1,200 mg PO BEDTIME [facility] Last Admin: 11/10/18 21:17 Dose: 1,200 mg Gabapentin (Neurontin Cap(*)) 600 mg PO DAILY [facility] Last Admin: 11/11/18 09:44 Dose: 600 mg Gabapentin (Neurontin Cap(*)) 600 mg PO DAILY@1400 [facility] Last Admin: 11/10/18 12:32 Dose: 600 mg Glyburide (Diabeta Tab*) 2.5 mg PO BID [facility] Last Admin: 11/11/18 09:46 Dose: 2.5 mg Heparin Sodium (Porcine) (Heparin Flush Port (Ivad)) 5 ml FLUSH DAILY [facility]; Protocol Last Admin: 11/11/18 10:08 Dose: 5 ml Hydromorphone HCl (Dilaudid Tab*) 10 mg PO Q4H PRN PRN Reason: PAIN Last Admin: 11/11/18 08:27 Dose: 10 mg Insulin Human Lispro (Humalog*) 0 units SUBCUT ACHS [facility]; Protocol Last Admin: 11/11/18 08:24 Dose: Not Given Magnesium Oxide (Magox 400 Tab*) 400 mg PO DAILY [facility] Last Admin: 11/11/18 09:45 Dose: 400 mg Metformin HCl (Glucophage*) 500 mg PO BID [facility] Last Admin: 11/11/18 09:44 Dose: 500 mg Mometasone Furoate (Asmanex 220 Mcg Mdi *) 1 puff INH BEDTIME [facility] Last Admin: 11/10/18 20:34 Dose: 1 puff Morphine Sulfate (Ms Contin(*)) 90 mg PO TID [facility] Last Admin: 11/11/18 09:42 Dose: 90 mg Ondansetron HCl (Zofran Inj*) 4 mg IV Q4H PRN PRN Reason: NAUSEA/VOMITING Polyethylene Glycol/Electrolytes (Miralax*) 17 gm PO DAILY PRN PRN Reason: CONSTIPATION Last Admin: 11/09/18 09:00 Dose: 17 gm Potassium Chloride (Klor-Con Liquid*) 20 meq PO DAILY [facility] Last Admin: 11/11/18 09:45 Dose: 20 meq Tiotropium Levasy (Spiriva Cap.Inh*) 1 cap INH DAILY [facility] Last Admin: 11/11/18 07:54 Dose: 1 cap Objective: [] Vital Signs Temp Pulse Resp BP Pulse Ox 97.8 F 68 16 138/67 96 11/11/18 07:22 11/11/18 07:55 11/11/18 09:44 11/11/18 07:22 11/11/18 07:55 No distress HEENT - OM moist, no lesions CTA no wheezing Tachy S1S2 obese, +BS NT ND Ext tr edema MK gross fine, good ROM elbow and shoulder, pain with movement. 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 Now on high dose po Dilaudid and MS contin. DDx for pain flare could be psoriatic arthritis, occult metastatic bone disease. Plan: 1. SSLC - end of life. Discussed prognosis, she may only life for a few more months. She wants to do all therpay possible at this time. There are other options, both immunotherapy and chemotherapy. However, we discussed that much is beyond our control and she needs to be prepared that additional therapy may not be effective. Agreed to palliative care consultation. 2. SSLC - treatment. Will check bone scan, if occult disese in shoulder, spine to account for pain, will continue plan for immunotherapy. If PA is causing pain , palliative chemotherapy will be only options, Topotecan vs Taxol. She is a candidate for therapy at this time. 3. Pain. ddx above - Continue MS contin 90 mg TID (increased to 90 mg BID on the ). - Add Methadone 10 mg po TID (QTc 448 on 10/28/18) - Cintinue dilaudid 10 mg PO q4 hrs prn pain - Cont 600/600/1200 of gabapentin - Cont bowel regimen - Try Prednisone 20 mg po daily 4. DM. Glucose looks improved today, cont metformin and glyburide, watch fingersticks closely with Prednisone. 5. Eliquis for DVT prophylaxis 6. Disp. PT eval for discharge full code
[2018-11-11] MEDS: predniSONE TAB* 20 MG PO SCH (11:24)
[2018-11-11] MEDS ORDERED: Methadone TAB* 10 MG PO ONE (12:00)
[2018-11-11] MEDS: Methadone TAB* 10 MG PO SCH ×2 (16:46→19:59)
--- NOTE | 2018-11-11 17:44 | CONSULT ---
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 PMH is significant for DM, DVT on warfin, COPD, chronic back pain-3 hernitated discs, hyperlipidemia and HTN. She is a smoker, no etoh no drug use living with . He is at home overnight but she is alone during the day. CXR showed mild pulm edema vs vascular congestion. Pt is getting better pain control in the hospital. She tolerated the earlier rounds of chemo therapy well but since starting radiation she has more pain. Lab Values: Abnormal Lab Results 11/10/18 11/10/18 11/11/18 17:22 20:20 05:00 WBC 11.1 H RBC 3.55 L Hgb 10.1 L Hct 33 MCV 94 MCH 28 MCHC 30 L RDW 22 H Plt Count 257 MPV 7.9 Neut % (Auto) 74.5 Lymph % (Auto) 13.6 [place] % (Auto) 9.6 Eos % (Auto) 1.9 Baso % (Auto) 0.4 Absolute Neuts (auto) 8.2 H Absolute Lymphs (auto) 1.5 Absolute Monos (auto) 1.1 H Absolute Eos (auto) 0.2 Absolute Basos (auto) 0 Absolute Nucleated RBC 0 Nucleated RBC % 0.1 Sodium Potassium Chloride Carbon Dioxide Anion Gap BUN Creatinine Est GFR ( Amer) Est GFR (Non-Af Amer) BUN/Creatinine Ratio Glucose POC Glucose (mg/dL) 290 H 350 H Calcium 11/11/18 11/11/18 11/11/18 05:00 08:07 11:28 WBC RBC Hgb Hct MCV MCH MCHC RDW Plt Count MPV Neut % (Auto) Lymph % (Auto) [place] % (Auto) Eos % (Auto) Baso % (Auto) Absolute Neuts (auto) Absolute Lymphs (auto) Absolute Monos (auto) Absolute Eos (auto) Absolute Basos (auto) Absolute Nucleated RBC Nucleated RBC % Sodium 138 Potassium 4.0 Chloride 96 L Carbon Dioxide 37 H Anion Gap 5 BUN 20 Creatinine 0.64 Est GFR ( Amer) 115.7 Est GFR (Non-Af Amer) 95.6 BUN/Creatinine Ratio 31.3 H Glucose 84 POC Glucose (mg/dL) 83 196 H Calcium 9.2 11/11/18 16:51 WBC RBC Hgb Hct MCV MCH MCHC RDW Plt Count MPV Neut % (Auto) Lymph % (Auto) [place] % (Auto) Eos % (Auto) Baso % (Auto) Absolute Neuts (auto) Absolute Lymphs (auto) Absolute Monos (auto) Absolute Eos (auto) Absolute Basos (auto) Absolute Nucleated RBC Nucleated RBC % Sodium Potassium Chloride Carbon Dioxide Anion Gap BUN Creatinine Est GFR ( Amer) Est GFR (Non-Af Amer) BUN/Creatinine Ratio Glucose POC Glucose (mg/dL) 359 H Calcium Laboratory Last Values WBC 11.1 10^3/uL (3.5-10.8) H 11/11/18 05:00 RBC 3.55 10^6 /uL (3.70-4.87) L 11/11/18 05:00 Hgb 10.1 g/dL (12.0-16.0) L 11/11/18 05:00 Hct 33 % (33-41) 11/11/18 05:00 MCV 94 fL (80-97) 11/11/18 05:00 MCH 28 pg (27-31) 11/11/18 05:00 MCHC 30 g/dL (31-36) L 11/11/18 05:00 RDW 22 % (10.5-15) H 11/11/18 05:00 Plt Count 257 10^3/uL (150-450) 11/11/18 05:00 MPV 7.9 fL (7.4-10.4) 11/11/18 05:00 Neut % (Auto) 74.5 % 11/11/18 05:00 Lymph % (Auto) 13.6 % 11/11/18 05:00 [place] % (Auto) 9.6 % 11/11/18 05:00 Eos % (Auto) 1.9 % 11/11/18 05:00 Baso % (Auto) 0.4 % 11/11/18 05:00 Absolute Neuts (auto) 8.2 10^3/ul (1.5-7.7) H 11/11/18 05:00 Absolute Lymphs (auto) 1.5 10^3/ul (1.0-4.8) 11/11/18 05:00 Absolute Monos (auto) 1.1 10^3/ul (0-0.8) H 11/11/18 05:00 Absolute Eos (auto) 0.2 10^3/ul (0-0.6) 11/11/18 05:00 Absolute Basos (auto) 0 10^3/ul (0-0.2) 11/11/18 05:00 Absolute Nucleated RBC 0 10^3/ul 11/11/18 05:00 Nucleated RBC % 0.1 11/11/18 05:00 Sodium 138 mmol/L (135-145) 11/11/18 05:00 Potassium 4.0 mmol/L (3.5-5.0) 11/11/18 05:00 Chloride 96 mmol/L (101-111) L 11/11/18 05:00 Carbon Dioxide 37 mmol/L (22-32) H 11/11/18 05:00 Anion Gap 5 mmol/L (2-11) 11/11/18 05:00 BUN 20 mg/dL (6-24) 11/11/18 05:00 Creatinine 0.64 mg/dL (0.51-0.95) 11/11/18 05:00 Est GFR ( Amer) 115.7 (>60) 11/11/18 05:00 Est GFR (Non-Af Amer) 95.6 (>60) 11/11/18 05:00 BUN/Creatinine Ratio 31.3 (8-20) H 11/11/18 05:00 Glucose 84 mg/dL (70-100) 11/11/18 05:00 POC Glucose (mg/dL) 359 mg/dL (70-100) H 11/11/18 16:51 Calcium 9.2 mg/dL (8.6-10.3) 11/11/18 05:00 - Objective Active Medications: Acetaminophen (Tylenol Tab*) 650 mg PO Q4H PRN PRN Reason: FEVER/PAIN Last Admin: 11/11/18 11:24 Dose: 650 mg Allopurinol (Zyloprim Tab*) 300 mg PO DAILY [facility] Last Admin: 11/11/18 09:43 Dose: 300 mg Alprazolam (Xanax Tab*) 0.25 mg PO BID PRN PRN Reason: ANXIETY Apixaban (Eliquis*) 2.5 mg PO BID [facility] Last Admin: 11/11/18 09:42 Dose: 2.5 mg Cetirizine HCl (Zyrtec*) 10 mg PO DAILY [facility]; Protocol Last Admin: 11/11/18 09:44 Dose: 10 mg Citalopram Hydrobromide (Celexa Tab*) 40 mg PO DAILY [facility] Last Admin: 11/11/18 09:45 Dose: 40 mg Device (Tiotropium Inhaler Device*) 1 each INH .USE w/ SPIRIVA CAPS [facility] Diltiazem HCl (Cardizem Cd Cap*) 180 mg PO DAILY [facility] Last Admin: 11/11/18 09:45 Dose: 180 mg Docusate Sodium (Colace Cap*) 100 mg PO BID [facility] Last Admin: 11/11/18 09:46 Dose: 100 mg Folic Acid (Folvite Tab*) 1 mg PO DAILY [facility] Last Admin: 11/11/18 09:44 Dose: 1 mg Furosemide (Lasix Tab*) 20 mg PO DAILY [facility] Last Admin: 11/11/18 09:43 Dose: 20 mg Gabapentin (Neurontin Cap(*)) 1,200 mg PO BEDTIME [facility] Last Admin: 11/10/18 21:17 Dose: 1,200 mg Gabapentin (Neurontin Cap(*)) 600 mg PO DAILY [facility] Last Admin: 11/11/18 09:44 Dose: 600 mg Gabapentin (Neurontin Cap(*)) 600 mg PO DAILY@1400 [facility] Last Admin: 11/11/18 16:46 Dose: 600 mg Glyburide (Diabeta Tab*) 2.5 mg PO BID [facility] Last Admin: 11/11/18 09:46 Dose: 2.5 mg Heparin Sodium (Porcine) (Heparin Flush Port (Ivad)) 5 ml FLUSH DAILY [facility]; Protocol Last Admin: 11/11/18 10:08 Dose: 5 ml Hydromorphone HCl (Dilaudid Tab*) 10 mg PO Q4H PRN PRN Reason: PAIN Last Admin: 11/11/18 12:36 Dose: 10 mg Insulin Human Lispro (Humalog*) 0 units SUBCUT ACHS [facility]; Protocol Last Admin: 11/11/18 12:29 Dose: 3 units Magnesium Oxide (Magox 400 Tab*) 400 mg PO DAILY [facility] Last Admin: 11/11/18 09:45 Dose: 400 mg Metformin HCl (Glucophage*) 500 mg PO BID [facility] Last Admin: 11/11/18 09:44 Dose: 500 mg Methadone HCl (Dolophine Tab*) 10 mg PO TID [facility] Last Admin: 11/11/18 16:46 Dose: 10 mg Mometasone Furoate (Asmanex 220 Mcg Mdi *) 1 puff INH BEDTIME [facility] Last Admin: 11/10/18 20:34 Dose: 1 puff Morphine Sulfate (Ms Contin(*)) 90 mg PO TID [facility] Last Admin: 11/11/18 16:44 Dose: 90 mg Ondansetron HCl (Zofran Inj*) 4 mg IV Q4H PRN PRN Reason: NAUSEA/VOMITING Polyethylene Glycol/Electrolytes (Miralax*) 17 gm PO DAILY PRN PRN Reason: CONSTIPATION Last Admin: 11/09/18 09:00 Dose: 17 gm Potassium Chloride (Klor-Con Liquid*) 20 meq PO DAILY [facility] Last Admin: 11/11/18 09:45 Dose: 20 meq Prednisone (Deltasone Tab*) 20 mg PO DAILY [facility] Last Admin: 11/11/18 11:24 Dose: 20 mg Tiotropium [place] (Spiriva Cap.Inh*) 1 cap INH DAILY [facility] Last Admin: 11/11/18 07:54 Dose: 1 cap Vital Signs: Vital Signs: Temp Pulse Resp BP Pulse Ox 99.0 F 78 18 147/64 94 11/11/18 10:57 11/11/18 10:57 11/11/18 16:46 11/11/18 10:57 11/11/18 10:57 Patient Weight: Weight 133.991 kg Intake and Output: Intake & Output 11/09/18 11/10/18 11/11/18 11/12/18 06:59 06:59 06:59 06:59 Intake Total 0 2975 1790 1080 Output Total 1400 2550 1450 Balance 650 550 431 3718 Weight 131.859 kg 133.991 kg 133.991 kg Intake: IV Fluids 20 20 Normal saline 20 20 Oral 2030 2955 1790 1080 Output: Urine 1400 2550 1450 Other: Estimated Void Small Small Small Date of Last Bowel unknown Movement # Bowel Movements 0 1 0 Estimated Stool Amount Medium Medium # Voids 3 1 3 ADLs: Meal Record Start: 11/08/18 16: 38 Freq: DAILY@0900,1400,1800 Status: Active Protocol: Created 11/08/18 16:38 System (Rec: 11/08/18 16:38 System MED-M01) Document 11/08/18 18:00 [id number] (Rec: 11/08/18 18:19 [id number] MED-C14) Document 11/09/18 09:00 [id number] (Rec: 11/09/18 09:25 [id number] MED-C11) Document 11/09/18 14:00 [id number] (Rec: 11/09/18 14:05 [id number] MED-C11) Document 11/09/18 17:58 [id number] (Rec: 11/09/18 17:58 [id number] MED-C02) Document 11/10/18 14:00 [id number] (Rec: 11/10/18 14:21 [id number] MED-C09) Document 11/10/18 18:00 [id number] (Rec: 11/10/18 18:50 [id number] MED-C11) Document 11/11/18 09:00 [id number] (Rec: 11/11/18 12:01 [id number] MED-C09) Document 11/11/18 14:00 [id number] (Rec: 11/11/18 17:21 [id number] MED-C09) Intake and Output Start: 11/08/18 16: 38 Freq: DAILY@0600,1400,2200 Status: Active Protocol: Created 11/08/18 16:38 System (Rec: 11/08/18 16:38 System MED-M01) Document 11/08/18 22:00 [id number] (Rec: 11/08/18 23:18 [id number] MED-C14) Document 11/09/18 02:23 [id number] (Rec: 11/09/18 02:23 [id number] MED-M03) Document 11/09/18 05:55 [id number] (Rec: 11/09/18 05:57 [id number] MED-C02) Document 11/09/18 13:31 [id number] (Rec: 11/09/18 13:32 [id number] MED-M01) Document 11/09/18 17:58 [id number] (Rec: 11/09/18 17:59 [id number] MED-C02) Document 11/09/18 22:00 [id number] (Rec: 11/09/18 23:37 [id number] MED-C05) Document 11/10/18 03:49 [id number] (Rec: 11/10/18 03:50 [id number] MED-C42) Document 11/10/18 05:19 [id number] (Rec: 11/10/18 05:20 [id number] MED-C42) Document 11/10/18 14:00 [id number] (Rec: 11/10/18 14:22 [id number] MED-C09) Document 11/10/18 14:34 [id number] (Rec: 11/10/18 14:34 [id number] MED-C09) Document 11/10/18 15:45 [id number] (Rec: 11/10/18 15:45 [id number] MED-C09) Document 11/10/18 18:51 [id number] (Rec: 11/10/18 18:52 [id number] MED-C11) Document 11/10/18 21:47 [id number] (Rec: 11/10/18 21:48 [id number] MED-C14) Document 11/11/18 05:39 [id number] (Rec: 11/11/18 05:41 [id number] MED-C07) Document 11/11/18 14:00 [id number] (Rec: 11/11/18 17:21 [id number] MED-C09) Head: Normal Ears/Nose/Mouth/Throat: NL Teeth, Lips, Gums Neck: NL Appearance and Movements; NL JVP Extremities: No Edema Neurological: Alert and Oriented x 3 - Assessment Assessment: 58 yo female with widely metastatic small cell lung ca who is eligible for hospice but currently not interested - Plan Consult Plan (MU): Palliative Plan: Long discussion with pt and her family(, cousin and sister in law). Pt aware of her diagnosis and the poor prognosis. Information about hospice and PATH/AIM program given as well as a brochure. Pt feels she is not ready to give up yet and doesn't want hospice. The bigger issue we discussed is she is alone the whole day her is at work. Explained if she has bone lesions she could fall and break her hip and be there all day on the floor. We talked about VNS and getting home health aides but they are worried about cost. Did recommend the nurse navigator at [facility] as a resource and family members said they may be able to help out. Pt should be going to doctor visits with other family members because she is not able to process the information and ask questions. We also discussed the MOLST form she doesn't want to be intubated but she is not sure about CPR she felt overloaded and didn't want to sign DNR/ DNI. Explained to pt and family MOLST and hospice sign on can be changed at any time. She is anxious to get the results of the bone scan. Talked about early and late goals of care but she is still hopeful that something might work even though she has been given a poor prognosis. - Time On Unit Date of Evaluation: 11/11/18 Hospice Consult Time in: 04:30 Hospice Consult Time Out: 06:00 Hospice Consult Time Total: 90 > 50% of Time Spend In Counseling or Coordinating Care: Yes
[2018-11-11] MEDS: Mometasone 220 MCG MDI INH SCH (19:36)
[2018-11-11] MEDS: Gabapentin CAP(*) 400 MG PO SCH (19:56)
[2018-11-11] MEDS ORDERED: HYDROmorphone TAB* 4 MG PO ONE (22:30)
[2018-11-12] MEDS: Acetaminophen TAB* 325 MG PO PRN ×3 (05:52→20:35)
[2018-11-12] MEDS: HYDROmorphone TAB* 4 MG PO PRN ×3 (05:52→20:34)
[2018-11-12 06:40] LABS: Albumin 3.6 g/dL (3.2-5.2); Albumin/Globulin Ratio 1.3 (1-3); BUN/Creatinine Ratio 37.3 (8-20); Calcium 8.8 mg/dL (8.6-10.3); EGFR African American 150.4 (>60); EGFR Non-African American 124.3 (>60); Globulin 2.8 g/dL (2-4); Magnesium 1.7 mg/dL (1.9-2.7); Potassium 3.8 mmol/L (3.5-5.0); Total Bilirubin 0.6 mg/dL (0.2-1.0); Total Protein 6.4 g/dL (6.4-8.9)
[2018-11-12 07:03] LABS: ABS Basophils 0.1 10^3/ul (0-0.2); ABS Eosinophils 0.2 10^3/ul (0-0.6); ABS Lymphocytes 1.3 10^3/ul (1.0-4.8); ABS Monocytes 1.1 10^3/ul (0-0.8); ABS Neutrophils 7.8 10^3/ul (1.5-7.7); ABS Nucleated RBC 0 10^3/ul; Eosinophil % 2.1 %; Hematocrit 36 % (33-41); Lymphocyte % 12.6 %; Mean Corpuscular HGB Conc 31 g/dL (31-36); Mean Corpuscular Hemoglobin 29 pg (27-31); Mean Corpuscular Volume 93 fL (80-97); Mean Platelet Volume 8.3 fL (7.4-10.4); Nucleated Red Blood Cells % 0.3; Platelet Count 275 10^3/uL (150-450); Red Blood Count 3.83 10^6 /uL (3.70-4.87); Red Cell Distribution Width 22 % (10.5-15); White Blood Count 10.6 10^3/uL (3.5-10.8)
[2018-11-12] MEDS: Tiotropium CAP.INH* CAP.INH/18 MCG (USE ORDER SET !) INH SCH (07:45)
[2018-11-12] MEDS: Insulin LISPRO* 1 UNITS UNIT SUBCUT SCH ×4 (08:00→20:51)
[2018-11-12] MEDS: Morphine TAB Extended Release (*) 30 MG TAB.ER PO SCH ×3 (09:14→20:33)
[2018-11-12] MEDS: Furosemide TAB* 20 MG PO SCH (09:16)
[2018-11-12] MEDS: Apixaban* 2.5 MG TAB PO SCH ×2 (09:16→20:36)
[2018-11-12] MEDS: Folic Acid TAB* 1 MG PO SCH (09:16)
[2018-11-12] MEDS: Gabapentin CAP(*) 300 MG PO SCH ×2 (09:18→12:56)
[2018-11-12] MEDS: Cetirizine* 10 MG TAB PO SCH (09:19)
[2018-11-12] MEDS: predniSONE TAB* 20 MG PO SCH (09:20)
[2018-11-12] MEDS: Methadone TAB* 10 MG PO SCH ×3 (09:20→20:36)
[2018-11-12] MEDS: Diltiazem CD CAP* 180 MG PO SCH (09:20)
[2018-11-12] MEDS: metFORMIN* 500 MG TAB PO SCH ×2 (09:20→20:36)
[2018-11-12] MEDS: Citalopram TAB* 40 MG PO SCH (09:20)
[2018-11-12] MEDS: Allopurinol TAB* 300 MG PO SCH (09:20)
[2018-11-12] MEDS: Docusate CAP* 100 MG PO SCH ×2 (09:20→20:34)
[2018-11-12] MEDS: glyBURIDE TAB* 2.5 MG PO SCH ×2 (09:20→20:35)
[2018-11-12] MEDS: Potassium Chloride LIQUID* 20 MEQ PACKET PO SCH (09:21)
[2018-11-12] MEDS: Magnesium Oxide TAB* 400 MG PO SCH (09:21)
--- NOTE | 2018-11-12 10:27 | PN ---
Progress Note - Progress Note Date of Service: 11/12/18 SOAP: Subjective: []Feeling a little better today. Pain is more of an ache and less severe. Did require one extra dose of dilaudid overnight, but this AM feels good. Admits she can't keep information straight, but family very support and "keeps it all in order." [place] frustrated by palliative consult yesterday, "it was all about hospice." Medications: Acetaminophen (Tylenol Tab*) 650 mg PO Q4H PRN PRN Reason: FEVER/PAIN Last Admin: 11/12/18 05:52 Dose: 650 mg Allopurinol (Zyloprim Tab*) 300 mg PO DAILY [facility] Last Admin: 11/12/18 09:20 Dose: 300 mg Alprazolam (Xanax Tab*) 0.25 mg PO BID PRN PRN Reason: ANXIETY Apixaban (Eliquis*) 2.5 mg PO BID [facility] Last Admin: 11/12/18 09:16 Dose: 2.5 mg Cetirizine HCl (Zyrtec*) 10 mg PO DAILY [facility]; Protocol Last Admin: 11/12/18 09:19 Dose: 10 mg Citalopram Hydrobromide (Celexa Tab*) 40 mg PO DAILY [facility] Last Admin: 11/12/18 09:20 Dose: 40 mg Device (Tiotropium Inhaler Device*) 1 each INH .USE w/ SPIRIVA CAPS [facility] Diltiazem HCl (Cardizem Cd Cap*) 180 mg PO DAILY [facility] Last Admin: 11/12/18 09:20 Dose: 180 mg Docusate Sodium (Colace Cap*) 100 mg PO BID [facility] Last Admin: 11/12/18 09:20 Dose: 100 mg Folic Acid (Folvite Tab*) 1 mg PO DAILY [facility] Last Admin: 11/12/18 09:16 Dose: 1 mg Furosemide (Lasix Tab*) 20 mg PO DAILY [facility] Last Admin: 11/12/18 09:16 Dose: 20 mg Gabapentin (Neurontin Cap(*)) 1,200 mg PO BEDTIME [facility] Last Admin: 11/11/18 19:56 Dose: 1,200 mg Gabapentin (Neurontin Cap(*)) 600 mg PO DAILY [facility] Last Admin: 11/12/18 09:18 Dose: Not Given Gabapentin (Neurontin Cap(*)) 600 mg PO DAILY@1400 [facility] Last Admin: 11/11/18 16:46 Dose: 600 mg Glyburide (Diabeta Tab*) 2.5 mg PO BID [facility] Last Admin: 11/12/18 09:20 Dose: 2.5 mg Heparin Sodium (Porcine) (Heparin Flush Port (Ivad)) 5 ml FLUSH DAILY [facility]; Protocol Last Admin: 11/12/18 09:22 Dose: 5 ml Hydromorphone HCl (Dilaudid Tab*) 10 mg PO Q4H PRN PRN Reason: PAIN Last Admin: 11/12/18 05:52 Dose: 10 mg Insulin Human Lispro (Humalog*) 0 units SUBCUT ACHS [facility]; Protocol Last Admin: 11/12/18 08:00 Dose: Not Given Magnesium Oxide (Magox 400 Tab*) 400 mg PO DAILY [facility] Last Admin: 11/12/18 09:21 Dose: 400 mg Metformin HCl (Glucophage*) 500 mg PO BID [facility] Last Admin: 11/12/18 09:20 Dose: 500 mg Methadone HCl (Dolophine Tab*) 10 mg PO TID [facility] Last Admin: 11/12/18 09:20 Dose: 10 mg Mometasone Furoate (Asmanex 220 Mcg Mdi *) 1 puff INH BEDTIME [facility] Last Admin: 11/11/18 19:36 Dose: 1 puff Morphine Sulfate (Ms Contin(*)) 90 mg PO TID [facility] Last Admin: 11/12/18 09:14 Dose: 90 mg Ondansetron HCl (Zofran Inj*) 4 mg IV Q4H PRN PRN Reason: NAUSEA/VOMITING Polyethylene Glycol/Electrolytes (Miralax*) 17 gm PO DAILY PRN PRN Reason: CONSTIPATION Last Admin: 11/09/18 09:00 Dose: 17 gm Potassium Chloride (Klor-Con Liquid*) 20 meq PO DAILY [facility] Last Admin: 11/12/18 09:21 Dose: 20 meq Prednisone (Deltasone Tab*) 20 mg PO DAILY [facility] Last Admin: 11/12/18 09:20 Dose: 20 mg Tiotropium [place] (Spiriva Cap.Inh*) 1 cap INH DAILY [facility] Last Admin: 11/12/18 07:45 Dose: 1 cap Objective: [] Vital Signs Temp Pulse Resp BP Pulse Ox 99.0 F 78 16 130/61 93 11/12/18 09:41 11/12/18 09:41 11/12/18 09:41 11/12/18 09:41 11/12/18 09:41 A&Ox3, PERRLA, EOM, will get confused but re-orients quickly Involved in discussion and communicating effectively HRR, S1S2 LS dim. to bilat. bases +BS, obese Scattered psoriatic skin lesions to arms Laboratory Results - last 24 hr 11/11/18 11/11/18 11/11/18 11:28 16:51 21:42 WBC RBC Hgb Hct MCV MCH MCHC RDW Plt Count MPV Neut % (Auto) Lymph % (Auto) [place] % (Auto) Eos % (Auto) Baso % (Auto) Absolute Neuts (auto) Absolute Lymphs (auto) Absolute Monos (auto) Absolute Eos (auto) Absolute Basos (auto) Absolute Nucleated RBC Nucleated RBC % Sodium Potassium Chloride Carbon Dioxide Anion Gap BUN Creatinine Est GFR ( Amer) Est GFR (Non-Af Amer) BUN/Creatinine Ratio Glucose POC Glucose (mg/dL) 196 H 359 H 272 H Calcium Magnesium Total Bilirubin AST ALT Alkaline Phosphatase Total Protein Albumin Globulin Albumin/Globulin Ratio 11/12/18 11/12/18 11/12/18 06:03 06:03 07:48 WBC 10.6 RBC 3.83 Hgb 11.0 L Hct 36 MCV 93 MCH 29 MCHC 31 RDW 22 H Plt Count 275 MPV 8.3 Neut % (Auto) 73.9 Lymph % (Auto) 12.6 [place] % (Auto) 10.7 Eos % (Auto) 2.1 Baso % (Auto) 0.7 Absolute Neuts (auto) 7.8 H Absolute Lymphs (auto) 1.3 Absolute Monos (auto) 1.1 H Absolute Eos (auto) 0.2 Absolute Basos (auto) 0.1 Absolute Nucleated RBC 0 Nucleated RBC % 0.3 Sodium 141 Potassium 3.8 Chloride 97 L Carbon Dioxide 37 H Anion Gap 7 BUN 19 Creatinine 0.51 Est GFR ( Amer) 150.4 Est GFR (Non-Af Amer) 124.3 BUN/Creatinine Ratio 37.3 H Glucose 85 POC Glucose (mg/dL) 72 Calcium 8.8 Magnesium 1.7 L Total Bilirubin 0.60 AST 32 ALT 42 Alkaline Phosphatase 154 H Total Protein 6.4 Albumin 3.6 Globulin 2.8 Albumin/Globulin Ratio 1.3 Assessment: []58 yo F w recurrent widely metastatic small cell lung cancer 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 Plan: 1. SCLC with APPLICATION COUNSELOR mets: progression shortly after completing saxman based therapy concerning for aggressive disease - Reviewed prognosis of 6 mo., survival may improve with tx., however side effects may limit QOL. Long discussion with pt. and family regarding this reality and encouraged them to start conversation about goals of therapy and anything she may want to do in the time that she has left. Hospice is an option , though she remains a candidate for therapy, concern remains weighing benefit with possible SEs. - Bone scan reveals inflammatory process at shoulder making immunotherapy less attractive, I would recommend considering chemotherapy (Topotecan vs. Paclitaxel ), but will defer this discussion to outpatient f/u - Palliative consult yesterday, reviewed code discussion and at this time both she and her are leaning toward DNR/DNI, but want to discuss further - Completing WBRT today, MRI f/u 12/20 with [facility] - Completes RT to hip 11/19 2. Pain: combination of metastatic disease and psoriatic arthritis - Patient states subjective improvement to an ache since starting Methadone and steroids yesterday - Cont. Methadone 10 mg po TID (QTc 448 on 10/28/18), consider titrating at 48- 72 hrs - Continue MS contin 90 mg TID (increased to 90 mg BID on the ), will decrease tomorrow if pain remains stable - Continue dilaudid 10 mg PO q4 hrs PRN pain - Cont 600/600/1200 of gabapentin - Cont bowel regimen - Cont. Prednisone 20 mg po daily 4. DM: cont metformin and glyburide, watch fingersticks closely with Prednisone. 5. Eliquis for DVT prophylaxis (on d/t A.Fib) 6. PT eval for discharge today Dispo: hopeful for d/c in next 1-2 days depending on pain control and ambulatory ability []
[2018-11-12] MEDS: Mometasone 220 MCG MDI INH SCH (20:11)
[2018-11-12] MEDS: Gabapentin CAP(*) 400 MG PO SCH (20:33)
[2018-11-13] MEDS: HYDROmorphone TAB* 4 MG PO PRN ×4 (03:27→18:22)
[2018-11-13] MEDS: Tiotropium CAP.INH* CAP.INH/18 MCG (USE ORDER SET !) INH SCH (07:52)
[2018-11-13] MEDS: Insulin LISPRO* 1 UNITS UNIT SUBCUT SCH ×4 (08:06→23:15)
[2018-11-13] MEDS: Acetaminophen TAB* 325 MG PO PRN (09:00)
--- NOTE | 2018-11-13 09:55 | PN ---
Progress Note - Progress Note Date of Service: 11/13/18 SOAP: Subjective: []Still having a fair amount of pain and requiring IV dilaudid. Today states her ribs really hurt bilat. with deep breaths. Working with PT, however needs to do 8 steps to get into home and yesterday was unable to get up on one. - has friends building a ramp this weekend, but per her report it will not be done until Saturday 11/18. Wants to be DNR/DNI, does not want a feeding tube. Medications: Acetaminophen (Tylenol Tab*) 650 mg PO Q4H PRN PRN Reason: FEVER/PAIN Last Admin: 11/13/18 09:00 Dose: 650 mg Allopurinol (Zyloprim Tab*) 300 mg PO DAILY [facility] Last Admin: 11/12/18 09:20 Dose: 300 mg Alprazolam (Xanax Tab*) 0.25 mg PO BID PRN PRN Reason: ANXIETY Apixaban (Eliquis*) 2.5 mg PO BID [facility] Last Admin: 11/12/18 20:36 Dose: 2.5 mg Cetirizine HCl (Zyrtec*) 10 mg PO DAILY [facility]; Protocol Last Admin: 11/12/18 09:19 Dose: 10 mg Citalopram Hydrobromide (Celexa Tab*) 40 mg PO DAILY [facility] Last Admin: 11/12/18 09:20 Dose: 40 mg Device (Tiotropium Inhaler Device*) 1 each INH .USE w/ SPIRIVA CAPS [facility] Diltiazem HCl (Cardizem Cd Cap*) 180 mg PO DAILY [facility] Last Admin: 11/12/18 09:20 Dose: 180 mg Docusate Sodium (Colace Cap*) 100 mg PO BID [facility] Last Admin: 11/12/18 20:34 Dose: 100 mg Folic Acid (Folvite Tab*) 1 mg PO DAILY [facility] Last Admin: 11/12/18 09:16 Dose: 1 mg Furosemide (Lasix Tab*) 20 mg PO DAILY [facility] Last Admin: 11/12/18 09:16 Dose: 20 mg Gabapentin (Neurontin Cap(*)) 1,200 mg PO BEDTIME [facility] Last Admin: 11/12/18 20:33 Dose: 1,200 mg Gabapentin (Neurontin Cap(*)) 600 mg PO DAILY [facility] Last Admin: 11/12/18 09:18 Dose: Not Given Gabapentin (Neurontin Cap(*)) 600 mg PO DAILY@1400 [facility] Last Admin: 11/12/18 12:56 Dose: 600 mg Glyburide (Diabeta Tab*) 2.5 mg PO BID [facility] Last Admin: 11/12/18 20:35 Dose: 2.5 mg Heparin Sodium (Porcine) (Heparin Flush Port (Ivad)) 5 ml FLUSH DAILY [facility]; Protocol Last Admin: 11/12/18 09:22 Dose: 5 ml Hydromorphone HCl (Dilaudid Tab*) 10 mg PO Q4H PRN PRN Reason: PAIN Last Admin: 11/13/18 09:00 Dose: 10 mg Insulin Human Lispro (Humalog*) 0 units SUBCUT ACHS [facility]; Protocol Last Admin: 11/13/18 08:06 Dose: Not Given Magnesium Oxide (Magox 400 Tab*) 400 mg PO DAILY [facility] Last Admin: 11/12/18 09:21 Dose: 400 mg Metformin HCl (Glucophage*) 500 mg PO BID [facility] Last Admin: 11/12/18 20:36 Dose: 500 mg Methadone HCl (Dolophine Tab*) 10 mg PO TID [facility] Last Admin: 11/12/18 20:36 Dose: 10 mg Mometasone Furoate (Asmanex 220 Mcg Mdi *) 1 puff INH BEDTIME [facility] Last Admin: 11/12/18 20:11 Dose: 1 puff Morphine Sulfate (Ms Contin(*)) 90 mg PO TID [facility] Last Admin: 11/12/18 20:33 Dose: 90 mg Ondansetron HCl (Zofran Inj*) 4 mg IV Q4H PRN PRN Reason: NAUSEA/VOMITING Polyethylene Glycol/Electrolytes (Miralax*) 17 gm PO DAILY PRN PRN Reason: CONSTIPATION Last Admin: 11/09/18 09:00 Dose: 17 gm Potassium Chloride (Klor-Con Liquid*) 20 meq PO DAILY [facility] Last Admin: 11/12/18 09:21 Dose: 20 meq Prednisone (Deltasone Tab*) 20 mg PO DAILY [facility] Last Admin: 11/12/18 09:20 Dose: 20 mg Tiotropium [place] (Spiriva Cap.Inh*) 1 cap INH DAILY [facility] Last Admin: 11/13/18 07:52 Dose: 1 cap Objective: [] Vital Signs Temp Pulse Resp BP Pulse Ox 99.0 F 66 22 149/63 91 11/13/18 07:43 11/13/18 07:53 11/13/18 09:00 11/13/18 07:43 11/13/18 07:53 A&Ox3, EOMI, GARCIA, good strength=bilat. HRR, S1S2 LS dim. to bases, no cough noted +BS, abd. soft and round +PP=bilat., no edema noted Shiny skin to LEs Scattered fine erythematous blotchy psoriatic rash to arms Laboratory Results - last 24 hr 11/12/18 11/12/18 11/12/18 12:10 17:10 20:39 POC Glucose (mg/dL) 140 H 347 H 330 H 11/13/18 08:03 POC Glucose (mg/dL) 93 Assessment: []58 yo female with progressive SCLC now sp WBRT and completing palliative RT to right hip, presented with uncontrolled pain slowly improving with addition of Methadone and steroids (as pain r/t to both bone mets and underlying psoriatic arthritis). At this time pain improved, but still requiring IV narcotics as we titrate new long acting meds; in addition her ambulatory ability is very limited. Plan: []1. Pain: combination of metastatic disease and psoriatic arthritis - Increase Methadone to 20 mg in AM, 10 mg mid-day, 10 mg HS (QTc 448 on 10/28/18 ), titration q 48-72 hrs - Decrease MS contin to 60 mg TID - Continue dilaudid 10 mg IV q4 hrs PRN pain while we tritrate, and hopefully can change to PO in next day or so - Cont 600/600/1200 of gabapentin - Cont bowel regimen - Cont. Prednisone 20 mg po daily indefinitely d/t PA and need to avoid mtx. for chemo 2. SCLC: extensive discussion regarding condition, disease, and prognosis this admission - s/p WBRT, completing palliative RT to hip 11/19 - plan palliative Topotecan 1.5 mg/m2/day D1-5 q21 days but will not start until 11/25 at the earliest - MRI brain with RadOnc 12/20/18, full restaging after 3 cycles of chemo - DNR/DNI MOLST form completed today 3. DM: elevated FS with steroids, will start low dose lantus daily, cont. PO anti-diabetics as well 4. Eliquis for DVT prophylaxis (on d/t A.Fib) 5. Weakness: PT working with daily Dispo: hopeful for d/c in next couple days depending on pain control and ambulatory ability
[2018-11-13] MEDS: metFORMIN* 500 MG TAB PO SCH ×2 (10:31→22:30)
[2018-11-13] MEDS: Gabapentin CAP(*) 300 MG PO SCH ×2 (10:32→14:07)
[2018-11-13] MEDS: Diltiazem CD CAP* 180 MG PO SCH (10:32)
[2018-11-13] MEDS: Cetirizine* 10 MG TAB PO SCH (10:34)
[2018-11-13] MEDS: Citalopram TAB* 40 MG PO SCH (10:34)
[2018-11-13] MEDS: Magnesium Oxide TAB* 400 MG PO SCH (10:34)
[2018-11-13] MEDS: glyBURIDE TAB* 2.5 MG PO SCH ×2 (10:34→22:30)
[2018-11-13] MEDS: Docusate CAP* 100 MG PO SCH ×2 (10:35→22:29)
[2018-11-13] MEDS: Allopurinol TAB* 300 MG PO SCH (10:35)
[2018-11-13] MEDS: Apixaban* 2.5 MG TAB PO SCH ×2 (10:35→22:29)
[2018-11-13] MEDS: Potassium Chloride LIQUID* 20 MEQ PACKET PO SCH (10:35)
[2018-11-13] MEDS: predniSONE TAB* 20 MG PO SCH (10:35)
[2018-11-13] MEDS: Folic Acid TAB* 1 MG PO SCH (10:35)
[2018-11-13] MEDS: Furosemide TAB* 20 MG PO SCH (10:35)
[2018-11-13] MEDS: Methadone TAB* 10 MG PO SCH ×4 (10:44→23:14)
[2018-11-13] MEDS: Morphine TAB Extended Release (*) 30 MG TAB.ER PO SCH ×3 (12:53→22:27)
[2018-11-13] MEDS: Nystatin CREAM* 15 GM TUBE TOPICAL SCH ×2 (14:13→23:19)
[2018-11-13] MEDS: Mometasone 220 MCG MDI INH SCH (19:48)
[2018-11-13] MEDS: Gabapentin CAP(*) 400 MG PO SCH (22:25)
[2018-11-14] MEDS: Acetaminophen TAB* 325 MG PO PRN (04:21)
[2018-11-14] MEDS: HYDROmorphone TAB* 4 MG PO PRN (04:22)
[2018-11-14] MEDS: Tiotropium CAP.INH* CAP.INH/18 MCG (USE ORDER SET !) INH SCH (09:39)
[2018-11-14] MEDS: Insulin LISPRO* 1 UNITS UNIT SUBCUT SCH ×4 (09:57→22:40)
[2018-11-14] MEDS: Insulin GLARGINE(*) 1 UNITS UNIT SUBCUT SCH (10:08)
[2018-11-14] MEDS: Methadone TAB* 10 MG PO SCH ×3 (10:09→22:39)
[2018-11-14] MEDS: Potassium Chloride LIQUID* 20 MEQ PACKET PO SCH (10:09)
[2018-11-14] MEDS: Magnesium Oxide TAB* 400 MG PO SCH (10:11)
[2018-11-14] MEDS: metFORMIN* 500 MG TAB PO SCH ×2 (10:11→21:38)
[2018-11-14] MEDS: Morphine TAB Extended Release (*) 30 MG TAB.ER PO SCH ×2 (10:11→21:38)
[2018-11-14] MEDS: predniSONE TAB* 20 MG PO SCH (10:11)
[2018-11-14] MEDS: Docusate CAP* 100 MG PO SCH ×2 (10:12→21:38)
[2018-11-14] MEDS: Folic Acid TAB* 1 MG PO SCH (10:12)
[2018-11-14] MEDS: Gabapentin CAP(*) 300 MG PO SCH ×2 (10:12→17:27)
[2018-11-14] MEDS: glyBURIDE TAB* 2.5 MG PO SCH ×2 (10:12→21:38)
[2018-11-14] MEDS: Furosemide TAB* 20 MG PO SCH (10:12)
[2018-11-14] MEDS: Apixaban* 2.5 MG TAB PO SCH ×2 (10:12→21:37)
[2018-11-14] MEDS: Citalopram TAB* 40 MG PO SCH (10:13)
[2018-11-14] MEDS: Cetirizine* 10 MG TAB PO SCH (10:13)
[2018-11-14] MEDS: Allopurinol TAB* 300 MG PO SCH (10:13)
[2018-11-14] MEDS: Diltiazem CD CAP* 180 MG PO SCH (10:13)
--- NOTE | 2018-11-14 11:44 | PN ---
Progress Note - Progress Note Date of Service: 11/14/18 SOAP: Subjective: [Mari reports that she continues to slowly improve but remains uncomfortable. Continuing to work with PT. Reports that she continues to cough with thick sputum and her ribs are sore because of it.] Objective: [ Laboratory Results - last 24 hr 11/13/18 11/13/18 11/13/18 12:04 16:52 22:37 POC Glucose (mg/dL) 185 H 274 H 255 H 11/14/18 07:56 POC Glucose (mg/dL) 104 H Acetaminophen (Tylenol Tab*) 650 mg PO Q4H PRN PRN Reason: FEVER/PAIN Last Admin: 11/14/18 04:21 Dose: 650 mg Allopurinol (Zyloprim Tab*) 300 mg PO DAILY [facility] Last Admin: 11/14/18 10:13 Dose: 300 mg Alprazolam (Xanax Tab*) 0.25 mg PO BID PRN PRN Reason: ANXIETY Apixaban (Eliquis*) 2.5 mg PO BID [facility] Last Admin: 11/14/18 10:12 Dose: 2.5 mg Cetirizine HCl (Zyrtec*) 10 mg PO DAILY [facility]; Protocol Last Admin: 11/14/18 10:13 Dose: 10 mg Citalopram Hydrobromide (Celexa Tab*) 40 mg PO DAILY [facility] Last Admin: 11/14/18 10:13 Dose: 40 mg Device (Tiotropium Inhaler Device*) 1 each INH .USE w/ SPIRIVA CAPS [facility] Diltiazem HCl (Cardizem Cd Cap*) 180 mg PO DAILY [facility] Last Admin: 11/14/18 10:13 Dose: 180 mg Docusate Sodium (Colace Cap*) 100 mg PO BID [facility] Last Admin: 11/14/18 10:12 Dose: 100 mg Folic Acid (Folvite Tab*) 1 mg PO DAILY [facility] Last Admin: 11/14/18 10:12 Dose: 1 mg Furosemide (Lasix Tab*) 20 mg PO DAILY [facility] Last Admin: 11/14/18 10:12 Dose: 20 mg Gabapentin (Neurontin Cap(*)) 1,200 mg PO BEDTIME [facility] Last Admin: 11/13/18 22:25 Dose: 1,200 mg Gabapentin (Neurontin Cap(*)) 600 mg PO DAILY [facility] Last Admin: 11/14/18 10:12 Dose: 600 mg Gabapentin (Neurontin Cap(*)) 600 mg PO DAILY@1400 [facility] Last Admin: 11/13/18 14:07 Dose: 600 mg Glyburide (Diabeta Tab*) 2.5 mg PO BID [facility] Last Admin: 11/14/18 10:12 Dose: 2.5 mg Guaifenesin (Mucinex*) 1,200 mg PO BID [facility] Heparin Sodium (Porcine) (Heparin Flush Port (Ivad)) 5 ml FLUSH DAILY [facility]; Protocol Last Admin: 11/14/18 05:20 Dose: 5 ml Hydromorphone HCl (Dilaudid Inj1s*) 2 mg IV SLOW PU Q2H PRN PRN Reason: PAIN Insulin Glargine (Lantus(*)) 10 units SUBCUT Q24H [facility] Last Admin: 11/14/18 10:08 Dose: 10 units Insulin Human Lispro (Humalog*) 0 units SUBCUT ACHS [facility]; Protocol Last Admin: 11/14/18 09:57 Dose: Not Given Magnesium Oxide (Magox 400 Tab*) 400 mg PO DAILY [facility] Last Admin: 11/14/18 10:11 Dose: 400 mg Metformin HCl (Glucophage*) 500 mg PO BID [facility] Last Admin: 11/14/18 10:11 Dose: 500 mg Methadone HCl (Dolophine Tab*) 20 mg PO QAM [facility] Last Admin: 11/14/18 10:09 Dose: 20 mg Methadone HCl (Dolophine Tab*) 10 mg PO 1400,2100 [facility] Last Admin: 11/13/18 23:14 Dose: 10 mg Mometasone Furoate (Asmanex 220 Mcg Mdi *) 1 puff INH BEDTIME [facility] Last Admin: 11/13/18 19:48 Dose: 1 puff Morphine Sulfate (Ms Contin(*)) 60 mg PO BID [facility] Nystatin (Nystatin Cream*) 1 applic TOPICAL TID [facility] Last Admin: 11/13/18 23:19 Dose: Not Given Ondansetron HCl (Zofran Inj*) 4 mg IV Q4H PRN PRN Reason: NAUSEA/VOMITING Polyethylene Glycol/Electrolytes (Miralax*) 17 gm PO DAILY PRN PRN Reason: CONSTIPATION Last Admin: 11/09/18 09:00 Dose: 17 gm Potassium Chloride (Klor-Con Liquid*) 20 meq PO DAILY [facility] Last Admin: 11/14/18 10:09 Dose: 20 meq Prednisone (Deltasone Tab*) 20 mg PO DAILY [facility] Last Admin: 11/14/18 10:11 Dose: 20 mg Tiotropium [place] (Spiriva Cap.Inh*) 1 cap INH DAILY [facility] Last Admin: 11/14/18 09:39 Dose: 1 cap Vital Signs: Temp Pulse Resp BP Pulse Ox 98.3 F 50 18 127/66 92 11/14/18 07:39 11/14/18 09:40 11/14/18 10:12 11/14/18 07:39 11/14/18 09:40 Exam: Gen: Chronically ill 58 yo female who appears mildly uncomfortable HEENT: MMM CV: RRR, no m/r/g Resp: CTA, no w/c/r Abd: soft, non TTP Ext: trace to no edema Skin: multiple small plaques over skin of all 4 extremities] [Assessment: []58 yo female with progressive SCLC now sp WBRT and completing palliative RT to right hip, presented with uncontrolled pain slowly improving with addition of Methadone and steroids (as pain r/t to both bone mets and underlying psoriatic arthritis). At this time pain improved, but still requiring IV narcotics as we titrate new long acting meds; in addition her ambulatory ability is very limited. Plan: []1. Pain: combination of metastatic disease and psoriatic arthritis - Cont Methadone to 20 mg in AM, 10 mg mid-day, 10 mg HS (QTc 448 on 10/28/18), titration q 48-72 hrs - Cont MS contin to 60 mg TID, cont to titrate down as methadone is titrated up - Continue dilaudid 2 mg IV q2 hrs PRN pain while we titrate oral long acting medications - Cont 600/600/1200 of gabapentin - Cont bowel regimen - Cont. Prednisone 20 mg po daily indefinitely d/t PA and need to avoid mtx. for chemo 2. SCLC: extensive discussion regarding condition, disease, and prognosis this admission - s/p WBRT, completing palliative RT to hip 11/19 - plan palliative Topotecan 1.5 mg/m2/day D1-5 q21 days but will not start until 11/25 at the earliest - MRI brain with RadOnc 12/20/18, full restaging after 3 cycles of chemo 3. DM: elevated FS with steroids - started 10U lantus daily, cont. PO hypoglycemic agents as well 4. Cough - CXR WNL x 2 - will start mucinex 4. Eliquis for DVT prophylaxis (on d/t A.Fib) 5. Weakness: PT working with daily 6. DNR/DNI Dispo: plan for dc home within the next several days]
[2018-11-14] MEDS: Nystatin CREAM* 15 GM TUBE TOPICAL SCH ×2 (14:35→17:33)
[2018-11-14] MEDS: guaiFENesin ER TAB 600 MG PO SCH ×2 (14:41→21:35)
[2018-11-14] MEDS: HYDROmorphone INJ1* 1 MG/ML SYRINGE IV SLOW PU PRN (14:41)
[2018-11-14] MEDS ORDERED: Morphine TAB Extended Release (*) 30 MG TAB.ER PO ONE (16:10)
[2018-11-14] MEDS: Mometasone 220 MCG MDI INH SCH (19:58)
[2018-11-14] MEDS ORDERED: Morphine TAB Extended Release (*) 30 MG TAB.ER PO SCH (21:00)
[2018-11-14] MEDS: Gabapentin CAP(*) 400 MG PO SCH (21:36)
[2018-11-15] MEDS: Nystatin CREAM* 15 GM TUBE TOPICAL SCH ×4 (03:09→21:47)
[2018-11-15] MEDS: Tiotropium CAP.INH* CAP.INH/18 MCG (USE ORDER SET !) INH SCH (07:29)
[2018-11-15] MEDS: Potassium Chloride LIQUID* 20 MEQ PACKET PO SCH (07:55)
[2018-11-15] MEDS: guaiFENesin ER TAB 600 MG PO SCH ×2 (07:55→20:27)
[2018-11-15] MEDS: HYDROmorphone INJ1* 1 MG/ML SYRINGE IV SLOW PU PRN ×3 (07:55→18:14)
[2018-11-15] MEDS: Furosemide TAB* 20 MG PO SCH (07:56)
[2018-11-15] MEDS: Folic Acid TAB* 1 MG PO SCH (07:56)
[2018-11-15] MEDS: metFORMIN* 500 MG TAB PO SCH ×2 (07:56→20:28)
[2018-11-15] MEDS: Apixaban* 2.5 MG TAB PO SCH ×2 (07:56→20:27)
[2018-11-15] MEDS: Cetirizine* 10 MG TAB PO SCH (07:56)
[2018-11-15] MEDS: Citalopram TAB* 40 MG PO SCH (07:56)
[2018-11-15] MEDS: Insulin GLARGINE(*) 1 UNITS UNIT SUBCUT SCH (07:57)
[2018-11-15] MEDS: Gabapentin CAP(*) 300 MG PO SCH ×2 (07:57→13:49)
[2018-11-15] MEDS: Docusate CAP* 100 MG PO SCH ×2 (07:57→20:28)
[2018-11-15] MEDS: Magnesium Oxide TAB* 400 MG PO SCH (07:57)
[2018-11-15] MEDS: predniSONE TAB* 20 MG PO SCH (07:57)
[2018-11-15] MEDS: Diltiazem CD CAP* 180 MG PO SCH (07:58)
[2018-11-15] MEDS: glyBURIDE TAB* 2.5 MG PO SCH ×2 (07:58→20:28)
[2018-11-15] MEDS: Insulin LISPRO* 1 UNITS UNIT SUBCUT SCH ×4 (07:58→20:28)
[2018-11-15] MEDS: Morphine TAB Extended Release (*) 30 MG TAB.ER PO SCH ×2 (07:58→20:27)
[2018-11-15] MEDS: Allopurinol TAB* 300 MG PO SCH (07:58)
--- NOTE | 2018-11-15 11:40 | PN ---
Progress Note - Progress Note Date of Service: 11/15/18 SOAP: Subjective: [Reports that she is feeling better. Able to ambulate with less difficulty. Plaques on skin seem to be improving as well. Feeling very tired and occasionally confused. She finds that she will occasionally awake from a nap talking to someone who isn't there.] Objective: [ Acetaminophen (Tylenol Tab*) 650 mg PO Q4H PRN PRN Reason: FEVER/PAIN Last Admin: 11/14/18 04:21 Dose: 650 mg Allopurinol (Zyloprim Tab*) 300 mg PO DAILY [facility] Last Admin: 11/15/18 07:58 Dose: 300 mg Alprazolam (Xanax Tab*) 0.25 mg PO BID PRN PRN Reason: ANXIETY Apixaban (Eliquis*) 2.5 mg PO BID [facility] Last Admin: 11/15/18 07:56 Dose: 2.5 mg Cetirizine HCl (Zyrtec*) 10 mg PO DAILY [facility]; Protocol Last Admin: 11/15/18 07:56 Dose: 10 mg Citalopram Hydrobromide (Celexa Tab*) 40 mg PO DAILY [facility] Last Admin: 11/15/18 07:56 Dose: 40 mg Device (Tiotropium Inhaler Device*) 1 each INH .USE w/ SPIRIVA CAPS [facility] Diltiazem HCl (Cardizem Cd Cap*) 180 mg PO DAILY [facility] Last Admin: 11/15/18 07:58 Dose: 180 mg Docusate Sodium (Colace Cap*) 100 mg PO BID [facility] Last Admin: 11/15/18 07:57 Dose: 100 mg Folic Acid (Folvite Tab*) 1 mg PO DAILY [facility] Last Admin: 11/15/18 07:56 Dose: 1 mg Furosemide (Lasix Tab*) 20 mg PO DAILY [facility] Last Admin: 11/15/18 07:56 Dose: 20 mg Gabapentin (Neurontin Cap(*)) 1,200 mg PO BEDTIME [facility] Last Admin: 11/14/18 21:36 Dose: 1,200 mg Gabapentin (Neurontin Cap(*)) 600 mg PO DAILY [facility] Last Admin: 11/15/18 07:57 Dose: 600 mg Gabapentin (Neurontin Cap(*)) 600 mg PO DAILY@1400 [facility] Last Admin: 11/14/18 17:27 Dose: 600 mg Glyburide (Diabeta Tab*) 2.5 mg PO BID [facility] Last Admin: 11/15/18 07:58 Dose: 2.5 mg Guaifenesin (Mucinex*) 1,200 mg PO BID [facility] Last Admin: 11/15/18 07:55 Dose: 1,200 mg Heparin Sodium (Porcine) (Heparin Flush Port (Ivad)) 5 ml FLUSH DAILY [facility]; Protocol Last Admin: 11/15/18 07:54 Dose: 5 ml Hydromorphone HCl (Dilaudid Inj1s*) 2 mg IV SLOW PU Q2H PRN PRN Reason: PAIN Last Admin: 11/15/18 07:55 Dose: 2 mg Insulin Glargine (Lantus(*)) 10 units SUBCUT Q24H [facility] Last Admin: 11/15/18 07:57 Dose: 10 units Insulin Human Lispro (Humalog*) 0 units SUBCUT ACHS [facility]; Protocol Last Admin: 11/15/18 07:58 Dose: Not Given Magnesium Oxide (Magox 400 Tab*) 400 mg PO DAILY [facility] Last Admin: 11/15/18 07:57 Dose: 400 mg Metformin HCl (Glucophage*) 500 mg PO BID [facility] Last Admin: 11/15/18 07:56 Dose: 500 mg Methadone HCl (Dolophine Tab*) 20 mg PO QAM [facility] Last Admin: 11/14/18 10:09 Dose: 20 mg Methadone HCl (Dolophine Tab*) 10 mg PO 1400,2100 [facility] Last Admin: 11/14/18 22:39 Dose: 10 mg Mometasone Furoate (Asmanex 220 Mcg Mdi *) 1 puff INH BEDTIME [facility] Last Admin: 11/14/18 19:58 Dose: 1 puff Morphine Sulfate (Ms Contin(*)) 60 mg PO BID [facility] Nystatin (Nystatin Cream*) 1 applic TOPICAL TID [facility] Last Admin: 11/15/18 08:52 Dose: Not Given Ondansetron HCl (Zofran Inj*) 4 mg IV Q4H PRN PRN Reason: NAUSEA/VOMITING Polyethylene Glycol/Electrolytes (Miralax*) 17 gm PO DAILY PRN PRN Reason: CONSTIPATION Last Admin: 11/09/18 09:00 Dose: 17 gm Potassium Chloride (Klor-Con Liquid*) 20 meq PO DAILY [facility] Last Admin: 11/15/18 07:55 Dose: 20 meq Prednisone (Deltasone Tab*) 20 mg PO DAILY [facility] Last Admin: 11/15/18 07:57 Dose: 20 mg Tiotropium [place] (Spiriva Cap.Inh*) 1 cap INH DAILY [facility] Last Admin: 11/15/18 07:29 Dose: 1 cap Vital Signs Temp Pulse Resp BP Pulse Ox 98.3 F 52 18 127/71 92 11/15/18 07:20 11/15/18 07:29 11/15/18 07:58 11/15/18 07:20 11/15/18 07:29 Exam: Gen: Chronically ill 58 yo female who appears comfortable today and accompanied by family HEENT: MMM CV: RRR, no m/r/g Resp: CTA, no w/c/r Abd: soft, non TTP Ext: trace to no edema Skin: multiple small plaques over skin of all 4 extremities] [Assessment: []58 yo female with progressive SCLC now sp WBRT and completing palliative RT to right hip, presented with uncontrolled pain slowly improving with addition of Methadone and steroids (as pain r/t to both bone mets and underlying psoriatic arthritis). At this time pain improved, but still requiring IV narcotics as we titrate new long acting meds; in addition her ambulatory ability is very limited. Some over sedation secondary to narcotics. Plan: []1. Pain: combination of metastatic disease and psoriatic arthritis - Cont Methadone to 20 mg in AM, 10 mg mid-day, 10 mg HS (QTc 448 on 10/28/18), titration q 48-72 hrs - Decrease MS contin to 60 mg BID, cont to titrate down as methadone is titrated up - Continue dilaudid 2 mg IV q2 hrs PRN pain while we titrate oral long acting medications - Cont 600/600/1200 of gabapentin - Cont bowel regimen - Cont. Prednisone 20 mg po daily indefinitely d/t PA and need to avoid mtx. for chemo 2. SCLC: extensive discussion regarding condition, disease, and prognosis this admission - s/p WBRT, completing palliative RT to hip 11/19 - plan palliative Topotecan 1.5 mg/m2/day D1-5 q21 days but will not start until 11/25 at the earliest - MRI brain with RadOnc 12/20/18, full restaging after 3 cycles of chemo 3. DM: elevated FS with steroids - started 10U lantus daily, cont. PO hypoglycemic agents as well 4. Cough - CXR WNL x 2 - cont mucinex - start antihistamine to help with congestion 4. Eliquis for DVT prophylaxis (on d/t A.Fib) 5. Weakness: PT working with daily 6. DNR/DNI Dispo: plan for dc home within the next several days]]
[2018-11-15] MEDS: Methadone TAB* 10 MG PO SCH ×3 (12:05→21:53)
[2018-11-15] MEDS: Mometasone 220 MCG MDI INH SCH (19:33)
[2018-11-15] MEDS: Gabapentin CAP(*) 400 MG PO SCH (20:27)
--- NOTE | 2018-11-16 00:35 | PN ---
Hospitalist Progress Note Date of Service: 11/16/18 CAT CALL NOTE: CAT called by nursing staff as patient was difficult to arouse. Upon our arrival patient was awake, alert, and oriented. Per nursing she appeared to be sleeping, but was difficult to arouse. Nursing reports they attempted verbal and painful stimuli with no results initially, but quickly awoke on her own very shortly after these attempts. VSS. Patient alert and oriented. Answering questions appropriately and stated she is tired. Moving all extremities well and equally. HRR. LS clear. Per nursing patient recently received Methadone and Morphine. I suspected patient's state was secondary to medications. Symptoms quickly resolved. Continue to monitor.
[2018-11-16] MEDS: HYDROmorphone INJ1* 1 MG/ML SYRINGE IV SLOW PU PRN ×2 (05:27→23:06)
[2018-11-16] MEDS: Insulin LISPRO* 1 UNITS UNIT SUBCUT SCH ×4 (07:55→20:21)
[2018-11-16] MEDS: Tiotropium CAP.INH* CAP.INH/18 MCG (USE ORDER SET !) INH SCH (08:27)
[2018-11-16] MEDS: Morphine TAB Extended Release (*) 30 MG TAB.ER PO SCH ×2 (08:47→20:18)
[2018-11-16] MEDS: Allopurinol TAB* 300 MG PO SCH (08:49)
[2018-11-16] MEDS: Apixaban* 2.5 MG TAB PO SCH ×2 (08:49→20:19)
[2018-11-16] MEDS: Diltiazem CD CAP* 180 MG PO SCH (08:49)
[2018-11-16] MEDS: Magnesium Oxide TAB* 400 MG PO SCH (08:49)
[2018-11-16] MEDS: Potassium Chloride LIQUID* 20 MEQ PACKET PO SCH (08:50)
[2018-11-16] MEDS: Furosemide TAB* 20 MG PO SCH (08:50)
[2018-11-16] MEDS: Folic Acid TAB* 1 MG PO SCH (08:50)
[2018-11-16] MEDS: metFORMIN* 500 MG TAB PO SCH ×2 (08:50→20:19)
[2018-11-16] MEDS: Citalopram TAB* 40 MG PO SCH (08:50)
[2018-11-16] MEDS: predniSONE TAB* 20 MG PO SCH (08:50)
[2018-11-16] MEDS: Docusate CAP* 100 MG PO SCH ×2 (08:51→20:19)
[2018-11-16] MEDS: guaiFENesin ER TAB 600 MG PO SCH ×2 (08:51→20:21)
[2018-11-16] MEDS: Cetirizine* 10 MG TAB PO SCH (08:51)
[2018-11-16] MEDS: glyBURIDE TAB* 2.5 MG PO SCH ×2 (08:51→20:20)
[2018-11-16] MEDS: Gabapentin CAP(*) 300 MG PO SCH ×3 (08:52→20:20)
[2018-11-16] MEDS: Insulin GLARGINE(*) 1 UNITS UNIT SUBCUT SCH (08:53)
[2018-11-16] MEDS: Methadone TAB* 10 MG PO SCH ×3 (08:57→23:06)
[2018-11-16] MEDS: Nystatin CREAM* 15 GM TUBE TOPICAL SCH ×3 (08:57→20:26)
--- NOTE | 2018-11-16 10:00 | PN ---
Progress Note - Progress Note Date of Service: 11/16/18 SOAP: Subjective: []She continues to have pain at 8/10. Episode last night when difficult to arouse her. She is better. eating well. Feels can go home with ramp for house. Will finish XRT next week. Acetaminophen (Tylenol Tab*) 650 mg PO Q4H PRN PRN Reason: FEVER/PAIN Last Admin: 11/14/18 04:21 Dose: 650 mg Allopurinol (Zyloprim Tab*) 300 mg PO DAILY [facility] Last Admin: 11/16/18 08:49 Dose: 300 mg Apixaban (Eliquis*) 2.5 mg PO BID [facility] Last Admin: 11/16/18 08:49 Dose: 2.5 mg Cetirizine HCl (Zyrtec*) 10 mg PO DAILY [facility]; Protocol Last Admin: 11/16/18 08:51 Dose: 10 mg Citalopram Hydrobromide (Celexa Tab*) 40 mg PO DAILY [facility] Last Admin: 11/16/18 08:50 Dose: 40 mg Device (Tiotropium Inhaler Device*) 1 each INH .USE w/ SPIRIVA CAPS [facility] Diltiazem HCl (Cardizem Cd Cap*) 180 mg PO DAILY [facility] Last Admin: 11/16/18 08:49 Dose: 180 mg Docusate Sodium (Colace Cap*) 100 mg PO BID [facility] Last Admin: 11/16/18 08:51 Dose: 100 mg Folic Acid (Folvite Tab*) 1 mg PO DAILY [facility] Last Admin: 11/16/18 08:50 Dose: 1 mg Furosemide (Lasix Tab*) 20 mg PO DAILY [facility] Last Admin: 11/16/18 08:50 Dose: 20 mg Gabapentin (Neurontin Cap(*)) 600 mg PO DAILY [facility] Last Admin: 11/16/18 08:52 Dose: 600 mg Gabapentin (Neurontin Cap(*)) 600 mg PO DAILY@1400 [facility] Last Admin: 11/15/18 13:49 Dose: 600 mg Gabapentin (Neurontin Cap(*)) 600 mg PO BEDTIME [facility] Glyburide (Diabeta Tab*) 2.5 mg PO BID [facility] Last Admin: 11/16/18 08:51 Dose: 2.5 mg Guaifenesin (Mucinex*) 1,200 mg PO BID [facility] Last Admin: 11/16/18 08:51 Dose: 1,200 mg Heparin Sodium (Porcine) (Heparin Flush Port (Ivad)) 5 ml FLUSH DAILY [facility]; Protocol Last Admin: 11/16/18 08:52 Dose: 5 ml Hydromorphone HCl (Dilaudid Inj1s*) 2 mg IV SLOW PU Q2H PRN PRN Reason: PAIN Last Admin: 11/16/18 05:27 Dose: 2 mg Insulin Glargine (Lantus(*)) 10 units SUBCUT Q24H [facility] Last Admin: 11/16/18 08:53 Dose: 10 units Insulin Human Lispro (Humalog*) 0 units SUBCUT ACHS [facility]; Protocol Last Admin: 11/16/18 07:55 Dose: Not Given Magnesium Oxide (Magox 400 Tab*) 400 mg PO DAILY [facility] Last Admin: 11/16/18 08:49 Dose: 400 mg Metformin HCl (Glucophage*) 500 mg PO BID [facility] Last Admin: 11/16/18 08:50 Dose: 500 mg Methadone HCl (Dolophine Tab*) 20 mg PO QAM [facility] Last Admin: 11/16/18 08:57 Dose: Not Given Methadone HCl (Dolophine Tab*) 10 mg PO 2100 [facility] Mometasone Furoate (Asmanex 220 Mcg Mdi *) 1 puff INH BEDTIME [facility] Last Admin: 11/15/18 19:33 Dose: 1 puff Morphine Sulfate (Ms Contin(*)) 60 mg PO BID [facility] Last Admin: 11/16/18 08:47 Dose: 60 mg Nystatin (Nystatin Cream*) 1 applic TOPICAL TID [facility] Last Admin: 11/16/18 08:57 Dose: Not Given Ondansetron HCl (Zofran Inj*) 4 mg IV Q4H PRN PRN Reason: NAUSEA/VOMITING Polyethylene Glycol/Electrolytes (Miralax*) 17 gm PO DAILY PRN PRN Reason: CONSTIPATION Last Admin: 11/09/18 09:00 Dose: 17 gm Potassium Chloride (Klor-Con Liquid*) 20 meq PO DAILY [facility] Last Admin: 11/16/18 08:50 Dose: 20 meq Prednisone (Deltasone Tab*) 20 mg PO DAILY [facility] Last Admin: 11/16/18 08:50 Dose: 20 mg Tiotropium [place] (Spiriva Cap.Inh*) 1 cap INH DAILY [facility] Last Admin: 11/16/18 08:27 Dose: 1 cap Objective: [] Vital Signs Temp Pulse Resp BP Pulse Ox 98.2 F 78 18 118/91 93 11/16/18 08:10 11/16/18 08:10 11/16/18 08:52 11/16/18 08:10 11/16/18 08:10 Exam: Gen: 58 yo female who appears comfortable today HEENT: MMM CV: RRR, no m/r/g Resp: CTA, no w/c/r Abd: soft, non TTP Ext: trace to no edema Skin: multiple small plaques over skin of all 4 extremities] [Assessment: []58 yo female with progressive SCLC now sp WBRT and completing palliative RT to right hip, presented with uncontrolled pain slowly improving with addition of Methadone and steroids (as pain r/t to both bone mets and underlying psoriatic arthritis). At this time pain improved, but still requiring IV narcotics as we titrate new long acting meds; in addition her ambulatory ability is very limited. Some over sedation secondary to narcotics and gabapentin. Plan: []1. Pain: combination of metastatic disease and psoriatic arthritis - Methadone to 20 mg in AM, and 1400, 10 mg HS (QTc 448 on 10/28/18), titration q 48-72 hrs - MS Contin to 30 mg bid. - Continue dilaudid 2 mg IV q2 hrs PRN pain while we titrate oral long acting medications - Cont 600/600/600 of gabapentin - Cont bowel regimen - Cont. Prednisone 20 mg po daily indefinitely d/t PA and need to avoid mtx. for chemo 2. SCLC: discussion regarding condition, disease, and prognosis this admission - s/p WBRT, completing palliative RT to hip 11/19 - plan palliative Topotecan 1.5 mg/m2/day D1-5 q21 days but will not start until 11/25 - [facility] after 3 cycles of chemo - CT C/A/P on Sunday and before chemotherapy. 3. DM: elevated FS with steroids - Improved on 10U lantus daily, cont. PO hypoglycemic agents as well. - If episode of difficulty to arouse, check BS 4. Cough - cont mucinex - start antihistamine to help with congestion 4. Eliquis for DVT prophylaxis (on d/t A.Fib) 5. Weakness: PT working with daily 6. DNR/DNI Plan is d/c home on Sunday
[2018-11-16] MEDS: Acetaminophen TAB* 325 MG PO PRN (14:25)
[2018-11-16] MEDS: Mometasone 220 MCG MDI INH SCH (19:16)
[2018-11-17] MEDS: Acetaminophen TAB* 325 MG PO PRN ×2 (03:34→22:55)
[2018-11-17] MEDS: Insulin LISPRO* 1 UNITS UNIT SUBCUT SCH ×4 (07:29→22:56)
[2018-11-17] MEDS: Tiotropium CAP.INH* CAP.INH/18 MCG (USE ORDER SET !) INH SCH (08:08)
--- NOTE | 2018-11-17 08:18 | PN ---
Progress Note - Progress Note Date of Service: 11/17/18 SOAP: Subjective: []Pain was fine yesterday, overall doing well. Vital Signs Temp Pulse Resp BP Pulse Ox 98.2 F 68 14 118/68 98 11/17/18 03:30 11/17/18 08:09 11/17/18 08:09 11/17/18 03:30 11/17/18 08:09 Objective: [] Exam: Gen: 58 yo female who appears comfortable today HEENT: MMM CV: RRR, no m/r/g Resp: CTA, no w/c/r Abd: soft, non TTP Ext: trace to no edema Skin: rash improved. [Assessment: []58 yo female with progressive SCLC now sp WBRT and completing palliative RT to right hip, presented with uncontrolled pain slowly improving with addition of Methadone and steroids (as pain r/t to both bone mets and underlying psoriatic arthritis). At this time pain improved, but still requiring IV narcotics as we titrate new long acting meds; in addition her ambulatory ability is very limited. Working to discharge tomorrow. Plan: []1. Pain: combination of metastatic disease and psoriatic arthritis - Methadone to 20 mg in AM, and 1400, 10 mg HS (QTc 448 on 10/28/18), titration to 20 tid tomorrow - MS Contin to 30 mg bid. - Continue dilaudid 2 mg IV q2 hrs PRN pain while we titrate oral long acting medications - Cont 600/600/600 of gabapentin - Cont bowel regimen - Cont. Prednisone 20 mg po daily indefinitely d/t PA and need to avoid mtx. for chemo - Check EKG 2. SCLC. - s/p WBRT, completing palliative RT to hip 11/19 - plan palliative Topotecan 1.5 mg/m2/day D1-5 q21 days but will not start until 11/25 - MRI brain with [facility] 12/20/18, full restaging after 3 cycles of chemo - CT C/A/P today 3. DM: elevated FS with steroids - Improved on 10U lantus daily, cont. PO hypoglycemic agents as well. - If episode of difficulty to arouse, check BS 4. Cough. Better. - cont mucinex, antihistamine 4. Eliquis for DVT prophylaxis (on d/t A.Fib) 5. Weakness: PT working with daily 6. DNR/DNI Plan is d/c home on Sunday
[2018-11-17] MEDS: Allopurinol TAB* 300 MG PO SCH (09:08)
[2018-11-17] MEDS: Cetirizine* 10 MG TAB PO SCH (09:08)
[2018-11-17] MEDS: Docusate CAP* 100 MG PO SCH ×2 (09:08→22:50)
[2018-11-17] MEDS: glyBURIDE TAB* 2.5 MG PO SCH ×2 (09:08→22:53)
[2018-11-17] MEDS: predniSONE TAB* 20 MG PO SCH (09:08)
[2018-11-17] MEDS: Folic Acid TAB* 1 MG PO SCH (09:08)
[2018-11-17] MEDS: Apixaban* 2.5 MG TAB PO SCH ×2 (09:08→22:51)
[2018-11-17] MEDS: guaiFENesin ER TAB 600 MG PO SCH ×2 (09:08→22:54)
[2018-11-17] MEDS: Furosemide TAB* 20 MG PO SCH (09:08)
[2018-11-17] MEDS: metFORMIN* 500 MG TAB PO SCH ×2 (09:08→22:53)
[2018-11-17] MEDS: Magnesium Oxide TAB* 400 MG PO SCH (09:09)
[2018-11-17] MEDS: Gabapentin CAP(*) 300 MG PO SCH ×3 (09:09→22:54)
[2018-11-17] MEDS: Citalopram TAB* 40 MG PO SCH (09:09)
[2018-11-17] MEDS: Morphine TAB Extended Release (*) 30 MG TAB.ER PO SCH ×2 (09:09→22:52)
[2018-11-17] MEDS: Diltiazem CD CAP* 180 MG PO SCH (09:09)
[2018-11-17] MEDS: Methadone TAB* 10 MG PO SCH ×2 (09:10→13:20)
[2018-11-17] MEDS: Potassium Chloride LIQUID* 20 MEQ PACKET PO SCH (09:10)
[2018-11-17] MEDS: Nystatin CREAM* 15 GM TUBE TOPICAL SCH ×2 (09:13→13:12)
[2018-11-17] MEDS: HYDROmorphone INJ1* 1 MG/ML SYRINGE IV SLOW PU PRN ×3 (10:36→22:58)
[2018-11-17] MEDS ORDERED: Iodixanol* (CONTRAST) 320 MG/ML 100 ML SDV IV ONE (11:34)
[2018-11-17] MEDS: Insulin GLARGINE(*) 1 UNITS UNIT SUBCUT SCH (13:17)
[2018-11-17] MEDS: Mometasone 220 MCG MDI INH SCH (19:10)
[2018-11-18] MEDS: Nystatin CREAM* 15 GM TUBE TOPICAL SCH ×4 (00:23→21:48)
[2018-11-18] MEDS: Acetaminophen TAB* 325 MG PO PRN ×2 (03:46→14:51)
[2018-11-18] MEDS: HYDROmorphone INJ1* 1 MG/ML SYRINGE IV SLOW PU PRN ×5 (03:47→22:41)
[2018-11-18] MEDS: Methadone TAB* 10 MG PO SCH ×4 (03:53→19:55)
[2018-11-18 06:10] LABS: ABS Basophils 0.1 10^3/ul (0-0.2); ABS Eosinophils 0.1 10^3/ul (0-0.6); ABS Lymphocytes 0.9 10^3/ul (1.0-4.8); ABS Monocytes 0.6 10^3/ul (0-0.8); ABS Neutrophils 4.6 10^3/ul (1.5-7.7); ABS Nucleated RBC 0 10^3/ul; Eosinophil % 1.7 %; Hematocrit 34 % (33-41); Hemoglobin 10.6 g/dL (12.0-16.0); Lymphocyte % 14.4 %; Mean Corpuscular HGB Conc 31 g/dL (31-36); Mean Corpuscular Hemoglobin 28 pg (27-31); Mean Corpuscular Volume 91 fL (80-97); Mean Platelet Volume 7.3 fL (7.4-10.4); Nucleated Red Blood Cells % 0.2; Platelet Count 185 10^3/uL (150-450); Red Blood Count 3.74 10^6 /uL (3.70-4.87); Red Cell Distribution Width 22 % (10.5-15); White Blood Count 6.3 10^3/uL (3.5-10.8)
[2018-11-18 06:27] LABS: Albumin 3.3 g/dL (3.2-5.2); Albumin/Globulin Ratio 1.1 (1-3); BUN/Creatinine Ratio 23.7 (8-20); Calcium 9.7 mg/dL (8.6-10.3); EGFR African American 127.1 (>60); EGFR Non-African American 105.1 (>60); Potassium 4.2 mmol/L (3.5-5.0); Total Bilirubin 0.7 mg/dL (0.2-1.0); Total Protein 6.3 g/dL (6.4-8.9)
[2018-11-18] MEDS: Tiotropium CAP.INH* CAP.INH/18 MCG (USE ORDER SET !) INH SCH (07:43)
[2018-11-18] MEDS: Potassium Chloride LIQUID* 20 MEQ PACKET PO SCH (08:25)
[2018-11-18] MEDS: Docusate CAP* 100 MG PO SCH ×2 (08:26→20:19)
[2018-11-18] MEDS: glyBURIDE TAB* 2.5 MG PO SCH ×2 (08:26→20:19)
[2018-11-18] MEDS: Gabapentin CAP(*) 300 MG PO SCH ×3 (08:27→20:20)
[2018-11-18] MEDS: Apixaban* 2.5 MG TAB PO SCH ×2 (08:27→20:18)
[2018-11-18] MEDS: metFORMIN* 500 MG TAB PO SCH ×2 (08:27→20:19)
[2018-11-18] MEDS: Citalopram TAB* 40 MG PO SCH (08:28)
[2018-11-18] MEDS: Allopurinol TAB* 300 MG PO SCH (08:28)
[2018-11-18] MEDS: guaiFENesin ER TAB 600 MG PO SCH ×2 (08:28→20:19)
[2018-11-18] MEDS: Diltiazem CD CAP* 180 MG PO SCH (08:29)
[2018-11-18] MEDS: Folic Acid TAB* 1 MG PO SCH (08:29)
[2018-11-18] MEDS: Morphine TAB Extended Release (*) 30 MG TAB.ER PO SCH ×2 (08:29→20:20)
[2018-11-18] MEDS: Furosemide TAB* 20 MG PO SCH (08:30)
[2018-11-18] MEDS: Cetirizine* 10 MG TAB PO SCH (08:30)
[2018-11-18] MEDS: predniSONE TAB* 20 MG PO SCH (08:30)
[2018-11-18] MEDS: Magnesium Oxide TAB* 400 MG PO SCH (08:31)
[2018-11-18] MEDS: Insulin LISPRO* 1 UNITS UNIT SUBCUT SCH ×4 (08:31→20:21)
[2018-11-18] MEDS: Insulin GLARGINE(*) 1 UNITS UNIT SUBCUT SCH (08:32)
--- NOTE | 2018-11-18 17:22 | PN ---
Progress Note - Progress Note Date of Service: 11/18/18 SOAP: Subjective: []Seen and examined this AM. Laurel a large crack when she got of the toilet and now left hip hurts with any movement or weight. Really doesn't think she can go home today. Pain cont.'s. Medications: Acetaminophen (Tylenol Tab*) 650 mg PO Q4H PRN PRN Reason: FEVER/PAIN Last Admin: 11/18/18 14:51 Dose: 650 mg Allopurinol (Zyloprim Tab*) 300 mg PO DAILY [facility] Last Admin: 11/18/18 08:28 Dose: 300 mg Apixaban (Eliquis*) 2.5 mg PO BID [facility] Last Admin: 11/18/18 08:27 Dose: 2.5 mg Cetirizine HCl (Zyrtec*) 10 mg PO DAILY [facility]; Protocol Last Admin: 11/18/18 08:30 Dose: 10 mg Citalopram Hydrobromide (Celexa Tab*) 40 mg PO DAILY [facility] Last Admin: 11/18/18 08:28 Dose: 40 mg Device (Tiotropium Inhaler Device*) 1 each INH .USE w/ SPIRIVA CAPS [facility] Diltiazem HCl (Cardizem Cd Cap*) 180 mg PO DAILY [facility] Last Admin: 11/18/18 08:29 Dose: 180 mg Docusate Sodium (Colace Cap*) 100 mg PO BID [facility] Last Admin: 11/18/18 08:26 Dose: 100 mg Folic Acid (Folvite Tab*) 1 mg PO DAILY [facility] Last Admin: 11/18/18 08:29 Dose: 1 mg Furosemide (Lasix Tab*) 20 mg PO DAILY [facility] Last Admin: 11/18/18 08:30 Dose: 20 mg Gabapentin (Neurontin Cap(*)) 600 mg PO DAILY [facility] Last Admin: 11/18/18 08:27 Dose: 600 mg Gabapentin (Neurontin Cap(*)) 600 mg PO DAILY@1400 [facility] Last Admin: 11/18/18 13:29 Dose: 600 mg Gabapentin (Neurontin Cap(*)) 600 mg PO BEDTIME [facility] Last Admin: 11/17/18 22:54 Dose: 600 mg Glyburide (Diabeta Tab*) 2.5 mg PO BID [facility] Last Admin: 11/18/18 08:26 Dose: 2.5 mg Guaifenesin (Mucinex*) 1,200 mg PO BID [facility] Last Admin: 11/18/18 08:28 Dose: 1,200 mg Heparin Sodium (Porcine) (Heparin Flush Port (Ivad)) 5 ml FLUSH DAILY [facility]; Protocol Last Admin: 11/18/18 08:33 Dose: 5 ml Hydromorphone HCl (Dilaudid Inj1s*) 2 mg IV SLOW PU Q2H PRN PRN Reason: PAIN Last Admin: 11/18/18 13:33 Dose: 2 mg Insulin Glargine (Lantus(*)) 10 units SUBCUT Q24H [facility] Last Admin: 11/18/18 08:32 Dose: 10 units Insulin Human Lispro (Humalog*) 0 units SUBCUT ACHS [facility]; Protocol Last Admin: 11/18/18 12:45 Dose: 3 units Magnesium Oxide (Magox 400 Tab*) 400 mg PO DAILY [facility] Last Admin: 11/18/18 08:31 Dose: 400 mg Metformin HCl (Glucophage*) 500 mg PO BID [facility] Last Admin: 11/18/18 08:27 Dose: 500 mg Methadone HCl (Dolophine Tab*) 10 mg PO 2100 [facility] Last Admin: 11/18/18 03:53 Dose: Not Given Methadone HCl (Dolophine Tab*) 20 mg PO 0900,1400 [facility] Last Admin: 11/18/18 13:29 Dose: 20 mg Mometasone Furoate (Asmanex 220 Mcg Mdi *) 1 puff INH BEDTIME [facility] Last Admin: 11/17/18 19:10 Dose: 1 puff Morphine Sulfate (Ms Contin(*)) 30 mg PO BID [facility] Last Admin: 11/18/18 08:29 Dose: 30 mg Nystatin (Nystatin Cream*) 1 applic TOPICAL TID [facility] Last Admin: 11/18/18 13:28 Dose: Not Given Ondansetron HCl (Zofran Inj*) 4 mg IV Q4H PRN PRN Reason: NAUSEA/VOMITING Polyethylene Glycol/Electrolytes (Miralax*) 17 gm PO DAILY PRN PRN Reason: CONSTIPATION Last Admin: 11/09/18 09:00 Dose: 17 gm Potassium Chloride (Klor-Con Liquid*) 20 meq PO DAILY [facility] Last Admin: 11/18/18 08:25 Dose: 20 meq Prednisone (Deltasone Tab*) 20 mg PO DAILY [facility] Last Admin: 11/18/18 08:30 Dose: 20 mg Tiotropium [place] (Spiriva Cap.Inh*) 1 cap INH DAILY [facility] Last Admin: 11/18/18 07:43 Dose: 1 cap Objective: [] Vital Signs Temp Pulse Resp BP Pulse Ox 97.9 F 81 16 117/59 94 11/18/18 11:29 11/18/18 11:29 11/18/18 13:33 11/18/18 11:29 11/18/18 11:29 A&Ox3, easily forgetful Good upper body strength = bilat. Left lower extremity pain with movement and tenderness to palpation of hip Resp. even and non-labored without wheeze or rhonchi Laboratory Results - last 24 hr 11/17/18 11/18/18 11/18/18 22:01 05:54 05:54 WBC 6.3 RBC 3.74 Hgb 10.6 L Hct 34 MCV 91 MCH 28 MCHC 31 RDW 22 H Plt Count 185 MPV 7.3 L Neut % (Auto) 72.6 Lymph % (Auto) 14.4 [place] % (Auto) 10.3 Eos % (Auto) 1.7 Baso % (Auto) 1.0 Absolute Neuts (auto) 4.6 Absolute Lymphs (auto) 0.9 L Absolute Monos (auto) 0.6 Absolute Eos (auto) 0.1 Absolute Basos (auto) 0.1 Absolute Nucleated RBC 0 Nucleated RBC % 0.2 Sodium 138 Potassium 4.2 Chloride 96 L Carbon Dioxide 37 H Anion Gap 5 BUN 14 Creatinine 0.59 Est GFR ( Amer) 127.1 Est GFR (Non-Af Amer) 105.1 BUN/Creatinine Ratio 23.7 H Glucose 60 L POC Glucose (mg/dL) 193 H Calcium 9.7 Total Bilirubin 0.70 AST 15 ALT 30 Alkaline Phosphatase 144 H Total Protein 6.3 L Albumin 3.3 Globulin 3.0 Albumin/Globulin Ratio 1.1 Assessment: []8 yo female with progressive SCLC now sp WBRT and completing palliative RT to right hip, presented with uncontrolled pain slowly improving with addition of Methadone and steroids (as pain r/t to both bone mets and underlying psoriatic arthritis). Sudden onset of pain to left hip concerning for fracture and therefore will obtain x-ray and re-eval. plan for d/c tomorrow. Plan: []1. Pain: combination of metastatic disease and psoriatic arthritis - Methadone to 20 mg TID today (QTc 448 on 10/28/18) - MS Contin to 30 mg bid - Continue dilaudid 2 mg IV q2 hrs PRN pain while we titrate oral long acting medications - Cont 600/600/600 of gabapentin - Cont bowel regimen - Cont. Prednisone 20 mg po daily indefinitely d/t PA and need to avoid mtx. for chemo - Check EKG - X-ray of hip negative, cont. PT 2. SCLC - s/p WBRT, completing palliative RT to hip 11/19 - plan palliative Topotecan 1.5 mg/m2/day D1-5 q21 days will start 11/25 [facility] after 3 cycles of chemo 3. DM: elevated FS with steroids - Improved on 10U lantus daily, cont. PO hypoglycemic agents as well. - If episode of difficulty to arouse, check BS 4. Eliquis for DVT prophylaxis (on d/t A.Fib) 5. Weakness: PT working with daily, should cont. as outpatient 6. DNR/DNI Hopeful for d/c tomorrow, however if remains uncomfortable with plan of care then will need rehab
[2018-11-18] MEDS: Mometasone 220 MCG MDI INH SCH (19:47)
[2018-11-19] MEDS: HYDROmorphone INJ1* 1 MG/ML SYRINGE IV SLOW PU PRN ×4 (00:37→12:21)
[2018-11-19] MEDS: Acetaminophen TAB* 325 MG PO PRN (03:29)
[2018-11-19] MEDS: Tiotropium CAP.INH* CAP.INH/18 MCG (USE ORDER SET !) INH SCH (07:10)
[2018-11-19] MEDS: Insulin LISPRO* 1 UNITS UNIT SUBCUT SCH ×2 (08:12→12:21)
[2018-11-19 09:14] VITALS: BP 124/68
[2018-11-19] MEDS: Folic Acid TAB* 1 MG PO SCH (09:54)
[2018-11-19] MEDS: Furosemide TAB* 20 MG PO SCH (09:54)
[2018-11-19] MEDS: Allopurinol TAB* 300 MG PO SCH (09:54)
[2018-11-19] MEDS: Morphine TAB Extended Release (*) 30 MG TAB.ER PO SCH (09:54)
[2018-11-19] MEDS: Diltiazem CD CAP* 180 MG PO SCH (09:54)
[2018-11-19] MEDS: metFORMIN* 500 MG TAB PO SCH (09:55)
[2018-11-19] MEDS: Magnesium Oxide TAB* 400 MG PO SCH (09:55)
[2018-11-19] MEDS: guaiFENesin ER TAB 600 MG PO SCH (09:55)
[2018-11-19] MEDS: glyBURIDE TAB* 2.5 MG PO SCH (09:55)
[2018-11-19] MEDS: predniSONE TAB* 20 MG PO SCH (09:55)
[2018-11-19] MEDS: Cetirizine* 10 MG TAB PO SCH (09:55)
[2018-11-19] MEDS: Insulin GLARGINE(*) 1 UNITS UNIT SUBCUT SCH (09:56)
[2018-11-19] MEDS: Apixaban* 2.5 MG TAB PO SCH (09:56)
[2018-11-19] MEDS: Citalopram TAB* 40 MG PO SCH (09:56)
[2018-11-19] MEDS: Docusate CAP* 100 MG PO SCH (09:56)
[2018-11-19] MEDS: Gabapentin CAP(*) 300 MG PO SCH (09:57)
[2018-11-19] MEDS: Methadone TAB* 10 MG PO SCH (10:00)
[2018-11-19] MEDS: Nystatin CREAM* 15 GM TUBE TOPICAL SCH (10:01)
[2018-11-19] MEDS: Potassium Chloride LIQUID* 20 MEQ PACKET PO SCH (10:01)
--- NOTE | 2018-11-19 23:45 | DS ---
An addendum is now included in this report. CC: Dr. Calixto Rodriguez; Dr. Cade Fischer * DISCHARGE SUMMARY: DATE OF ADMISSION: 11/08/18 DATE OF DISCHARGE: 11/19/18 PRIMARY CARE PROVIDER: Dr. Calixto Rodriguez. PRIMARY ONCOLOGIST: Dr. Cade Fischer. ATTENDING PHYSICIAN: Dr. Miller.* (DICTATED BY JERMAINE PRUETT) DISCHARGING PROVIDER: JERMAINE Kaminski. PRIMARY DISCHARGE DIAGNOSES: 1. Intractable pain secondary to metastatic small cell carcinoma and exacerbation of psoriatic arthritis. 2. Diabetes with associated hyperglycemia secondary to steroid use. 3. Atrial fibrillation, chronic, without complication. 4. Obesity with BMI of 47. DISCHARGE MEDICATIONS: 1. Albuterol inhaler 2 puffs inhaled q.4 hours as needed for shortness of breath. 2. Allopurinol 300 mg p.o. daily. 3. Xanax 0.25 mg p.o. twice daily as needed for anxiety. 4. Eliquis 2.5 mg p.o. twice daily. 5. Otezla 30 mg p.o. twice daily. 6. QVAR 2 puffs inhaled daily. 7. Celexa 40 mg p.o. daily. 8. Nirali 180 mg p.o. daily. 9. Folic acid 1 mg p.o. daily. 10. Lasix 20 mg p.o. daily. 11. Gabapentin 600 mg morning and afternoon and 1200 mg at night. 12. Magnesium oxide 400 mg p.o. daily. 13. Metformin 500 mg p.o. twice daily. 14. Metformin with glyburide 500/2.5 one tablet p.o. twice daily. 15. B12 at 1000 mcg sublingual daily. 16. Protonix 40 mg p.o. daily. 17. Potassium 10 mEq p.o. daily. 18. Crestor 5 mg p.o. daily. 19. Spiriva 1 capsule inhaled daily. 20. Diltiazem 180 mg p.o. daily. 21. Dilaudid 8 mg p.o. q.4 hours as needed for pain. 22. Lantus 10 units subcu daily. 23. Methadone 20 mg p.o. 3 times daily. 24. Extended release morphine 3 mg p.o. twice daily. 25. Prednisone 20 mg p.o. daily. HOSPITAL IMAGIN. Chest x-ray demonstrates potentially some mild pulmonary edema and/or vascular congestion. 2. Bone scan on 11/11/18 demonstrates diffuse osteoblastic bone metastasis. 3. CT chest, abdomen and pelvis demonstrates increased heterogenous appearance of the liver concerning for potential metastatic lesion as well as chronic and unchanged splenomegaly. No lymphadenopathy noted. Diffuse mixed lytic and blastic metastatic lesions with the most severe lytic lesions involving the ischial bones with interval worsening compared to September exam. Negative for any pathologic fracture. 4. X-ray of the hip, 11/18/18, is negative for fracture. HOSPITAL COURSE: This is a 58-year-old female who unfortunately relapsed quickly following treatment for her small cell lung carcinoma, presented initially with brain metastasis and had been receiving whole brain radiation, but reported increasing arthralgias, especially affecting the hips. The patient 's oral analgesics were rapidly titrated up over a period of several days, but her pain remained quite significant and she was unable to ambulate and subsequently admitted for intractable pain. Imaging demonstrated diffuse metastatic disease, most significant lesions noted to be in the pelvis. The patient received palliative radiation to both the right and left hemipelvis as well as proximal femurs. Patient was started on methadone during this hospitalization, which was uptitrated slowly as her long-acting morphine was appropriately down titrated. Patient seems to tolerate this medication quite well and her pain eventually came under better control. She did report worsening skin lesions consistent with exacerbation of her known psoriasis and she does have a history of psoriatic arthritis. It seems quite possible that her worsening arthralgias were also being complicated by her psoriatic arthritis, which she was previously treated with methotrexate, but had then held for her whole brain radiation treatment. Patient was subsequently started on prednisone at 20 mg daily. She had some associated hyperglycemia as a result of this change and was started on Lantus at 10 units daily, which did control her glucose quite nicely. Due to the rapid progression and significant symptoms associated with her small cell disease, plan was to initiate chemotherapy quickly and patient received her first dose of Taxol the day of discharge and did complete her palliative radiation to the hip during this hospitalization. DISPOSITION AND FOLLOWUP PLAN: The patient is being discharged to home with medications as listed above. We will continue to down titrate her MS Contin and up titrate methadone as an outpatient as necessary. As mentioned above, she received her first Taxol infusion today prior to leaving the hospital and did complete palliative radiation to the hip. She will be seen in followup in the Oncology Clinic early next week and received instructions to please contact the office with concerns that arise sooner. JERMAINE KAMINSKI ADDENDUM TO DISCHARGE SUMMARY: The patient was stable at the time of discharge. JERMAINE KAMINSKI [id number]/[facility]PS #: [id number]/CPS #: [id number] TRACEY
--- NOTE | 2018-12-12 21:15 | DS ---
DISCHARGE SUMMARY: ADDENDUM: The patient was stable at the time of discharge. JERMAINE KAMINSKI [id number]/[facility] #: [id number]
== END 2018-11-19 12:55 | disposition home health service (06) | DRG 346 ==
LOC: MED 16:35 → OBSVTOIN 11-10 09:00
PROVIDERS: ADMIT Internal Medicine Hematology & Oncology; ATTEND Internal Medicine Hematology & Oncology
PROC: DPY97ZZ Contact Radiation of Femur (ICD-10-PCS; principal; 2018-11-10)
DX: L40.50 Arthropathic psoriasis, unspecified (principal); C79.51 Secondary malignant neoplasm of bone; C34.90 Malignant neoplasm of unspecified part of unspecified bronchus or lung; C78.7 Secondary malignant neoplasm of liver and intrahepatic bile duct; C79.31 Secondary malignant neoplasm of brain; Z68.42 Body mass index [BMI] 45.0-49.9, adult; G89.3 Neoplasm related pain (acute) (chronic); E66.9 Obesity, unspecified; I48.2 Chronic atrial fibrillation; E11.65 Type 2 diabetes mellitus with hyperglycemia; J44.9 Chronic obstructive pulmonary disease, unspecified; M54.9 Dorsalgia, unspecified; R91.1 Solitary pulmonary nodule; F41.9 Anxiety disorder, unspecified; K21.9 Gastro-esophageal reflux disease without esophagitis; G47.30 Sleep apnea, unspecified; F17.210 Nicotine dependence, cigarettes, uncomplicated; T38.0X5A Adverse effect of glucocorticoids and synthetic analogues, initial encounter; I11.0 Hypertensive heart disease with heart failure; I50.9 Heart failure, unspecified; Z51.5 Encounter for palliative care; Z86.718 Personal history of other venous thrombosis and embolism; Z83.3 Family history of diabetes mellitus; Y92.9 Unspecified place or not applicable; Z79.01 Long term (current) use of anticoagulants; Z82.49 Family history of ischemic heart disease and other diseases of the circulatory system; Z90.49 Acquired absence of other specified parts of digestive tract; Z88.1 Allergy status to other antibiotic agents; Z88.8 Allergy status to other drugs, medicaments and biological substances; Z80.1 Family history of malignant neoplasm of trachea, bronchus and lung; Z84.1 Family history of disorders of kidney and ureter; Z79.4 Long term (current) use of insulin
CPT/HCPCS: 36415; 71046; 71260; 74177; 77387; 77412; 78306; 80048; 80053; 83735; 85025; 93005; 94640; 99219; 99232; 99233; 99239; A9270-GY; A9503; G8978-GP-CJ; G8979-GP-CI; J1100; J1170; J1642; J1650; J7512; Q9967

== ENCOUNTER 2018-12-31 14:25 | Inpatient (IN) | payer BC ==
[2018-12-31] MEDS ORDERED: Lorazepam PYXIS KEY PRN (14:38)
[2018-12-31] MEDS ORDERED: HYDROmorphone INJ* 0.5 MG/0.5 ML SYRINGE IV SLOW PU PRN (14:38)
[2018-12-31] MEDS ORDERED: Acetaminophen TAB* 325 MG PO PRN (14:57)
[2018-12-31] MEDS ORDERED: HYDROmorphone INJ1* 1 MG/ML SYRINGE IV SLOW PU ONE (15:34)
[2018-12-31] MEDS: metFORMIN* 500 MG TAB PO SCH (18:05)
[2018-12-31] MEDS: fentaNYL PATCHs 100 MCG/HR TRANSDERM SCH (18:05)
[2018-12-31] MEDS: HYDROmorphone INJ1* 1 MG/ML SYRINGE IV SLOW PU PRN ×5 (18:05→23:38)
[2018-12-31] MEDS: fentaNYL Patch Check Q Shift 1 NOTE FOLLOW UP SCH (19:16)
[2018-12-31] MEDS: Gabapentin CAP(*) 400 MG PO SCH (20:43)
[2018-12-31] MEDS: Diltiazem CD CAP* 180 MG PO SCH (20:43)
[2018-12-31] MEDS: Apixaban* 2.5 MG TAB PO SCH (20:44)
[2018-12-31] MEDS: APREMILAST 30 MG PO SCH (20:45)
[2018-12-31] MEDS: LORazepam INJ* 2 MG/ML 1 ML VIAL IV PUSH PRN (20:50)
[2019-01-01] MEDS: LORazepam INJ* 2 MG/ML 1 ML VIAL IV PUSH PRN ×3 (01:13→08:52)
[2019-01-01] MEDS: HYDROmorphone INJ1* 1 MG/ML SYRINGE IV SLOW PU PRN ×6 (01:13→10:36)
[2019-01-01] MEDS: fentaNYL Patch Check Q Shift 1 NOTE FOLLOW UP SCH ×2 (06:19→18:49)
[2019-01-01] MEDS: Citalopram TAB* 40 MG PO SCH (07:57)
[2019-01-01] MEDS: Gabapentin CAP(*) 300 MG PO SCH ×2 (07:57→10:40)
[2019-01-01] MEDS: predniSONE TAB* 20 MG PO SCH (07:57)
[2019-01-01] MEDS: Furosemide TAB* 20 MG PO SCH (07:57)
[2019-01-01] MEDS: APREMILAST 30 MG PO SCH ×2 (07:57→20:25)
[2019-01-01] MEDS: Allopurinol TAB* 300 MG PO SCH (07:57)
[2019-01-01] MEDS: metFORMIN* 500 MG TAB PO SCH ×2 (07:57→17:07)
[2019-01-01] MEDS ORDERED: HYDROmorphone INJ* 0.5 MG/0.5 ML SYRINGE IV SLOW PU ONE (08:00)
[2019-01-01] MEDS ORDERED: HYDROmorphone INJ1* 1 MG/ML SYRINGE IV SLOW PU ONE (08:00)
[2019-01-01] MEDS: Tiotropium CAP.INH* CAP.INH/18 MCG (USE ORDER SET !) INH SCH (08:24)
[2019-01-01] MEDS ORDERED: Iodixanol* (CONTRAST) 320 MG/ML 100 ML SDV IV ONE (08:48)
[2019-01-01] MEDS: Diltiazem CD CAP* 180 MG PO SCH ×2 (08:52→20:24)
[2019-01-01] MEDS: Apixaban* 2.5 MG TAB PO SCH ×2 (08:52→20:24)
[2019-01-01] MEDS ORDERED: Spiriva Inhaler DEVICE* 1 EACH DEVICE INH ONE (09:00)
[2019-01-01] MEDS ORDERED: HYDROmorphone INJ1* 1 MG/ML SYRINGE ONE (09:05)
[2019-01-01] MEDS ORDERED: Alteplase (CATHFLO)* 2 MG VIAL IV ONE (11:03)
[2019-01-01] MEDS ORDERED: Naloxone* 0.4 MG/ML 1 ML VIAL IV PUSH PRN (11:57)
--- NOTE | 2019-01-01 12:21 | PN ---
Progress Note - Progress Note Date of Service: 01/01/19 SOAP: Subjective: []Cont.'d difficulty with pain, dilaudid works for 15 min. and then pain is severe. Can't move but minimal amt.'s. Most comfortable in a chair. Still very shaky. Easily winded. Port was finicky this AM, but flushing and running to gravity. cathflo ordered. Medications: Acetaminophen (Tylenol Tab*) 650 mg PO TID PRN PRN Reason: PAIN Last Admin: 12/31/18 20:49 Dose: 650 mg Allopurinol (Zyloprim Tab*) 300 mg PO DAILY [facility] Last Admin: 01/01/19 07:57 Dose: Not Given Apixaban (Eliquis*) 2.5 mg PO BID [facility] Last Admin: 01/01/19 08:52 Dose: Not Given Apremilast (Otezla (Nf)) 30 mg PO BID [facility] Last Admin: 01/01/19 07:57 Dose: Not Given Citalopram Hydrobromide (Celexa Tab*) 40 mg PO DAILY [facility] Last Admin: 01/01/19 07:57 Dose: Not Given Diltiazem HCl (Cardizem Cd Cap*) 180 mg PO BID [facility] Last Admin: 01/01/19 08:52 Dose: Not Given Fentanyl (Duragesic Patch 100 Mcg/Hr *) 200 mcg TRANSDERM Q72H [facility] Last Admin: 12/31/18 18:05 Dose: 200 mcg Furosemide (Lasix Tab*) 20 mg PO DAILY [facility] Last Admin: 01/01/19 07:57 Dose: Not Given Gabapentin (Neurontin Cap(*)) 600 mg PO 0900,1200 [facility] Last Admin: 01/01/19 10:40 Dose: 600 mg Gabapentin (Neurontin Cap(*)) 1,200 mg PO BEDTIME [facility] Last Admin: 12/31/18 20:43 Dose: 1,200 mg Heparin Sodium (Porcine) (Heparin Flush Port (Ivad)) 5 ml FLUSH DAILY [facility]; Protocol Hydromorphone HCl (Dilaudid Inj1s*) 2 mg IV SLOW PU Q1H PRN PRN Reason: PAIN Last Admin: 01/01/19 10:36 Dose: 2 mg Lorazepam (Ativan Inj*) 1 mg IV PUSH Q4H PRN PRN Reason: ANXIETY Last Admin: 01/01/19 08:52 Dose: 1 mg Metformin HCl (Glucophage*) 500 mg PO BID WITH MEALS [facility] Last Admin: 01/01/19 07:57 Dose: Not Given Miscellaneous (Ativan Pyxis Alanis) 1 ea N/A .ATIVAN IV ALANIS PRN PRN Reason: PYXIS ALANIS Mometasone Furoate (Asmanex 220 Mcg Mdi *) 1 puff INH QPM [facility] Naloxone HCl (Narcan*) 0.08 mg IV PUSH .Q2MIN PRN PRN Reason: OVERSEDATION Pharmacy Profile Note (Fentanyl Patch Check Q Shift) 1 note FOLLOW UP 0700, 1900 [facility] Last Admin: 01/01/19 06:19 Dose: 1 note Prednisone (Deltasone Tab*) 20 mg PO DAILY [facility] Last Admin: 01/01/19 07:57 Dose: Not Given Tiotropium [place] (Spiriva Cap.Inh*) 1 cap INH DAILY [facility] Last Admin: 01/01/19 08:24 Dose: 1 cap Objective: [] Vital Signs Temp Pulse Resp BP Pulse Ox 98.5 F 103 18 148/76 98 01/01/19 07:34 01/01/19 08:26 01/01/19 11:09 01/01/19 07:34 01/01/19 08:26 A&Ox3, communicating clearly Lethargic but easily rousable Resp. even and non-labored Tremulous CT CAP with contrast this AM: IMPRESSION: 1. AGAIN NOTED IS A LEFT UPPER LOBE MASS WITH EXTENSION TO THE LEFT HILUM, STABLE. 2. THERE HAS BEEN INTERVAL PROGRESSION OF METASTATIC DISEASE TO THE LIVER. 3. AGAIN NOTED IS DIFFUSE OSSEOUS METASTATIC DISEASE. THERE HAS BEEN PROGRESSION OF DISEASE AT T11. 4. THERE HAS BEEN INTERVAL DEVELOPMENT OF A PATHOLOGIC FRACTURE THROUGH A LYTIC LESION OF THE THE POSTERIOR LEFT ACETABULUM. 5. THERE ARE MULTIPLE SUBACUTE APPEARING RIB FRACTURES BILATERALLY, WITH MORE ACUTE FRACTURES OF THE RIGHT SIXTH AND SEVENTH RIBS. <Electronically signed by Carlos Alberto Hope MD in [place]> 01/01/19 1051 Dictated By: Carlos Alberto Hope MD Dictated Date/Time: 01/01/19 1051 Transcribed Date/Time: 01/01/19 1041 Assessment: []58 yo female with metastatic SCLC now progressive s/p 2 months of Paclitaxel with progressive pain likely related to pathologic fracture at the site of prior palliative RT. Her pain has been very difficult to control and with the extensive progression of the liver disease I have recommended a [employer] and hospice consult. She has previously wanted to be more aggressive and somewhat in denial regarding her prognosis, however today she stated "so you're telling me I don't have long?" I suspect her prognosis is 3 months at most. She is agreeable to hospice and would be interested in the residency if there were room , which I think this is reasonable to consider based on her pain needs and very limited mobility. Plan: []Start hydromorphone [employer], cont. Fentanyl Hospice consult Dispo: depending on pain control and plan with hospice - Her was not in the room and I will call him this evening after his work day per her request to review the findings and recommendation
[2019-01-01] MEDS: HYDROmorphone PCA* 20 MG/20 ML PCA.SYRING PCA SCH (12:59)
--- NOTE | 2019-01-01 16:40 | PN ---
Progress Note - Progress Note Date of Service: 01/01/19 Note: Stopped by to see pt but she was sleeping. I didn't want to wake her because of her pain, but I left my card and hospice brochure I will be back tomorrow to talk with her. If she is interested in the residence case resource manager should send referral in am. I left CM note regarding this too.
[2019-01-01] MEDS: Mometasone 220 MCG MDI INH SCH (19:59)
[2019-01-01] MEDS: Gabapentin CAP(*) 400 MG PO SCH (20:24)
[2019-01-02] MEDS: fentaNYL Patch Check Q Shift 1 NOTE FOLLOW UP SCH ×2 (06:09→18:33)
[2019-01-02] MEDS: Tiotropium CAP.INH* CAP.INH/18 MCG (USE ORDER SET !) INH SCH (08:01)
[2019-01-02] MEDS ORDERED: Tiotropium CAP.INH* CAP.INH/18 MCG (USE ORDER SET !) INH ONE (08:06)
[2019-01-02] MEDS: HYDROmorphone PCA* 20 MG/20 ML PCA.SYRING PCA SCH (08:21)
[2019-01-02] MEDS: Furosemide TAB* 20 MG PO SCH (08:36)
[2019-01-02] MEDS: Citalopram TAB* 40 MG PO SCH (08:36)
[2019-01-02] MEDS: metFORMIN* 500 MG TAB PO SCH ×2 (08:36→16:16)
[2019-01-02] MEDS: Gabapentin CAP(*) 300 MG PO SCH ×2 (08:36→12:17)
[2019-01-02] MEDS: Apixaban* 2.5 MG TAB PO SCH ×2 (08:37→19:58)
[2019-01-02] MEDS: predniSONE TAB* 20 MG PO SCH (08:37)
[2019-01-02] MEDS: Allopurinol TAB* 300 MG PO SCH (08:37)
[2019-01-02] MEDS: Diltiazem CD CAP* 180 MG PO SCH ×2 (08:37→19:59)
[2019-01-02] MEDS: APREMILAST 30 MG PO SCH ×2 (08:38→19:59)
--- NOTE | 2019-01-02 09:25 | PN ---
Progress Note - Progress Note Date of Service: 01/02/19 SOAP: Subjective: [Reports that her pain is much better. She is comfortable at rest and she is able to stand and pivot without too much discomfort.] Objective: [ Acetaminophen (Tylenol Tab*) 650 mg PO TID PRN PRN Reason: PAIN Last Admin: 12/31/18 20:49 Dose: 650 mg Allopurinol (Zyloprim Tab*) 300 mg PO DAILY [facility] Last Admin: 01/02/19 08:37 Dose: 300 mg Apixaban (Eliquis*) 2.5 mg PO BID [facility] Last Admin: 01/02/19 08:37 Dose: 2.5 mg Apremilast (Otezla (Nf)) 30 mg PO BID [facility] Last Admin: 01/02/19 08:38 Dose: Not Given Citalopram Hydrobromide (Celexa Tab*) 40 mg PO DAILY [facility] Last Admin: 01/02/19 08:36 Dose: 40 mg Diltiazem HCl (Cardizem Cd Cap*) 180 mg PO BID [facility] Last Admin: 01/02/19 08:37 Dose: 180 mg Fentanyl (Duragesic Patch 100 Mcg/Hr *) 200 mcg TRANSDERM Q72H [facility] Last Admin: 12/31/18 18:05 Dose: 200 mcg Furosemide (Lasix Tab*) 20 mg PO DAILY [facility] Last Admin: 01/02/19 08:36 Dose: 20 mg Gabapentin (Neurontin Cap(*)) 600 mg PO 0900,1200 [facility] Last Admin: 01/02/19 08:36 Dose: 600 mg Gabapentin (Neurontin Cap(*)) 1,200 mg PO BEDTIME [facility] Last Admin: 01/01/19 20:24 Dose: 1,200 mg Heparin Sodium (Porcine) (Heparin Flush Port (Ivad)) 5 ml FLUSH DAILY [facility]; Protocol Last Admin: 01/02/19 08:38 Dose: Not Given Hydromorphone HCl (Dilaudid Inj1s*) 2 mg IV SLOW PU Q1H PRN PRN Reason: PAIN Last Admin: 01/01/19 10:36 Dose: 2 mg Hydromorphone HCl (Dilaudid Router Tender*) 20 mg in 20 mls @ 0 mls/hr CANE FURNITURE MAKER .change Q24H [facility]; Protocol Last Admin: 05/16/19 08:21 Dose: 0.3 mls/hr Lorazepam (Ativan Inj*) 1 mg IV PUSH Q4H PRN PRN Reason: ANXIETY Last Admin: 01/01/19 08:52 Dose: 1 mg Metformin HCl (Glucophage*) 500 mg PO BID WITH MEALS [facility] Last Admin: 01/02/19 08:36 Dose: 500 mg Miscellaneous (Ativan Pyxis Alanis) 1 ea N/A .ATIVAN IV ALANIS PRN PRN Reason: PYXIS ALANIS Mometasone Furoate (Asmanex 220 Mcg Mdi *) 1 puff INH QPM [facility] Last Admin: 01/01/19 19:59 Dose: 1 puff Naloxone HCl (Narcan*) 0.08 mg IV PUSH .Q2MIN PRN PRN Reason: OVERSEDATION Pharmacy Profile Note (Fentanyl Patch Check Q Shift) 1 note FOLLOW UP 0700, 1900 [facility] Last Admin: 01/02/19 06:09 Dose: 1 note Prednisone (Deltasone Tab*) 20 mg PO DAILY [facility] Last Admin: 01/02/19 08:37 Dose: 20 mg Tiotropium [place] (Spiriva Cap.Inh*) 1 cap INH DAILY [facility] Last Admin: 01/02/19 08:01 Dose: 1 cap Vital Signs: Temp Pulse Resp BP Pulse Ox 98.4 F 75 18 119/69 96 01/02/19 08:12 01/02/19 08:10 01/02/19 09:11 01/02/19 02:35 01/02/19 08:31 Exam: General: Chronically ill appearing 58 yo female in NAD, accompanied by her Resp: even and unlabored respirations Ext: 1+ LE edema] [Assessment: []58 yo female with metastatic SCLC now progressive s/p 2 months of Paclitaxel with progressive pain likely related to pathologic fracture at the site of prior palliative RT. Her pain has been very difficult to control and has extensive progression of liver disease. She has now comfortable with a CANE FURNITURE MAKER. Plan: 1. Metastatic SCLC - refractory disease - recommend Hospice 2. Intractable pain secondary to extensive bony metastases and pathologic fracture of the L acetabulum - pain is now controlled with dilaudid CANE FURNITURE MAKER - she has failed multiple attempts to control with pain with oral/transdermal opiates and failed Dispo: recommend dc to Hospice residence and maintaining CANE FURNITURE MAKER for comfort, palliative consult pending
--- NOTE | 2019-01-02 11:32 | CONSULT ---
Palliative / Hospice Consult Ordering Provider: Amena Kaiser - MARIN-Jennifer - Subjective Code Status: DNR Advance Directives Location: In Chart MOLST Part A Completed: Yes - on chart MOLST Part E Completed:: Yes - on chart - History or Present Illness History or Present Illness: 58yo female with metastatic SCLC presents to hospital with uncontrolled pain. Cancer has progressed on chemotherapy. PMH is significant for psoriatic arthritis, DM, DVT, COPD, chronic back pain, hyperlipidemia and HTN. CT Abd/ pelvis showing progression of the liver mets, no change in L lung nodule, T11 progression of disease and pathologic fracture of L acetabulum and ribs 6 & 7, no other labs on this visit. 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 Pt is a smoker, no etoh no drugs with 2 sons and 2 grandchildren and another on the way. Pt does have pets. All history is from the pt and medical records. - Objective Active Medications: Acetaminophen (Tylenol Tab*) 650 mg PO TID PRN PRN Reason: PAIN Last Admin: 12/31/18 20:49 Dose: 650 mg Allopurinol (Zyloprim Tab*) 300 mg PO DAILY [facility] Last Admin: 01/02/19 08:37 Dose: 300 mg Apixaban (Eliquis*) 2.5 mg PO BID [facility] Last Admin: 01/02/19 08:37 Dose: 2.5 mg Apremilast (Otezla (Nf)) 30 mg PO BID [facility] Last Admin: 01/02/19 08:38 Dose: Not Given Citalopram Hydrobromide (Celexa Tab*) 40 mg PO DAILY [facility] Last Admin: 01/02/19 08:36 Dose: 40 mg Diltiazem HCl (Cardizem Cd Cap*) 180 mg PO BID [facility] Last Admin: 01/02/19 08:37 Dose: 180 mg Fentanyl (Duragesic Patch 100 Mcg/Hr *) 200 mcg TRANSDERM Q72H [facility] Last Admin: 12/31/18 18:05 Dose: 200 mcg Furosemide (Lasix Tab*) 20 mg PO DAILY [facility] Last Admin: 01/02/19 08:36 Dose: 20 mg Gabapentin (Neurontin Cap(*)) 600 mg PO 0900,1200 [facility] Last Admin: 01/02/19 08:36 Dose: 600 mg Gabapentin (Neurontin Cap(*)) 1,200 mg PO BEDTIME [facility] Last Admin: 01/01/19 20:24 Dose: 1,200 mg Heparin Sodium (Porcine) (Heparin Flush Port (Ivad)) 5 ml FLUSH DAILY [facility]; Protocol Last Admin: 01/02/19 08:38 Dose: Not Given Hydromorphone HCl (Dilaudid Inj1s*) 2 mg IV SLOW PU Q1H PRN PRN Reason: PAIN Last Admin: 01/01/19 10:36 Dose: 2 mg Hydromorphone HCl (Dilaudid Embedded Software Design Engineer*) 20 mg in 20 mls @ 0 mls/hr ASSISTANT ACCOUNTING MANAGER .change Q24H [facility]; Protocol Last Admin: 01/02/19 08:21 Dose: 0.3 mls/hr Lorazepam (Ativan Inj*) 1 mg IV PUSH Q4H PRN PRN Reason: ANXIETY Last Admin: 01/01/19 08:52 Dose: 1 mg Metformin HCl (Glucophage*) 500 mg PO BID WITH MEALS [facility] Last Admin: 01/02/19 08:36 Dose: 500 mg Miscellaneous (Ativan Pyxis Alanis) 1 ea N/A .ATIVAN IV ALANIS PRN PRN Reason: PYXIS ALANIS Mometasone Furoate (Asmanex 220 Mcg Mdi *) 1 puff INH QPM [facility] Last Admin: 01/01/19 19:59 Dose: 1 puff Naloxone HCl (Narcan*) 0.08 mg IV PUSH .Q2MIN PRN PRN Reason: OVERSEDATION Pharmacy Profile Note (Fentanyl Patch Check Q Shift) 1 note FOLLOW UP 0700, 1900 [facility] Last Admin: 01/02/19 06:09 Dose: 1 note Prednisone (Deltasone Tab*) 20 mg PO DAILY [facility] Last Admin: 01/02/19 08:37 Dose: 20 mg Tiotropium [place] (Spiriva Cap.Inh*) 1 cap INH DAILY [facility] Last Admin: 01/02/19 08:01 Dose: 1 cap Vital Signs: Vital Signs: Temp Pulse Resp BP Pulse Ox 98.4 F 75 18 119/69 96 01/02/19 08:12 01/02/19 08:10 01/02/19 09:11 01/02/19 02:35 01/02/19 08:31 Patient Weight: Weight 124.783 kg Intake and Output: Intake & Output 12/31/18 01/01/19 01/02/19 01/03/19 06:59 06:59 06:59 06:59 Intake Total 698 1214 Balance 698 1214 Weight 130.362 kg 124.783 kg Intake: IV Fluids 98 224 NS (0.9%) 98 224 Oral 600 990 Other: Estimated Void Large Large # Bowel Movements 1 Estimated Stool Amount Small # Voids 1 1 ADLs: Meal Record Start: 12/31/18 16: 06 Freq: DAILY@0900,1400,1800 Status: Active Protocol: Created 12/31/18 16:06 System (Rec: 12/31/18 16:06 System MED-C13) Document 12/31/18 18:00 [id number] (Rec: 12/31/18 18:30 [id number] MED-C04) Document 12/31/18 18:47 [id number] (Rec: 12/31/18 18:47 [id number] MED-C04) Document 01/01/19 08:47 [id number] (Rec: 01/01/19 08:47 [id number] MED-C09) Document 01/01/19 14:00 [id number] (Rec: 01/01/19 16:37 [id number] MED-C11) Document 01/01/19 18:00 [id number] (Rec: 01/01/19 19:34 [id number] MED-C09) Document 01/02/19 09:00 [id number] (Rec: 01/02/19 10:27 [id number] MED-C09) Intake and Output Start: 12/31/18 16: 06 Freq: DAILY@0600,1400,2200 Status: Active Protocol: Created 12/31/18 16:06 System (Rec: 12/31/18 16:06 System MED-C13) Document 12/31/18 22:00 [id number] (Rec: 12/31/18 22:13 [id number] MED-C13) Document 01/01/19 06:00 [id number] (Rec: 01/01/19 06:07 [id number] MED-C07) Document 01/01/19 14:00 [id number] (Rec: 01/01/19 19:32 [id number] MED-C09) Document 01/01/19 19:33 [id number] (Rec: 01/01/19 19:34 [id number] [facility]-C09) Document 01/01/19 22:00 [id number] (Rec: 01/01/19 22:07 [id number] [facility]-C04) Document 01/02/19 05:33 [id number] (Rec: 01/02/19 05:34 [id number] MED-C09) Head: Normal Ears/Nose/Mouth/Throat: NL Teeth, Lips, Gums Neck: NL Appearance and Movements; NL JVP Neurological: Alert and Oriented x 3 - Assessment Assessment: 76 yo female with metastatic SCLC eligible for hospice - Plan Consult Plan (MU): Hospice Plan: Spoke with pt and . They are interested in hospice at the residence. I gave them a brochure, discussed hospice and encouraged to visit the residence. They are very sad that cancer has progressed. I did discuss other options like SNF with hospice but pt doesn't want to go to SNF and I discussed home hospice but they don't have anyone to stay with the pt. is unable to stop working. Pt is eligible for hospice with the diagnosis of metastatic SCLC. KPS 30%, PPS 30% - Time On Unit Date of Evaluation: 01/02/19 Hospice Consult Time in: 11:00 Hospice Consult Time Out: 12:00 Hospice Consult Time Total: 60 > 50% of Time Spend In Counseling or Coordinating Care: Yes
[2019-01-02] MEDS: HYDROmorphone INJ1* 1 MG/ML SYRINGE IV SLOW PU PRN ×4 (16:13→22:38)
[2019-01-02] MEDS: Mometasone 220 MCG MDI INH SCH (18:51)
[2019-01-02] MEDS: LORazepam INJ* 2 MG/ML 1 ML VIAL IV PUSH PRN (19:50)
[2019-01-02] MEDS: Gabapentin CAP(*) 400 MG PO SCH (19:58)
[2019-01-03] MEDS: HYDROmorphone INJ1* 1 MG/ML SYRINGE IV SLOW PU PRN ×12 (00:54→22:36)
[2019-01-03] MEDS: LORazepam INJ* 2 MG/ML 1 ML VIAL IV PUSH PRN ×6 (00:55→22:35)
[2019-01-03] MEDS: HYDROmorphone PCA* 20 MG/20 ML PCA.SYRING PCA SCH ×3 (02:25→13:19)
[2019-01-03] MEDS: Nystatin TOP POWDER* 15 GM BTL TOPICAL SCH ×3 (04:12→20:42)
[2019-01-03] MEDS: fentaNYL Patch Check Q Shift 1 NOTE FOLLOW UP SCH ×2 (06:56→18:58)
[2019-01-03] MEDS: Tiotropium CAP.INH* CAP.INH/18 MCG (USE ORDER SET !) INH SCH (07:38)
[2019-01-03] MEDS: Citalopram TAB* 40 MG PO SCH ×2 (08:41→11:04)
[2019-01-03] MEDS: Apixaban* 2.5 MG TAB PO SCH (08:41)
[2019-01-03] MEDS: Furosemide TAB* 20 MG PO SCH (08:41)
[2019-01-03] MEDS: Diltiazem CD CAP* 180 MG PO SCH ×2 (08:41→20:41)
[2019-01-03] MEDS: predniSONE TAB* 20 MG PO SCH (08:45)
--- NOTE | 2019-01-03 10:31 | PN ---
Progress Note - Progress Note Date of Service: 01/03/19 SOAP: Subjective: []had done well yesterday and then acute pain overnight. Describes diffuse back pain, spasm. Has been 10/10 despite marked increase in pain medication. She is taking pills, swallowing well. Had been weight baring and walking. Hip pain continues but is not as sever. Acetaminophen (Tylenol Tab*) 650 mg PO TID PRN PRN Reason: PAIN Last Admin: 12/31/18 20:49 Dose: 650 mg Allopurinol (Zyloprim Tab*) 300 mg PO DAILY [facility] Last Admin: 01/02/19 08:37 Dose: 300 mg Apixaban (Eliquis*) 2.5 mg PO BID [facility] Last Admin: 01/03/19 08:41 Dose: 2.5 mg Apremilast (Otezla (Nf)) 30 mg PO BID [facility] Last Admin: 01/02/19 19:59 Dose: Not Given Citalopram Hydrobromide (Celexa Tab*) 40 mg PO DAILY [facility] Last Admin: 01/02/19 08:36 Dose: 40 mg Diltiazem HCl (Cardizem Cd Cap*) 180 mg PO BID [facility] Last Admin: 01/03/19 08:41 Dose: 180 mg Fentanyl (Duragesic Patch 100 Mcg/Hr *) 200 mcg TRANSDERM Q72H [facility] Last Admin: 12/31/18 18:05 Dose: 200 mcg Furosemide (Lasix Tab*) 20 mg PO DAILY [facility] Last Admin: 01/03/19 08:41 Dose: 20 mg Gabapentin (Neurontin Cap(*)) 600 mg PO 0900,1200 [facility] Last Admin: 01/02/19 12:17 Dose: 600 mg Gabapentin (Neurontin Cap(*)) 1,200 mg PO BEDTIME [facility] Last Admin: 01/02/19 19:58 Dose: 1,200 mg Heparin Sodium (Porcine) (Heparin Flush Port (Ivad)) 5 ml FLUSH DAILY [facility]; Protocol Last Admin: 01/02/19 08:38 Dose: Not Given Hydromorphone HCl (Dilaudid Inj1s*) 2 mg IV SLOW PU Q30M PRN PRN Reason: PAIN Last Admin: 01/03/19 08:47 Dose: 2 mg Hydromorphone HCl (Dilaudid Intermediate Frame Tender*) 20 mg in 20 mls @ 0 mls/hr VISUAL MERCHANDISING MANAGER .change Q24H [facility]; Protocol Last Admin: 01/03/19 02:25 Dose: 1 mls/hr Lorazepam (Ativan Inj*) 1 mg IV PUSH Q4H PRN PRN Reason: ANXIETY Last Admin: 01/02/19 19:50 Dose: 1 mg Lorazepam (Ativan Inj*) 2 mg IV PUSH Q4H PRN PRN Reason: ANXIETY Last Admin: 01/03/19 05:06 Dose: 2 mg Metformin HCl (Glucophage*) 500 mg PO BID WITH MEALS [facility] Last Admin: 01/02/19 16:16 Dose: 500 mg Miscellaneous (Ativan Pyxis Alanis) 1 ea N/A .ATIVAN IV ALANIS PRN PRN Reason: PYXIS ALANIS Mometasone Furoate (Asmanex 220 Mcg Mdi *) 1 puff INH QPM [facility] Last Admin: 01/02/19 18:51 Dose: 1 puff Naloxone HCl (Narcan*) 0.08 mg IV PUSH .Q2MIN PRN PRN Reason: OVERSEDATION Nystatin (Nystatin Top Powder*) 1 applic TOPICAL BID [facility] Last Admin: 01/03/19 04:12 Dose: 1 applic Pharmacy Profile Note (Fentanyl Patch Check Q Shift) 1 note FOLLOW UP 0700, 1900 [facility] Last Admin: 01/03/19 06:56 Dose: 1 note Prednisone (Deltasone Tab*) 20 mg PO DAILY [facility] Last Admin: 01/03/19 08:45 Dose: 20 mg Tiotropium [place] (Spiriva Cap.Inh*) 1 cap INH DAILY [facility] Last Admin: 01/03/19 07:38 Dose: 1 cap Objective: [] Vital Signs Temp Pulse Resp BP Pulse Ox 98.1 F 93 26 144/84 93 01/03/19 07:25 01/03/19 07:38 01/03/19 08:47 01/03/19 07:39 01/03/19 07:38 HEENT: no thrush CTA Tachy obeses she is in sever pain, diffuse tenderness across lower back AAOx 3 Assessment: []58 year old IV SSLC, metastaic to bone and progressive with pathologic hip fractures. She is planning transfer to hospice facility. Had been doing well yesterday and then developed acute lower back pain. Question of fracture and spasm. Pain has been resistant to increased narcotics and Ativan. Plan: []1. Planning transfer to hospice facility when bed available, will facilitate. 2. Flexeril 10 mg po tid 3. Toradol 30 mg IV x 3 4. Dilaudid VISUAL MERCHANDISING MANAGER, total dose 40 mg over 24 hrs - 1 mg CI to 2 mg CI - No bolus - dilaudid 2 mg IV bolus q 30 5. Ativan to 2 mg IV q 2 hrs prn 6. Stop non-essential medications: - Apremilast - Metformin - Allopurinol - Eliquis - Lasix
[2019-01-03] MEDS ORDERED: Ketorolac INJ* 30 MG/ML 1 ML VIAL IV PUSH PRN (10:35)
[2019-01-03] MEDS: metFORMIN* 500 MG TAB PO SCH (10:37)
[2019-01-03] MEDS: Allopurinol TAB* 300 MG PO SCH (10:38)
[2019-01-03] MEDS: APREMILAST 30 MG PO SCH (10:38)
[2019-01-03] MEDS: Cyclobenzaprine TAB* 10 MG PO PRN ×2 (11:00→11:04)
[2019-01-03] MEDS: Gabapentin CAP(*) 300 MG PO SCH ×2 (11:01→11:35)
[2019-01-03] MEDS: fentaNYL PATCHs 100 MCG/HR TRANSDERM SCH (15:52)
[2019-01-03] MEDS: Mometasone 220 MCG MDI INH SCH (19:39)
[2019-01-03] MEDS ORDERED: Furosemide IV* 10 MG/ML VIAL (40 MG) IV ONE (20:12)
[2019-01-03] MEDS: Gabapentin CAP(*) 400 MG PO SCH (20:41)
[2019-01-03] MEDS ORDERED: APREMILAST 30 MG PO SCH (21:00)
[2019-01-04] MEDS: HYDROmorphone PCA* 20 MG/20 ML PCA.SYRING PCA SCH (00:45)
[2019-01-04] MEDS: HYDROmorphone INJ1* 1 MG/ML SYRINGE IV SLOW PU PRN ×4 (00:58→10:48)
[2019-01-04] MEDS: LORazepam INJ* 2 MG/ML 1 ML VIAL IV PUSH PRN ×4 (00:58→07:26)
[2019-01-04] MEDS: fentaNYL Patch Check Q Shift 1 NOTE FOLLOW UP SCH (06:50)
[2019-01-04] MEDS ORDERED: HYDROmorphone PCA* 20 MG/20 ML PCA.SYRING PCA SCH (07:31)
[2019-01-04] MEDS ORDERED: LORazepam INJ* 2 MG/ML 1 ML VIAL IV PUSH PRN (07:32)
--- NOTE | 2019-01-04 07:35 | PN ---
Progress Note - Progress Note Date of Service: 01/04/19 SOAP: Subjective: unresponsive but clearly in respiratory distress. breathing at 40-50 bpm despite frequent ativan and dilaudid Objective: RR:40-50 uncomfortable appearing using accessory muscles to breath Assessment: 58 yo F w metastatic small cell lung cancer, now comfort measures only awaiting hospice bed, though now appears to be in terminal decline and suspect she will in next 24-48 hours. clear respiratory distress so will increase dilaudid continuous infusion (no longer able to self administer) and ativan and stop all POs Plan: -increase CI dilaudid to 4 mg/hr -cont PRN nurse administered dilaudid q2 hr -increase ativan to 4 mg q2 hr -stop all POs
[2019-01-04 08:09] VITALS: BP 146/90
[2019-01-04] MEDS ORDERED: Atropine 1% (ORAL/SL)* 15 ML BTL SL PRN (10:43)
[2019-01-04] MEDS ORDERED: Scopolamine 1.5 mg* PATCH TRANSDERM SCH (11:00)
[2019-01-04] MEDS: Nystatin TOP POWDER* 15 GM BTL TOPICAL SCH (11:09)
--- NOTE | 2019-01-04 11:43 | PN ---
Hospitalist Progress Note Date of Service: 01/04/19 Called to bedside for 58 yo F with PMH metastatic small cell lung cancer, currently on comfort measures only. Pt on exam has , no spontaneous movements, pupils fixed and dilated, no pulse or heart breath, no breath sounds Time of : 11:30 AM Family Notified: Yes packet has been completed. Autopsy was offered to family and family has elected to not have an autopsy. Family working with cherri Mcdonnell/karie kelley
[2019-01-07] MEDS ORDERED: Scopolamine PATCH Remove* 1 NOTE MISC PATCH OFF SCH (11:00)
== END 2019-01-04 11:30 | disposition expired | DRG 343 ==
LOC: MED 15:56 → OBSVTOIN 15:56 → UNDOADMOB 15:56 → MED 01-02 12:43
PROVIDERS: ADMIT Internal Medicine Hematology & Oncology; ATTEND Internal Medicine Hematology & Oncology
DX: M84.48XA Pathological fracture, other site, initial encounter for fracture (principal); C79.51 Secondary malignant neoplasm of bone; C34.90 Malignant neoplasm of unspecified part of unspecified bronchus or lung; C78.7 Secondary malignant neoplasm of liver and intrahepatic bile duct; C79.31 Secondary malignant neoplasm of brain; Z68.42 Body mass index [BMI] 45.0-49.9, adult; G89.3 Neoplasm related pain (acute) (chronic); Z66 Do not resuscitate; Z51.5 Encounter for palliative care; L40.50 Arthropathic psoriasis, unspecified; E11.9 Type 2 diabetes mellitus without complications; J44.9 Chronic obstructive pulmonary disease, unspecified; M54.89 Other dorsalgia; E78.5 Hyperlipidemia, unspecified; I10 Essential (primary) hypertension; F17.210 Nicotine dependence, cigarettes, uncomplicated; L40.9 Psoriasis, unspecified; K21.9 Gastro-esophageal reflux disease without esophagitis; M19.90 Unspecified osteoarthritis, unspecified site; E66.9 Obesity, unspecified; G47.30 Sleep apnea, unspecified; R06.03 Acute respiratory distress; F41.9 Anxiety disorder, unspecified; Z86.718 Personal history of other venous thrombosis and embolism; Z88.8 Allergy status to other drugs, medicaments and biological substances; Z79.01 Long term (current) use of anticoagulants; Z79.84 Long term (current) use of oral hypoglycemic drugs; Z79.1 Long term (current) use of non-steroidal anti-inflammatories (NSAID); Z79.51 Long term (current) use of inhaled steroids; Z79.52 Long term (current) use of systemic steroids; Z79.899 Other long term (current) drug therapy; Z80.1 Family history of malignant neoplasm of trachea, bronchus and lung; Z82.49 Family history of ischemic heart disease and other diseases of the circulatory system; Z84.1 Family history of disorders of kidney and ureter; Z83.3 Family history of diabetes mellitus
CPT/HCPCS: 71260; 74177; 94640; 99232; 99233; A9270-GY; J1170; J1642; J1940; J2060; J2997; J7512; Q9967